=== PATIENT | male | born 1980 | race Hispanic/Latino ===

== ENCOUNTER 2016-11-23 15:06 | Emergency (ER) | payer OTHER ==
[~2016-11-23] VITALS: Ht 170.2 cm; Wt 152.0 kg
[2016-11-23 15:08] VITALS: BP 159/78
[2016-11-23] MEDS ORDERED: TEST200I15 (15:14)
[2016-11-23] MEDS ORDERED: LISI10TA4 (15:14)
--- NOTE | 2016-11-23 16:52 | REP ---
RENAL ULTRASOUND: Real-time sonographic evaluation of the kidneys is performed. The kidneys are normal in size and echotexture, right kidney measuring 12.3 x 6.4 x 6.5 cm and the left kidney 11.8 x 6.1 x 5.4 cm. There is no hydronephrosis, renal mass or nephrolithiasis. Urinary bladder is not well distended and not well evaluated. IMPRESSION: Negative renal ultrasound. Signed by Keo Khan MD 11/23/2016 04:54 P
--- NOTE | 2016-11-23 16:54 | REP ---
KUB ABDOMEN AND PELVIS: KUB film of abdomen and pelvis performed. Bowel gas pattern is normal. There is no evidence of bowel obstruction. Metallic clips are seen in the right upper quadrant. No definite abnormal calcifications are seen in the abdomen or pelvis. IMPRESSION: Unremarkable KUB exam. Signed by Keo Khan MD 11/23/2016 04:59 P
[2016-11-23 17:00] LABS: BASO % 0.5 % (0.0-1.0); EOS # 0.2 K/mm3 (0.0-0.50); EOS % 2.5 % (0.0-3.0); LARGE UNSTAINED CELL # 0.2 K/mm3 (0.0-0.4); LARGE UNSTAINED CELL % 1.9 % (0.0-4.0); LYMPH # 2.4 K/mm3 (1.5-4.5); LYMPH % 23.8 % (24.0-44.0); MEAN CORPUSCULAR HEMOGLOBIN 28.5 pg (27.0-33.0); MEAN CORPUSCULAR HGB CONC 34.2 g/dl (32.0-36.5); MEAN CORPUSCULAR VOLUME 83.3 fl (80.0-96.0); MONO # 0.5 K/mm3 (0.0-0.8); MONO % 4.8 % (0.0-5.0); NEUTROPHILS # 6.6 K/mm3 (1.8-7.7); NEUTROPHILS % 66.5 % (36.0-66.0); PLATELET COUNT, AUTOMATED 236 k/mm3 (150-450); RED CELL DISTRIBUTION WIDTH 13.9 % (11.5-14.5); WHITE BLOOD COUNT 9.9 K/mm3 (4.0-10.0)
[2016-11-23 17:26] LABS: ANION GAP 7 MEQ/L (8-16); BLOOD UREA NITROGEN 16 MG/DL (7-18); CALCIUM LEVEL 8.4 MG/DL (8.5-10.1); CARBON DIOXIDE LEVEL 28 MEQ/L (21-32); CHLORIDE LEVEL 103 MEQ/L (98-107); CREATININE FOR GFR 0.97 MG/DL (0.70-1.30); GLOMERULAR FILTRATION RATE > 60.0 (>60); GLUCOSE, FASTING 85 MG/DL (70-105); POTASSIUM SERUM 3.8 MEQ/L (3.5-5.1); SODIUM LEVEL 138 MEQ/L (136-145)
== END 2016-11-23 18:11 | disposition home or self-care (01) ==
LOC: M ED 15:36
DX: R30.0 Dysuria (principal); R31.0 Gross hematuria; Z79.899 Other long term (current) drug therapy; Z87.891 Personal history of nicotine dependence

== ENCOUNTER → 2016-11-23 | Outpatient (CLI) | payer OTHER ==
[~2016-11-23] MED LIST: LISI10TA4; TEST200I15
[2016-11-23 13:45] LABS: MEAN CORPUSCULAR HEMOGLOBIN 28.6 pg (27.0-33.0); MEAN CORPUSCULAR HGB CONC 33.5 g/dl (32.0-36.5); MEAN CORPUSCULAR VOLUME 85.2 fl (80.0-96.0); PLATELET COUNT, AUTOMATED 236 k/mm3 (150-450); WHITE BLOOD COUNT 8.4 K/mm3 (4.0-10.0)
[2016-11-23 13:58] LABS: ALBUMIN 3.5 GM/DL (3.2-5.2); ALKALINE PHOSPHATASE 80 U/L (45-117); ALT/SGPT 29 U/L (12-78); ANION GAP 6 MEQ/L (8-16); AST/SGOT 10 U/L (15-37); BILIRUBIN,TOTAL 0.7 MG/DL (0.2-1.0); BLOOD UREA NITROGEN 14 MG/DL (7-18); CALCIUM LEVEL 8.6 MG/DL (8.5-10.1); CARBON DIOXIDE LEVEL 31 MEQ/L (21-32); CHLORIDE LEVEL 103 MEQ/L (98-107); CHOLESTEROL LEVEL 217 MG/DL (<200); CREATININE FOR GFR 0.92 MG/DL (0.70-1.30); GLOMERULAR FILTRATION RATE > 60.0 (>60); GLUCOSE, FASTING 97 MG/DL (70-105); POTASSIUM SERUM 4.4 MEQ/L (3.5-5.1); SODIUM LEVEL 140 MEQ/L (136-145); TRIGLYCERIDES LEVEL 160 MG/DL (<150)
== END ==
LOC: M WUC 08:58
PROVIDERS: ATTEND Nurse Practitioner Family
DX: E29.1 Testicular hypofunction (principal)

== ENCOUNTER → 2017-11-14 | Outpatient (CLI) | payer OTHER ==
[2017-11-14 16:42] LABS: HEMOGLOBIN 15.3 g/dl (14.0-18.0); MEAN CORPUSCULAR VOLUME 85.2 fl (80.0-96.0); PLATELET COUNT, AUTOMATED 241 10^3/uL (150-450); RED BLOOD COUNT 5.28 10^6/uL (4.30-6.10); RED CELL DISTRIBUTION WIDTH 13.2 % (11.5-14.5); WHITE BLOOD COUNT 7.8 10^3/uL (4.0-10.0)
[2017-11-14 17:07] LABS: ERYTHROCYTE SEDIMENTATION RATE 8 mm/hr (0-15)
[2017-11-14 17:13] LABS: ALBUMIN 3.6 GM/DL (3.2-5.2); ALBUMIN/GLOBULIN RATIO 1.06 (1.00-1.93); ALKALINE PHOSPHATASE 87 U/L (45-117); ALT/SGPT 30 U/L (12-78); ANION GAP 7 MEQ/L (8-16); AST/SGOT 19 U/L (7-37); BILIRUBIN,TOTAL 0.6 MG/DL (0.2-1.0); BLOOD UREA NITROGEN 14 MG/DL (7-18); C REACTIVE PROTEIN QUANTITATIV 0.63 MG/DL (0.00-0.30); CALCIUM LEVEL 8.5 MG/DL (8.5-10.1); CARBON DIOXIDE LEVEL 28 MEQ/L (21-32); CHLORIDE LEVEL 101 MEQ/L (98-107); CHOLESTEROL LEVEL 232 MG/DL (<200); CREATININE FOR GFR 0.77 MG/DL (0.70-1.30); GLOMERULAR FILTRATION RATE > 60.0 (>60); GLUCOSE, FASTING 83 MG/DL (70-100); HDL CHOLESTEROL 58 MG/DL (>40); LDL CHOLESTEROL 149.2 MG/DL (<100); NON-HDL-C 174 MG/DL; POTASSIUM SERUM 4.6 MEQ/L (3.5-5.1); RHEUMATOID FACTOR QUANT < 10.0 IU/ML (0-15.0); SODIUM LEVEL 136 MEQ/L (136-145); TRIGLYCERIDES LEVEL 124 MG/DL (<150); URIC ACID 5.9 MG/DL (3.5-7.2)
[2017-11-19 10:19] LABS: ANA (HEP2) Negative (.); TESTOSTERONE %FREE+WEAKLY BOUN 23.1 % (9.0-46.0); TESTOSTERONE FREE+WEAKLY BOUND 50.6 ng/dL (40.0-250.0); TESTOSTERONE TOTAL 219 ng/dL (264-916)
[2017-11-19 14:16] LABS: Lyme Disease IgG Ab 18 kDa Ban Absent (.); Lyme Disease IgG Ab 23 kDa Ban Absent (.); Lyme Disease IgG Ab 28 kDa Ban Absent (.); Lyme Disease IgG Ab 30 kDa Ban Absent (.); Lyme Disease IgG Ab 39 kDa Ban Absent (.); Lyme Disease IgG Ab 41 kDa Ban Present (.); Lyme Disease IgG Ab 45 kDa Ban Absent (.); Lyme Disease IgG Ab 58 kDa Ban Absent (.); Lyme Disease IgG Ab 66 kDa Ban Absent (.); Lyme Disease IgG Ab 93 kDa Ban Absent (.); Lyme Disease IgG West Blot Int Negative (.); Lyme Disease IgG/IgM Antibodie <0.91 ISR (0.00-0.90); Lyme Disease IgM Ab 23 kDa Ban Absent (.); Lyme Disease IgM Ab 39 kDa Ban Absent (.); Lyme Disease IgM Ab 41 kDa Ban Absent (.); Lyme Disease IgM Ab Quantitati 0.82 index (0.00-0.79); Lyme Disease IgM West Blot Int Negative (.)
== END ==
LOC: M WUC 09:48
DX: E29.1 Testicular hypofunction (principal); M79.1 Myalgia
CPT/HCPCS: 84550

== ENCOUNTER 2017-11-30 09:01 | Emergency (ER) | payer MEDICAID, OTHER ==
[2017-11-30 10:48] LABS: INFLUENZA A AMPLIFICATION NEGATIVE (NEGATIVE); INFLUENZA B AMPLIFICATION NEGATIVE (NEGATIVE)
== END 2017-11-30 11:06 | disposition home or self-care (01) ==
LOC: M ED 09:01
DX: H66.91 Otitis media, unspecified, right ear (principal); R05 Cough; I10 Essential (primary) hypertension; Z87.891 Personal history of nicotine dependence; Z79.899 Other long term (current) drug therapy
CPT/HCPCS: 87502

== ENCOUNTER 2018-01-21 23:16 | Emergency (ER) | payer OTHER, MEDICAID ==
[2018-01-22] MEDS: GI COCKTAIL 50ML BTL(HYOSCYAMINE/MAALOX/LIDOCAINE VISCOUS)(1:3:1) PO (00:20)
[2018-01-22] MEDS: ONDANSETRON 4MG/2ML VIAL (J2405) IV (00:21)
[2018-01-22] MEDS: MORPHINE 4 MG/ML 1ML VIAL/SYRINGE (J2270) IV ×2 (00:21→01:04)
[2018-01-22] MEDS: NS 1,000 ML IV (00:22)
[2018-01-22] MEDS ORDERED: ISOVUE-370 76% 100ML VIAL (Q9967) As Ordered (00:33)
[2018-01-22 00:45] LABS: ALBUMIN 3.4 GM/DL (3.2-5.2); ALBUMIN/GLOBULIN RATIO 0.87 (1.00-1.93); ALKALINE PHOSPHATASE 80 U/L (45-117); ALT/SGPT 33 U/L (12-78); AMYLASE 66 U/L (25-115); ANION GAP 5 MEQ/L (8-16); AST/SGOT 15 U/L (7-37); BASO # 0.1 10^3/uL (0.0-0.2); BASO % 0.6 % (0.0-1.0); BILIRUBIN,DIRECT 0.1 MG/DL (0.0-0.2); BILIRUBIN,TOTAL 0.4 MG/DL (0.2-1.0); BLOOD UREA NITROGEN 18 MG/DL (7-18); CALCIUM LEVEL 8.3 MG/DL (8.5-10.1); CARBON DIOXIDE LEVEL 29 MEQ/L (21-32); CHLORIDE LEVEL 106 MEQ/L (98-107); CK-MB VALUE MASS 1.4 NG/ML (<3.6); CPK CREATINE PHOSPHOKINASE 70 U/L (39-308); CREATININE FOR GFR 0.97 MG/DL (0.70-1.30); EOS # 0.1 10^3/uL (0.0-0.50); EOS % 1.2 % (0.0-3.0); GLOMERULAR FILTRATION RATE > 60.0 (>60); GLUCOSE, FASTING 114 MG/DL (70-100); HEMATOCRIT 42.1 % (42.0-52.0); HEMOGLOBIN 14.7 g/dl (13.5-17.5); IMMATURE GRANULOCYTE % 0.4 % (0-3.0); LIPASE 156 U/L (73-393); LYMPH # 2.5 10^3/uL (1.5-4.5); LYMPH % 23.9 % (24.0-44.0); MEAN CORPUSCULAR HEMOGLOBIN 29.2 pg (27.0-33.0); MEAN CORPUSCULAR HGB CONC 34.9 g/dl (32.0-36.5); MEAN CORPUSCULAR VOLUME 83.5 fl (80.0-96.0); MONO # 0.8 10^3/uL (0.0-0.8); MONO % 7.3 % (0.0-5.0); NEUTROPHILS % 66.6 % (36.0-66.0); PLATELET COUNT, AUTOMATED 220 10^3/uL (150-450); POTASSIUM SERUM 3.7 MEQ/L (3.5-5.1); RED BLOOD COUNT 5.04 10^6/uL (4.30-6.10); RED CELL DISTRIBUTION WIDTH 12.9 % (11.5-14.5); SODIUM LEVEL 140 MEQ/L (136-145); TOTAL PROTEIN 7.3 GM/DL (6.4-8.2); TROPONIN I < 0.02 NG/ML (< 0.10); WHITE BLOOD COUNT 10.6 10^3/uL (4.0-10.0)
[2018-01-22 00:45] LABS: LACTIC ACID SEPSIS PROTOCOL 0.8 MMOL/L (0.4-2.0)
[2018-01-22] MEDS: OXYCODONE/APAP 5MG/325MG(BULK FOR ED) 1 TABLET PO (02:00)
== END 2018-01-22 02:24 | disposition home or self-care (01) ==
LOC: M ED 23:16
DX: R10.10 Upper abdominal pain, unspecified (principal); K42.9 Umbilical hernia without obstruction or gangrene; I10 Essential (primary) hypertension; Z79.899 Other long term (current) drug therapy
CPT/HCPCS: J2270

== ENCOUNTER 2018-01-22 09:17 | Day surgery (SDC) | payer OTHER ==
[2018-01-22 10:46] LABS: BASO # 0.1 10^3/uL (0.0-0.2); BASO % 0.4 % (0.0-1.0); EOS % 0.1 % (0.0-3.0); HEMATOCRIT 44.6 % (42.0-52.0); HEMOGLOBIN 15.3 g/dl (13.5-17.5); IMMATURE GRANULOCYTE % 0.4 % (0-3.0); LYMPH # 1.1 10^3/uL (1.5-4.5); LYMPH % 6.5 % (24.0-44.0); MEAN CORPUSCULAR HEMOGLOBIN 28.9 pg (27.0-33.0); MEAN CORPUSCULAR HGB CONC 34.3 g/dl (32.0-36.5); MEAN CORPUSCULAR VOLUME 84.2 fl (80.0-96.0); MONO # 0.9 10^3/uL (0.0-0.8); MONO % 5.8 % (0.0-5.0); NEUTROPHILS # 14.1 10^3/uL (1.8-7.7); NEUTROPHILS % 86.8 % (36.0-66.0); PLATELET COUNT, AUTOMATED 221 10^3/uL (150-450); RED CELL DISTRIBUTION WIDTH 12.9 % (11.5-14.5); WHITE BLOOD COUNT 16.2 10^3/uL (4.0-10.0)
[2018-01-22 11:08] LABS: ANION GAP 4 MEQ/L (8-16); BLOOD UREA NITROGEN 12 MG/DL (7-18); CALCIUM LEVEL 8.6 MG/DL (8.5-10.1); CARBON DIOXIDE LEVEL 30 MEQ/L (21-32); CHLORIDE LEVEL 102 MEQ/L (98-107); GLOMERULAR FILTRATION RATE > 60.0 (>60); GLUCOSE, FASTING 113 MG/DL (70-100); POTASSIUM SERUM 4.2 MEQ/L (3.5-5.1); SODIUM LEVEL 136 MEQ/L (136-145)
[2018-01-22] MEDS: ONDANSETRON 4 MG ORAL DISINTEGRATING TAB (Q0162 PER 1MG) PO (11:40)
[2018-01-22] MEDS: MORPHINE 10 MG/ML 1ML VIAL (J2270) IM (11:40)
[2018-01-22 11:51] LABS: KETONE, URINE AUTO RFX TRACE mg/dL (NEGATIVE); LEUKOCYTE ESTERASE UR AUTO RFX NEGATIVE (NEGATIVE); MUCUS, URINE RFX SMALL (NEGATIVE); NITRITE, URINE AUTO RFX NEGATIVE (NEGATIVE); RBC, URINE AUTO RFX 12 /HPF (0-3); SPECIFIC GRAVITY UR AUTO RFX 1.032 (1.002-1.035); SQUAM EPITHELIAL CELL UR AURFX 0 /HPF (0-6); WBC, URINE AUTO RFX 1 /HPF (0-3)
[2018-01-22] MEDS ORDERED: ISOVUE-370 76% 100ML VIAL (Q9967) As Ordered (12:55)
[2018-01-22] MEDS: NS 1,000 ML IV (13:30)
[2018-01-22] MEDS: MORPHINE 4 MG/ML 1ML VIAL/SYRINGE (J2270) IV ×2 (15:00→22:54)
[2018-01-22] MEDS: AMPICILLIN SOD/SULBACTAM SOD 1.5 GM in D5W MINI-BAG PLUS 50 ML IV (15:40)
[2018-01-22] MEDS ORDERED: MIDAZOLAM INJ 2 MG/2 ML VIAL (J2250) As Ordered (16:31)
[2018-01-22] MEDS ORDERED: LIDOCAINE 2% INJ 100 MG/5 ML SDV (FOR ANES.) As Ordered (16:32)
[2018-01-22] MEDS ORDERED: PROPOFOL 200 MG/20 ML VIAL As Ordered ×2 (16:32→16:33)
[2018-01-22] MEDS ORDERED: fentaNYL 100 MCG/2 ML INJECTION (J3010) As Ordered (16:32)
[2018-01-22] MEDS ORDERED: SUCCINYLCHOLINE 100 MG/5 ML SYRINGE (J0330) As Ordered (16:32)
[2018-01-22] MEDS ORDERED: ROCURONIUM BROMIDE 50 MG/5 ML VIAL As Ordered (16:33)
[2018-01-22] MEDS: metroNIDAZOLE 500 MG in APPROPRIATE DILUENT 1 EA IV (17:07)
[2018-01-22] MEDS ORDERED: ePHEDrine SULFATE 25 MG/5 ML(5MG/ML) SYRINGE As Ordered (17:25)
[2018-01-22] MEDS: BUPIVACAINE HCL 0.25% 30 ML VIAL As Ordered (17:30)
[2018-01-22] MEDS: LIDOCAINE 1% SDV INJ 30 ML VIAL As Ordered (17:30)
[2018-01-22] MEDS ORDERED: METOCLOPRAMIDE INJ 10MG/2ML VIAL (J2765) As Ordered (18:07)
[2018-01-22] MEDS ORDERED: ONDANSETRON 4MG/2ML VIAL (J2405) As Ordered (18:08)
[2018-01-22] MEDS ORDERED: KETOROLAC 60 MG/2 ML VIAL (J1885) As Ordered (18:10)
[2018-01-22] MEDS ORDERED: SUGAMMADEX SODIUM 500 MG/5 ML VIAL (BRIDION) As Ordered (18:20)
[2018-01-22] MEDS: LR 1,000 ML IV ×2 (18:40→19:00)
[2018-01-22] MEDS ORDERED: KETOROLAC 30 MG/ML VIAL (J1885) IV (18:45)
[2018-01-22] MEDS ORDERED: ACETAMINOPHEN TAB 650MG DOSE (2X325MG) PO (18:45)
[2018-01-22] MEDS ORDERED: METOCLOPRAMIDE INJ 10MG/2ML VIAL (J2765) IV (19:00)
[2018-01-22] MEDS ORDERED: PERCOCET 5MG/325MG TAB PO (19:00)
[2018-01-22] MEDS ORDERED: ONDANSETRON 4MG/2ML VIAL (J2405) IV (19:00)
[2018-01-22] MEDS ORDERED: MORPHINE 10 MG/ML 1ML VIAL (J2270) IV (19:00)
[2018-01-22] MEDS: fentaNYL 100 MCG/2 ML INJECTION (J3010) IV ×4 (19:15→19:35)
[2018-01-22] MEDS: SENOKOT S TAB PO (21:00)
[2018-01-22] MEDS: AMPICILLIN SOD/SULBACTAM SOD 3 GM in D5W MINI-BAG PLUS 100 ML IV (22:54)
[2018-01-22] MEDS: NORCO, ANEXSIA 5/325MG TABLET (HYDROcodone/ACETAMINOPHEN) PO (22:54)
[2018-01-23] MEDS: metroNIDAZOLE 500 MG in APPROPRIATE DILUENT 1 EA IV ×2 (01:00→09:06)
[2018-01-23] MEDS: AMPICILLIN SOD/SULBACTAM SOD 3 GM in D5W MINI-BAG PLUS 100 ML IV ×2 (04:23→10:47)
[2018-01-23 06:22] LABS: BASO # 0.1 10^3/uL (0.0-0.2); BASO % 0.7 % (0.0-1.0); EOS # 0.1 10^3/uL (0.0-0.50); EOS % 1.1 % (0.0-3.0); HEMATOCRIT 37.4 % (42.0-52.0); IMMATURE GRANULOCYTE % 0.3 % (0-3.0); LYMPH # 1.8 10^3/uL (1.5-4.5); LYMPH % 24.6 % (24.0-44.0); MEAN CORPUSCULAR HGB CONC 33.7 g/dl (32.0-36.5); MONO # 0.7 10^3/uL (0.0-0.8); MONO % 9.3 % (0.0-5.0); NEUTROPHILS # 4.6 10^3/uL (1.8-7.7); PLATELET COUNT, AUTOMATED 170 10^3/uL (150-450); RED BLOOD COUNT 4.35 10^6/uL (4.30-6.10); RED CELL DISTRIBUTION WIDTH 13.1 % (11.5-14.5); WHITE BLOOD COUNT 7.2 10^3/uL (4.0-10.0)
[2018-01-23 06:33] LABS: HEMOGLOBIN 12.6 g/dl (13.5-17.5)
[2018-01-23 06:53] LABS: ANION GAP 5 MEQ/L (8-16); BLOOD UREA NITROGEN 10 MG/DL (7-18); CARBON DIOXIDE LEVEL 31 MEQ/L (21-32); CHLORIDE LEVEL 103 MEQ/L (98-107); CREATININE FOR GFR 0.85 MG/DL (0.70-1.30); GLOMERULAR FILTRATION RATE > 60.0 (>60); GLUCOSE, FASTING 97 MG/DL (70-100); POTASSIUM SERUM 3.6 MEQ/L (3.5-5.1); SODIUM LEVEL 139 MEQ/L (136-145)
[2018-01-23] MEDS: SENOKOT S TAB PO (09:06)
[2018-01-23] MEDS: ENOXAPARIN 40 MG/0.4 ML SYRINGE (J1650) SC (09:06)
[2018-01-23] MEDS: NORCO, ANEXSIA 5/325MG TABLET (HYDROcodone/ACETAMINOPHEN) PO (09:08)
== END 2018-01-23 13:29 | disposition home or self-care (01) ==
LOC: M SDC 01-23 13:29 → M ED 09:17 → M SDC 15:40 → M MSPAV 19:48
DX: K35.80 Unspecified acute appendicitis (principal); I10 Essential (primary) hypertension; E66.01 Morbid (severe) obesity due to excess calories; K43.2 Incisional hernia without obstruction or gangrene; Z68.44 Body mass index [BMI] 60.0-69.9, adult; G47.9 Sleep disorder, unspecified
CPT/HCPCS: 44970

== ENCOUNTER 2018-02-12 08:03 | Emergency (ER) | payer OTHER | END 2018-02-12 10:55 | disposition home or self-care (01) | LOC: M ED 08:03 | DX: T81.4XXA Infection following a procedure, initial encounter (principal); Y92.9 Unspecified place or not applicable; Y93.9 Activity, unspecified; I10 Essential (primary) hypertension; K46.9 Unspecified abdominal hernia without obstruction or gangrene | CPT/HCPCS: 76705 ==

== ENCOUNTER → 2018-12-05 | Outpatient (REF) | payer OTHER ==
[~2018-12-05] MED LIST changes: +AUGM875T28 PO; +BACT800T5 PO; +FLAG500T PO; +LEVA750T7 PO; +NAPR-885 PO; +PERC5TAB12 PO; +VITA-121 PO
[2018-12-05 12:46] LABS: APPEARANCE, URINE CLEAR (CLEAR); BACTERIA, URINE AUTO NEGATIVE (NEGATIVE); BILIRUBIN, URINE AUTO NEGATIVE (NEGATIVE); BLOOD, URINE BLOOD NEGATIVE (NEGATIVE); COLOR, URINE YELLOW (YELLOW); GLUCOSE, URINE (UA) AUTO NEGATIVE (NEGATIVE); KETONE, URINE AUTO NEGATIVE (NEGATIVE); LEUKOCYTE ESTERASE, URINE AUTO NEGATIVE (NEGATIVE); MUCUS, URINE SMALL (NEGATIVE); NITRITE, URINE AUTO NEGATIVE (NEGATIVE); PROTEIN, URINE AUTO NEGATIVE (NEGATIVE); RBC, URINE AUTO 0 /HPF (0-3); SPECIFIC GRAVITY URINE AUTO 1.018 (1.002-1.035); SQUAMOUS EPITHELIAL CELL UR AU 0 /HPF (0-6); UROBILINOGEN, URINE AUTO 0.2 mg/dL (0.0-2.0); WBC, URINE AUTO 1 /HPF (0-3)
[2018-12-05 12:48] LABS: BASO # 0.1 10^3/uL (0.0-0.2); BASO % 0.9 % (0.0-1.0); EOS # 0.2 10^3/uL (0.0-0.50); EOS % 2.2 % (0.0-3.0); HEMATOCRIT 44.6 % (42.0-52.0); HEMOGLOBIN 14.9 g/dl (13.5-17.5); LYMPH # 2.7 10^3/uL (1.5-4.5); LYMPH % 25.4 % (24.0-44.0); MEAN CORPUSCULAR HEMOGLOBIN 27.6 pg (27.0-33.0); MEAN CORPUSCULAR HGB CONC 33.4 g/dl (32.0-36.5); MEAN CORPUSCULAR VOLUME 82.7 fl (80.0-96.0); MONO # 0.7 10^3/uL (0.0-0.8); MONO % 6.7 % (0.0-5.0); NEUTROPHILS # 6.7 10^3/uL (1.8-7.7); NEUTROPHILS % 64.2 % (36.0-66.0); PLATELET COUNT, AUTOMATED 295 10^3/uL (150-450); RED BLOOD COUNT 5.39 10^6/uL (4.30-6.10); WHITE BLOOD COUNT 10.5 10^3/uL (4.0-10.0)
[2018-12-05 13:15] LABS: HEMOGLOBIN A1c 6.1 %
[2018-12-05 13:32] LABS: ALBUMIN 3.6 GM/DL (3.2-5.2); ALT/SGPT 32 U/L (12-78); BILIRUBIN,TOTAL 0.5 MG/DL (0.2-1.0); BLOOD UREA NITROGEN 14 MG/DL (7-18); CALCIUM LEVEL 9.1 MG/DL (8.5-10.1); CARBON DIOXIDE LEVEL 28 MEQ/L (21-32); CHLORIDE LEVEL 101 MEQ/L (98-107); CHOLESTEROL LEVEL 252 MG/DL (<200); CHOLESTEROL RISK RATIO 4.581 (<5); FREE T4 1.18 NG/DL (0.76-1.46); GLOMERULAR FILTRATION RATE > 60.0 (>60); GLUCOSE, FASTING 85 MG/DL (70-100); HDL CHOLESTEROL 55 MG/DL (>40); LDL CHOLESTEROL 148 MG/DL (<100); NON-HDL-C 197 MG/DL; POTASSIUM SERUM 4.4 MEQ/L (3.5-5.1); SODIUM LEVEL 137 MEQ/L (136-145); TOTAL 25(OH) VITAMIN D 15.5 NG/ML (30.0-100.0); TOTAL PROTEIN 7.2 GM/DL (6.4-8.2); TRIGLYCERIDES LEVEL 243 MG/DL (<150)
== END ==
LOC: M LAB 11:50
PROVIDERS: ATTEND Family Medicine
DX: Z13.228 Encounter for screening for other metabolic disorders (principal)

== ENCOUNTER 2019-02-17 14:13 | Emergency (ER) | payer OTHER ==
[~2019-02-17] VITALS: Ht 170.2 cm; Wt 172.7 kg
[2019-02-17 14:54] LABS: BASO # 0.1 10^3/uL (0.0-0.2); BASO % 0.8 % (0.0-1.0); EOS # 0.2 10^3/uL (0.0-0.50); EOS % 2.5 % (0.0-3.0); HEMATOCRIT 40.5 % (42.0-52.0); HEMOGLOBIN 13.4 g/dl (13.5-17.5); LYMPH % 24.9 % (24.0-44.0); MEAN CORPUSCULAR HEMOGLOBIN 27.9 pg (27.0-33.0); MEAN CORPUSCULAR HGB CONC 33.1 g/dl (32.0-36.5); MEAN CORPUSCULAR VOLUME 84.4 fl (80.0-96.0); MONO # 0.6 10^3/uL (0.0-0.8); MONO % 7.8 % (0.0-5.0); NEUTROPHILS % 63.2 % (36.0-66.0); PLATELET COUNT, AUTOMATED 249 10^3/uL (150-450); WHITE BLOOD COUNT 7.9 10^3/uL (4.0-10.0)
[2019-02-17 15:13] LABS: ERYTHROCYTE SEDIMENTATION RATE 29 mm/hr (0-15)
[2019-02-17 15:18] LABS: BLOOD UREA NITROGEN 12 MG/DL (7-18); C REACTIVE PROTEIN QUANTITATIV 1.15 MG/DL (0.00-0.30); CALCIUM LEVEL 8.4 MG/DL (8.5-10.1); CARBON DIOXIDE LEVEL 30 MEQ/L (21-32); CHLORIDE LEVEL 108 MEQ/L (98-107); CREATININE FOR GFR 0.87 MG/DL (0.70-1.30); GLOMERULAR FILTRATION RATE > 60.0 (>60); GLUCOSE, FASTING 109 MG/DL (70-100); POTASSIUM SERUM 3.9 MEQ/L (3.5-5.1); SODIUM LEVEL 141 MEQ/L (136-145)
[2019-02-17 16:16] LABS: NT-PRO BNP 54 PG/ML (<125)
--- NOTE | 2019-02-17 16:39 | REP ---
Duplex extremity venous ultrasound: Bilateral lower extremity. History: Redness and swelling bilateral lower legs. Evaluate for DVT. Findings: Exam quality is somewhat inhibited due to patient body habitus. The deep veins are anechoic and fully compressible from the groin to the popliteal fossa in the left and right lower extremity. Color flow imaging is homogeneous. Spectral Doppler interrogation demonstrates intact respiratory variation in flow and normal manual augmentation of flow. There is no evidence of deep vein thrombosis. Impression: Negative bilateral lower extremity duplex venous ultrasound. No evidence of deep vein thrombosis. Electronically Signed by Yinka Lerma MD 02/17/2019 04:31 P
[2019-02-17] MEDS ORDERED: DOXY100C37 PO (16:56)
[2019-02-17] MEDS ORDERED: JOBSMIS MC (16:58)
[2019-02-17 17:13] VITALS: BP 148/77
== END 2019-02-17 17:23 | disposition home or self-care (01) ==
LOC: M ED 14:13
DX: L03.115 Cellulitis of right lower limb (principal); L03.116 Cellulitis of left lower limb; E66.9 Obesity, unspecified; I87.2 Venous insufficiency (chronic) (peripheral); I10 Essential (primary) hypertension; E78.5 Hyperlipidemia, unspecified; Z72.0 Tobacco use

== ENCOUNTER → 2019-03-16 | Outpatient (CLI) | payer OTHER ==
[~2019-03-16] MED LIST changes: +DOXY100C37 PO; +JOBSMIS MC
[2019-03-16 15:32] LABS: HEMATOCRIT 46.7 % (42.0-52.0); HEMOGLOBIN 14.9 g/dl (13.5-17.5); MEAN CORPUSCULAR HEMOGLOBIN 27.3 pg (27.0-33.0); MEAN CORPUSCULAR HGB CONC 31.9 g/dl (32.0-36.5); MEAN CORPUSCULAR VOLUME 85.5 fl (80.0-96.0); PLATELET COUNT, AUTOMATED 289 10^3/uL (150-450); RED BLOOD COUNT 5.46 10^6/uL (4.30-6.10); WHITE BLOOD COUNT 8.7 10^3/uL (4.0-10.0)
[2019-03-16 15:43] LABS: ALBUMIN 3.6 GM/DL (3.2-5.2); ALT/SGPT 41 U/L (12-78); BILIRUBIN,TOTAL 0.4 MG/DL (0.2-1.0); BLOOD UREA NITROGEN 21 MG/DL (7-18); CALCIUM LEVEL 9.2 MG/DL (8.5-10.1); CARBON DIOXIDE LEVEL 33 MEQ/L (21-32); CHLORIDE LEVEL 98 MEQ/L (98-107); CREATININE FOR GFR 1.05 MG/DL (0.70-1.30); GLOMERULAR FILTRATION RATE > 60.0 (>60); GLUCOSE, FASTING 96 MG/DL (70-100); POTASSIUM SERUM 3.9 MEQ/L (3.5-5.1); SODIUM LEVEL 138 MEQ/L (136-145); TOTAL PROTEIN 7.8 GM/DL (6.4-8.2)
== END ==
LOC: M WUC 11:23
PROVIDERS: ATTEND Nurse Practitioner Family
DX: I89.0 Lymphedema, not elsewhere classified (principal)

== ENCOUNTER → 2019-04-01 | Outpatient (RCR) | payer OTHER | LOC: M PT 03-17 08:30 | PROVIDERS: ATTEND Nurse Practitioner Family | DX: I89.0 Lymphedema, not elsewhere classified (principal) ==

== ENCOUNTER → 2019-04-01 | Outpatient (CLI) | payer OTHER ==
[2019-04-01 13:29] LABS: BLOOD UREA NITROGEN 12 MG/DL (7-18); CALCIUM LEVEL 9.3 MG/DL (8.5-10.1); CARBON DIOXIDE LEVEL 34 MEQ/L (21-32); CHLORIDE LEVEL 102 MEQ/L (98-107); CREATININE FOR GFR 0.92 MG/DL (0.70-1.30); GLOMERULAR FILTRATION RATE > 60.0 (>60); GLUCOSE, FASTING 110 MG/DL (70-100); POTASSIUM SERUM 3.7 MEQ/L (3.5-5.1); SODIUM LEVEL 142 MEQ/L (136-145)
== END ==
LOC: M LAB 11:40
PROVIDERS: ATTEND Nurse Practitioner Family
DX: E87.6 Hypokalemia (principal)

== ENCOUNTER 2019-04-15 08:30 | Outpatient (RCR) | payer OTHER | END 2019-05-02 | LOC: M PT 08:30 | PROVIDERS: ATTEND Nurse Practitioner Family | DX: I89.0 Lymphedema, not elsewhere classified (principal) ==

== ENCOUNTER → 2019-05-25 | Outpatient (CLI) | payer OTHER ==
[2019-05-25 16:34] LABS: BASO # 0.1 10^3/uL (0.0-0.2); BASO % 0.6 % (0.0-1.0); EOS # 0.1 10^3/uL (0.0-0.5); EOS % 1.4 % (0.0-3.0); HEMATOCRIT 45.9 % (42.0-52.0); HEMOGLOBIN 15.1 g/dl (13.5-17.5); LYMPH # 2.2 10^3/uL (1.5-5.0); LYMPH % 22.9 % (24.0-44.0); MEAN CORPUSCULAR HEMOGLOBIN 27.2 pg (27.0-33.0); MEAN CORPUSCULAR HGB CONC 32.9 g/dl (32.0-36.5); MEAN CORPUSCULAR VOLUME 82.6 fl (80.0-96.0); MONO # 0.8 10^3/uL (0.0-0.8); MONO % 8.4 % (0.0-5.0); NEUTROPHILS # 6.3 10^3/uL (1.5-8.5); NEUTROPHILS % 66.3 % (36.0-66.0); PLATELET COUNT, AUTOMATED 268 10^3/uL (150-450); RED BLOOD COUNT 5.56 10^6/uL (4.30-6.10); WHITE BLOOD COUNT 9.4 10^3/uL (4.0-10.0)
[2019-05-25 16:39] LABS: ALBUMIN 3.6 GM/DL (3.2-5.2); ALT/SGPT 32 U/L (12-78); BILIRUBIN,TOTAL 0.5 MG/DL (0.2-1.0); BLOOD UREA NITROGEN 12 MG/DL (7-18); CALCIUM LEVEL 9.2 MG/DL (8.5-10.1); CARBON DIOXIDE LEVEL 27 MEQ/L (21-32); CHLORIDE LEVEL 103 MEQ/L (98-107); CREATININE FOR GFR 0.94 MG/DL (0.70-1.30); GLOMERULAR FILTRATION RATE > 60.0 (>60); GLUCOSE, FASTING 81 MG/DL (70-100); SODIUM LEVEL 139 MEQ/L (136-145); TOTAL PROTEIN 7.1 GM/DL (6.4-8.2); TROPONIN I < 0.02 NG/ML (< 0.10)
[2019-05-25 17:03] LABS: H PYLORI QUALITATIVE IgG NEGATIVE (NEGATIVE)
== END ==
LOC: M WUC 14:05
PROVIDERS: ATTEND Nurse Practitioner Family
DX: R10.13 Epigastric pain (principal)

== ENCOUNTER 2019-11-17 12:20 | Inpatient (IN) | payer OTHER ==
[2019-11-17] VITALS (7 sets, daily range): BP systolic 135; BP diastolic 62–89; O2SAT 83–91
[~2019-11-17] VITALS: Ht 170.2 cm; Wt 170.3 kg
[~2019-11-17 12:20] MED LIST changes: +DULO30CA9 PO; +IPRA0.00 NEB; +LISI10TA4 PO; +MELO15TA28 PO; +MONT10TA4 PO; +OMEP-218 PO; +PRED10PA2 PO; +SYMB80INH INH
[2019-11-17] MEDS ORDERED: COMBIVENT RESPIMAT 100-20MCG INHALER 4GM INH ONE (13:30)
[2019-11-17 13:32] LABS: ABG BASE EXCESS -2.7 (-2.0-2.0); ABG HCO3 20.2 MEQ/L (22.0-26.0); ABG O2 SATURATION 92.1 % (95.0-99.0); ABG PARTIAL PRESSURE CO2 30.4 mmHg (35.0-45.0); ABG PARTIAL PRESSURE O2 65.9 mmHg (75.0-100.0); ABG STANDARD HCO3 22.1 MEQ/L (22.0-26.0); ABG TOTAL CO2 21.2 MEQ/L (22.0-29.0); ABG pH (ARTERIAL) 7.441 UNITS (7.350-7.450); BASO # 0.1 10^3/uL (0.0-0.2); EOS # 0.8 10^3/uL (0.0-0.5); EOS % 6.3 % (0.0-3.0); HEMATOCRIT 46.7 % (42.0-52.0); HEMOGLOBIN 14.9 g/dl (13.5-17.5); LYMPH # 1.3 10^3/uL (1.5-5.0); LYMPH % 10.2 % (24.0-44.0); MEAN CORPUSCULAR HEMOGLOBIN 25.8 pg (27.0-33.0); MEAN CORPUSCULAR HGB CONC 31.9 g/dl (32.0-36.5); MEAN CORPUSCULAR VOLUME 80.9 fl (80.0-96.0); MONO % 7.4 % (0.0-5.0); NEUTROPHILS # 9.3 10^3/uL (1.5-8.5); NEUTROPHILS % 71.1 % (36.0-66.0); RED BLOOD COUNT 5.77 10^6/uL (4.30-6.10); WHITE BLOOD COUNT 13.1 10^3/uL (4.0-10.0)
[2019-11-17 13:41] LABS: INR 1.3; PARTIAL THROMBOPLASTIN TIME 26.7 SECONDS (25.0-38.4); PROTHROMBIN TIME 15.9 SECONDS (11.8-14.0)
--- NOTE | 2019-11-17 13:49 | REP ---
CHEST, SINGLE VIEW: Single view of the chest is performed and compared to prior studies most recent of which is 10/15/2019. There are diffuse bilateral infiltrates present which appear to have increased since prior study. The heart is upper limits of normal in size. Mediastinal silhouette appears somewhat magnified. Electronically Signed by Keo Khan MD 11/18/2019 09:10 A
[2019-11-17 14:00] LABS: ALBUMIN 2.7 GM/DL (3.2-5.2); ALT/SGPT 49 U/L (12-78); BILIRUBIN,DIRECT 0.1 MG/DL (0.0-0.2); BILIRUBIN,TOTAL 0.5 MG/DL (0.2-1.0); BLOOD UREA NITROGEN 14 MG/DL (7-18); CALCIUM LEVEL 8.9 MG/DL (8.5-10.1); CARBON DIOXIDE LEVEL 24 MEQ/L (21-32); CHLORIDE LEVEL 106 MEQ/L (98-107); CK-MB VALUE MASS 1.1 NG/ML (<3.6); CPK CREATINE PHOSPHOKINASE 342 U/L (39-308); CREATININE FOR GFR 1.15 MG/DL (0.70-1.30); FREE T4 1.43 NG/DL (0.76-1.46); GLOMERULAR FILTRATION RATE > 60.0 (>60); GLUCOSE, FASTING 133 MG/DL (70-100); MB/CK RELATIVE INDEX 0.32 (< OR =4); NT-PRO BNP 478 PG/ML (<125); POTASSIUM SERUM 4.2 MEQ/L (3.5-5.1); SODIUM LEVEL 138 MEQ/L (136-145); TOTAL PROTEIN 6.2 GM/DL (6.4-8.2); TROPONIN I < 0.02 NG/ML (< 0.10)
[2019-11-17] MEDS ORDERED: ISOVUE-370 76% 100ML VIAL (Q9967) As Ordered ONE (14:24)
[2019-11-17] MEDS ORDERED: SIME1CAP3 PO (14:50)
[2019-11-17] MEDS ORDERED: FUROSEMIDE 40 MG/4 ML VIAL (J1940) IV ONE (15:00)
[2019-11-17] MEDS ORDERED: ACETAMINOPHEN TAB 650MG DOSE (2X325MG) PO PRN (15:00)
[2019-11-17] MEDS: methylPREDNISolone INJ 125 MG/2 ML VIAL (J2930) IV SCH ×2 (15:44→20:57)
[2019-11-17] MEDS ORDERED: FUROSEMIDE 20 MG/2 ML VIAL (J1940) IV ONE (16:00)
[2019-11-17] MEDS ORDERED: LEVALBUTEROL 1.25 MG/0.5 ML CONCENTRATE NEB INH PRN (17:00)
--- NOTE | 2019-11-17 17:18 | HPEPDOC ---
[facility] Medical History & Physical Date of Admission Nov 17, 2019 Date of Service: Nov 17, 2019 Attending Physician: SHAY BALL DO History and Physical CHIEF COMPLAINT: Shortness of Breath HISTORY OF PRESENT ILLNESS: Patient is a 39 year old male who presented to the [facility] ER with complaint of worsening shortness of breath. The patient states that he has been seen at [facility] in [place] in October for shortness of breath. He is unsure of his diagnosis at the time but states that he was given antibiotics and steroids. Additionally per the medical record the patient was found to have retroperitoneal and mesenteric lymphadenopathy as well as mediastinal and bilateral hilar lymphadenopathy. The patient was referred to Hematology/Oncology for suspicion of lymphoma. On evaluation at [facility] on 11/05/2019 he was felt less likely to have lymphoma and more likely to have Sarcoidosis. The patient had been referred for CT-guided core biopsy of the retroperitoneal lymph nodes. Sine 11/05/2019 the patient has had progressively worsening shortness of breath. He states that he has difficulty breathing. He denies any chest pain associated with his shortness of breath. He denies any current leg swelling but states that he has a history of leg edema and cellulitis. He denies any rashes. In the ER the patient was found to be hypoxic with pulse oximetry of 80%. He was placed on Nasal cannula with 91% on 5L. Imaging demonstrated bilateral opacities. He was tachycardic and afebrile. Respiratory panel was negative. CTA of the chest was ordered and pending. Hospitalist service was consulted for further evaluation and management PAST MEDICAL HISTORY: 1. Obstructive Sleep Apnea/Pickwickian Syndrome Noncompliant on CPAP 2. Leg Edema 3. Hypertension 4. Morbid Obesity PAST SURGICAL HISTORY: NONE SOCIAL HISTORY: Patient is an on/off smoker. He states that he quit in . He previously smoked 1 pack per day. He admits to alcohol use socially. He denies any illicit or IV drug use. He denies any inhalational drug abuse FAMILY HISTORY: Patients mother is alive and well. She has a history of hyperlipidemia. His father is alive and living in [place]. He has a history of hypertension and COPD. ALLERGIES: Please see below. REVIEW OF SYSTEMS: CONSTITUTIONAL: Denies fevers, chills. Admits to fatigue. Admits to weight-loss over the past month. HEENT: Admits to a dry cough. Denies sore throat or difficulty swallowing CARDIOVASCULAR: Denies chest pain. Denies palpitations or feelings of the heart racing RESPIRATORY: Admits to shortness of breath with pain on deep inspiration. Admits to cough. Denies sputum production GASTROINTESTINAL: Denies abdominal pain. Denies nausea, vomiting, or diarrhea. GENITOURINARY: Denies dysuria. Denies increased frequency. Denies urgency SKIN: Denies any rashes or lesions. Denies any facial rashes. MUSCULOSKELETAL: Admits to chronic musculoskeletal pain and fatigue NEUROLOGICAL: Denies changes in gait or speech. Denies muscle weakness PSYCHIATRIC: Denies depression or anxiety ENDOCRINE: Denies heat intolerance or cold intolerance. HEMATOLOGIC/LYMPHATIC: Denies easy bruising or bleeding. HOME MEDICATIONS: Please see below. PHYSICAL EXAMINATION: VITAL SIGNS: Temperature 98.9, pulse 102, respiratory rate 20, blood pressure 107/79, pulse oximetry 93% 5L NC GENERAL APPEARANCE: Patient is awake, alert, and oriented. He is morbidly obese. He does not appear to be in any acute distress. He is sitting on the side of the bed. HEENT: Atraumatic, normocephalic. Eyes are nonicteric. Trachea is midline. CARDIOVASCULAR: Normal S1, S2. Distant heart sounds. Tachycardic. regular rhythm. No clicks, rubs, or murmurs LUNGS: Fine crackles in the bases otherwise clear vesicular breath sounds bilaterally. No wheezes or rhonchi. No accessory muscle use ABDOMEN: Morbidly obese. Soft, nondistended. Nontender. No rebound tenderness or guarding. Normoactive bowel sounds throughout EXTREMITIES: No edema. No nodules. Full and equal pulses in bilateral upper and lower extremities NEUROLOGICAL: No focal neurological deficits PSYCHIATRIC: Mood and affect appear appropriate LABORATORY DATA: See below. IMAGING: CHEST, SINGLE VIEW: Single view of the chest is performed and compared to prior studies most recent of which is 10/15/2019. There are diffuse bilateral infiltrates present which appear to have mildly increased since prior study. The heart is upper limits of normal in size. Mediastinal silhouette appears somewhat magnified. MICROBIOLOGY: Please see below. ASSESSMENT: Patient is a 39 year old male who presented to the [facility] ER with complaint of shortness of breath. He has been evaluated in October at [facility] and found to have retroperitoneal, mediastinal, and hilar lymphadenopath y. He had initially improved however since discharge he has progressively gotten more short of breath. In the ER the patient was found to be hypoxic . PLAN: 1. Acute Hypoxemic Respiratory Failure secondary to diffuse Interstitial Lung Disease vs virus pneumonia Our differential diagnosis includes: Sarcoidosis, acute interstitial pneumonia, eosinophilic pneumonia, nonspecific interstitial pneumonia, cryptogenic pneumonia -Patient presented with progressively worsening shortness of breath. He has been evaluated previously at [facility] and noted to have hilar and mediastinal lymphadenopathy. Since discharge patients shortness of breath has progressively worsening -Will obtain records from [facility] and [facility] -Chest X-ray was ordered and demonstrated diffuse bilateral infiltrates -CTA ordered. Official read is pending. Appears to demonstrate continued mediastinal lymphadenopathy as well as bilateral opacifications -Pulmonary Medicine has been consulted and case was discussed with Dr. Tam with recommendations for Methylprednisolone 80mg q8H IV. Recommendations appreciated -Respiratory orders for O2 Sats 88-92% -Does not appear to be infectious in etiology. Given patients previous episode at [facility] that appeared to respond to steroids he may possibly have an Interstitial lung disease such as Sarcoidosis or a cryptogenic organizing pneumonia. Will hold antibiotics for now. Patient looks nontoxic, he is afebrile, does not have increased cough. He has minimal whitish sputum production. Also patient does not have any generalized weakness, muscle ache. -ABG demonstrating hypoxemia. Normal pH and compensated CO2 2. Allergic Asthma -Will continue patients Symbicort and Montelukast -Xopenex Nebulizer Q4h as needed for shortness of breath - We'll check patient for aspergillosis 3. Obstructive Sleep Apnea/Pickwickian Syndrome -Patient is morbidly obese. He has been told he has ANCA but is noncompliant with sleep apnea. Likely has component of obesity hypoventilation syndrome given his weight. -ABG obtained demonstrated a pH of 7.4, pCO2 of 30.4, HCO3 20.2. -Will attempt to obtain records from patients prior sleep study where he was diagnosed with sleep apnea - Echo ordered to rule out pulmonary hypertension 4. Hypertension -Will continue Lisinopril 5. Chronic Pain -Continue patients Cymbalta 6. GERD -Will continue Omeprazole 7. DVT prophylaxis -Will continue Heparin SQ I, Shay Ball, have independently examined this patient and performed my own physical exam, as well as reviewed the documentation. I have discussed in detail with the resident / student the findings and plan of treatment as documented by the resident / student. I agree with their findings and treatment plan. I will continue to follow the patient during this hospital stay. Vital Signs Vital Signs Date Time Temp Pulse Resp B/P (MAP) Pulse Ox O2 Delivery O2 Flow Rate FiO2 11/17/19 13:35 116 22 91 Nasal Cannula 4.0 11/17/19 13:32 118/65 (82) 11/17/19 12:20 98.0 Laboratory Data Labs 24H Laboratory Tests 2 11/17/19 13:11: Immature Granulocyte % (Auto) 4.0H, Neutrophils (%) (Auto) 71.1H, Lymphocytes (%) (Auto) 10.2L, Monocytes (%) (Auto) 7.4H, Eosinophils (%) (Auto) 6.3H, Basophils (%) (Auto) 1.0, Neutrophils # (Auto) 9.3H, Lymphocytes # (Auto) 1.3L, Monocytes # (Auto) 1.0H, Eosinophils # (Auto) 0.8H, Basophils # (Auto) 0.1, Nucleated Red Blood Cells % (auto) 0.2H, Prothrombin Time 15.9H, Prothromb Time International Ratio 1.30, Activated Partial Thromboplast Time 26.7, Blood Gas Bicarbonate Standard 22.1, Arterial Blood pH 7.441, Arterial Blood Partial Pressure CO2 30.4L, Arterial Blood Partial Pressure O2 65.9L, Arterial Blood Total CO2 21.2L, Arterial Blood HCO3 20.2L, Arterial Blood Base Excess -2.7L, Arterial Blood Oxygen Saturation 92.1L, Anion Gap 8, Glomerular Filtration Rate > 60.0, Calcium Level 8.9, Total Bilirubin 0.5, Direct Bilirubin 0.1, Aspartate Amino Transf (AST/SGOT) 44H, Alanine Aminotransferase (ALT/SGPT) 49, Alkaline Ph osphatase 152H, Total Creatine Kinase 342H, Creatine Kinase MB 1.1, Creatine Kinase MB Relative Index 0.32, Troponin I < 0.02, SC-Gxq-A-Type Natriuretic Peptide 478H, Total Protein 6.2L, Albumin 2.7L, Albumin/Globulin Ratio 0.77L, Thyroid Stimulating Hormone (TSH) 2.540, Free Thyroxine 1.43 11/17/19 13:16: Lactic Acid Level 3.5*H CBC/BMP Laboratory Tests 11/17/19 13:11 Microbiology Microbiology 11/17/19 Blood Culture, Received Pending 11/17/19 Blood Culture, Received Pending 11/17/19 Respiratory Virus Panel (PCR) ([facility]) - Final, Complete Home Medications Scheduled Budesonide/Formoterol (Symbicort 80-4.5 Mcg Inhaler) 6.9 Gm Hfa.aer.ad, 2 PUFF INH BID Duloxetine Hcl (Duloxetine HCl) 30 Mg Capsule.dr, 30 MG PO DAILY Lisinopril (Lisinopril) 10 Mg Tablet, 10 MG PO DAILY Meloxicam (Meloxicam) 15 Mg Tablet, 15 MG PO DAILY Montelukast Sodium (Montelukast Sodium) 10 Mg Tablet, 10 MG PO DAILY Omeprazole (Omeprazole) 20 Mg Capsule.dr, 20 MG PO DAILY Scheduled PRN Ipratropium/Albuterol Sulfate (Iprat-Albut 0.5-3(2.5) mg/3 ml) 3 Ml Ampul.neb, 1 VIAL NEB Q6H PRN for SHORTNESS OF BREATH Simethicone (Simethicone) 180 Mg Capsule, 180 MG PO TID PRN for GAS PAIN Allergies Coded Allergies: dulaglutide (Verified Adverse Reaction, Unknown, 11/17/19) GI upset A-FIB/CHADSVASC A-FIB History Current/History of A-Fib/PAF?: No KYM BHATIA DO Nov 17, 2019 17:18 SHAY BALL DO Nov 18, 2019 07:37
[2019-11-17] MEDS ORDERED: SLF 3 ML SYR IV PRN (18:15)
[2019-11-17 18:27] LABS: ABG BASE EXCESS -0.4 (-2.0-2.0); ABG HCO3 22.3 MEQ/L (22.0-26.0); ABG O2 SATURATION 90.3 % (95.0-99.0); ABG PARTIAL PRESSURE CO2 31.5 mmHg (35.0-45.0); ABG PARTIAL PRESSURE O2 57.4 mmHg (75.0-100.0); ABG TOTAL CO2 23.2 MEQ/L (22.0-29.0); ABG pH (ARTERIAL) 7.467 UNITS (7.350-7.450)
[2019-11-17] MEDS: COMBIVENT RESPIMAT 100-20MCG INHALER 4GM INH SCH (19:54)
[2019-11-17] MEDS: SYMBICORT 80/4.5MCG INHALER 6GM INH SCH (19:54)
--- NOTE | 2019-11-17 20:15 | ECGEPIP ---
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
[2019-11-17] MEDS: HEPARIN SOD (PORCINE) 5000 UNITS/ML VIAL (J1644 PER 1000UNITS) SC SCH (20:57)
[2019-11-17] MEDS: SLF 3 ML SYR IV SCH (20:58)
[2019-11-18] VITALS (14 sets, daily range): BP systolic 119–137; BP diastolic 64–89; O2SAT 89–94
[2019-11-18] MEDS: COMBIVENT RESPIMAT 100-20MCG INHALER 4GM INH SCH ×4 (01:45→20:00)
[2019-11-18] MEDS: methylPREDNISolone INJ 125 MG/2 ML VIAL (J2930) IV SCH ×3 (05:10→21:14)
[2019-11-18] MEDS: SLF 3 ML SYR IV SCH ×3 (05:10→21:14)
[2019-11-18 05:32] LABS: HEMATOCRIT 45.7 % (42.0-52.0); HEMOGLOBIN 14.9 g/dl (13.5-17.5); MEAN CORPUSCULAR HEMOGLOBIN 26.5 pg (27.0-33.0); MEAN CORPUSCULAR HGB CONC 32.6 g/dl (32.0-36.5); MEAN CORPUSCULAR VOLUME 81.3 fl (80.0-96.0); PLATELET COUNT, AUTOMATED 145 10^3/uL (150-450); RED BLOOD COUNT 5.62 10^6/uL (4.30-6.10); WHITE BLOOD COUNT 13.5 10^3/uL (4.0-10.0)
[2019-11-18 05:39] LABS: BLOOD UREA NITROGEN 17 MG/DL (7-18); CALCIUM LEVEL 8.8 MG/DL (8.5-10.1); CARBON DIOXIDE LEVEL 23 MEQ/L (21-32); CHLORIDE LEVEL 105 MEQ/L (98-107); CREATININE FOR GFR 1.12 MG/DL (0.70-1.30); GLOMERULAR FILTRATION RATE > 60.0 (>60); GLUCOSE, FASTING 182 MG/DL (70-100); MAGNESIUM LEVEL 2.1 MG/DL (1.8-2.4); POTASSIUM SERUM 4.6 MEQ/L (3.5-5.1); SODIUM LEVEL 139 MEQ/L (136-145)
--- NOTE | 2019-11-18 07:11 | REP ---
CT ANGIOGRAM CHEST: TECHNIQUE: Axial contrast enhanced images from the thoracic inlet to the upper abdomen using 100 mL Isovue 370 intravenous contrast material with multiplanar reformations. There is no CT evidence of pulmonary embolism. There is no thoracic aortic aneurysm or dissection. Heart is not enlarged. There is extensive mediastinal and hilar adenopathy. Largest lymph node is in the right anterior pericarinal region and measures approximately 2.1 x 3.4 cm. No axillary adenopathy is seen. There is no pleural or pericardial effusion. There are diffuse bilateral infiltrates present. There is upper abdominal adenopathy in the gastrohepatic ligament, joe hepatis, and along the celiac axis. There is mild retrocrural adenopathy. There appear to be multiple small liver nodules. IMPRESSION: No CT evidence of pulmonary embolism. Diffuse bilateral infiltrates in the lungs. Extensive mediastinal and hilar adenopathy. Adenopathy is also seen in the upper abdomen. There appear to be multiple small liver nodules present. Electronically Signed by Keo Khan MD 11/18/2019 09:42 A
[2019-11-18] MEDS: SYMBICORT 80/4.5MCG INHALER 6GM INH SCH ×2 (07:23→20:11)
[2019-11-18] MEDS: MONTELUKAST 10 MG TAB PO SCH (08:39)
[2019-11-18] MEDS: HEPARIN SOD (PORCINE) 5000 UNITS/ML VIAL (J1644 PER 1000UNITS) SC SCH ×2 (08:39→21:14)
[2019-11-18] MEDS: lisinopriL 10 MG TAB PO SCH (08:40)
[2019-11-18] MEDS: OMEPRAZOLE 20 MG CAP PO SCH (08:40)
[2019-11-18] MEDS: MELOXICAM (MOBIC) 7.5 MG TAB PO SCH (08:40)
[2019-11-18] MEDS: DULoxetine 30 MG CAP (CYMBALTA) PO SCH (08:40)
[2019-11-18] MEDS: DOXYCYCLINE HYCLATE 100 MG TAB PO SCH ×2 (11:10→21:14)
[2019-11-18] MEDS: cefTRIAXone SOD 2 GM in D5W MINI-BAG PLUS 50 ML IV SCH (11:10)
--- NOTE | 2019-11-18 11:33 | CR ---
DATE OF CONSULTATION: 11/18/2019 ATTENDING PHYSICIAN: Eduardo Ball MD REASON FOR CONSULTATION: Abnormal x-ray and hypoxemia. HISTORY OF PRESENT ILLNESS: Mr. Mireles is a very pleasant 39-year-old gentleman who has smoked off and on much of his adult life. He said he started feeling somewhat poorly several months ago. He was seen by his attending in [place] for shortness of breath (SOB) complaints, admitted to [facility]. We only have some of those records available. He said he had an extensive cardiac workup, was told his heart was fine, told he may have had either pneumonia or sarcoid and was discharged. He said he really did not feel any better. He then went to [facility] and was sent to [facility]. From there, he was told he probably had lymphoma and was sent to see oncology. There he was told it was unlikely had lymphoma and was arranged for a biopsy of a retroperitoneal lymph, but due to increasing shortness of breath (SOB) was admitted here in the interim. His history is significant in that he said he had a positive home sleep test about 3 years ago for significant ANCA, but never followed up to get pressure therapy. He said he does have some sweats at night, but no fevers. He wonders if this is related to his sleep apnea, and it is quite likely. His appetite has been good. His weight has been stable. In fact, he said on purpose he has lost about 20 pounds over the last several months. No other systemic complaints. In the ER, CT scan shows significant (would like second listener for this highlighted section hilar mediastinal adenopathy with retroperitoneal adenopathy. There may be one hypodense lesion in the liver. He has diffuse both interstitial alveolar infiltrates without absolute convincing air bronchograms. Currently he has some occasional discomfort, only with deep inspiration. He says his cough is productive occasionally of some yellowish greenish sputum. Maybe some mild blood tinged material with a cough paroxysm. He denies any previous known pulmonary history other than his smoking. ALLERGIES: Listed as: 1. DULAGLUTIDE. CURRENT MEDICATIONS IN HOSPITAL: - Tylenol - subcu heparin - Combivent - Symbicort - Prinivil - Mobic - Singulair - Prilosec - Cymbalta - IV Solu-Medrol - Xopenex PAST MEDICAL HISTORY: Significant for: ANCA, currently not on pressure therapy. Chronic lower extremity edema. Hypertension. Morbid obesity. Some mention of question whether or not he had underlying asthma at some point. SURGICAL HISTORY: None. SOCIAL HISTORY: On and off smoker. Social alcohol. No drug use. FAMILY HISTORY: Significant for father with hypertension and obstructive lung disease. REVIEW OF SYSTEMS: As per the HPI. No fevers or chills. HEENT: Unremarkable for double or blurred vision. PULMONARY: Is as per the HPI. CARDIAC: Unremarkable for any angina. GASTROINTESTINAL (GI): Unremarkable for nausea or vomiting. GENITOURINARY (): Unremarkable for frequency or urgency. NEUROLOGIC: No seizures or strokes. ENDOCRINE: Unremarkable for diabetes or thyroid disease. HEMATOLOGIC: Unremarkable for bruising or bleeding. MUSCULOSKELETAL: Unremarkable for any new arthralgias or myalgias, PSYCHIATRIC: Unremarkable. PHYSICAL EXAMINATION: He is a pleasant gentleman in no distress. Weight 171.2 kilos. T-max 97. Blood pressure 120-130 systolic, heart rate in the low 100s with a sinus mechanism. Respiratory rate 22-24. HEENT: Is otherwise normocephalic, atraumatic. Pupils react. Neck is supple. Trachea is midline. Mucous membranes, nose and mouth are moist. Airway class III. Nasal cannula oxygen in place. CHEST: Shows diminished but symmetric expansion. There is some early inspiratory crackles at the bases that do improve somewhat with deep inspiration. No egophony or wheeze. No rubs. CARDIAC EXAM: Distant but regular. No gallop or rub. Peripheral pulses diminished, but palpable. There is at least 1+ edema. ABDOMEN: Morbidly obese, soft with active bowel sounds. Organomegaly or masses difficult in view of his body habitus. EXTREMITIES: Without cyanosis or clubbing. There are some chronic venous stasis changes. NEUROLOGIC: He is awake, alert and appropriate. PSYCHIATRIC: Normal mood and affect. Most recent laboratories show a white blood cell count of 13.5, hemoglobin 14.9, platelet count 145,000. Differential done yesterday shows no immature forms. Sodium 139, potassium 3.6, chloride 105, CO2 23, BUN 17, creatinine 1.12, glucose 182. Lactic acid initially 3.5, down to 2.7. Most recent blood gas done on nasal cannula oxygen shows a pH of 7.467, pCO2 of 31.5, and a pO2 of 57 with a 90% saturation. Chest x-rays and CT scans are reviewed. They are as outlined above. IMPRESSION: 1. Hypoxemic respiratory failure, likely acute on chronic. 2. ANCA currently not on pressure therapy. 3. Diffuse adenopathy with interstitial infiltrates, suspect sarcoid. 4. Suspect acute infectious process. 5. Chronic venous stasis changes. 6. Previous tobacco history. RECOMMENDATIONS: At this point, I am in full agreement with IV steroids. I would add empiric antimicrobials given his sputum production and we will culture his sputum. Certainly I would favor sarcoid over lymphoma given the appearance of his CT scan, but at some point we will need to obtain tissue. I would optimize as best we could before he undergoes any invasive procedure as currently he is to high risk for precipitating respiratory failure. At some point, he will also need a formal sleep study repeated as his initial diagnostic study is more than a year old and cannot be used for pressure therapy institution. This will all need to be done as an outpatient. He was applauded for his successful smoking cessation. Ulcer and deep vein thrombosis (DVT) prophylaxis are in place. I have spoken at length with the primary care service in that regard. He will be followed while he is here in the hospital. Further recommendations will be made in the progress record as new information becomes available. LIZZY
--- NOTE | 2019-11-18 12:47 | IPNPDOC ---
Date Seen The patient was seen on 11/18/19. Progress Note SUBJECTIVE: Patient was seen and examined this morning. He has remained fairly hypoxic overnight and has required 10L of supplemental oxygen. He states that he feels his shortness of breath has not worsened much since yesterday and has stayed about the same. There have been no adverse events reported overnight. He has worked with physical therapy and was noted to have continued desaturations. OBJECTIVE PHYSICAL EXAMINATION: VITAL SIGNS: Please see below. GENERAL: Patient is awake, alert, and oriented. He is morbidly obese. He does not appear to be in acute distress. He is sitting in chair in room HEENT: Atraumatic, normocephalic. Eyes are nonicteric. Trachea is midline CARDIOVASCULAR: Normal S1, S2. Regular rate and rhythm. No clicks, rubs, or murmurs RESPIRATORY: Continued fine crackles in the bases otherwise clear vesicular breath sounds bilaterally. No wheezes or rhonchi. No accessory muscle use ABDOMINAL: Morbidly obese. Soft, nondistended. Nontender. No rebound tenderness or guarding. Normoactive bowel sounds throughout EXTREMITIES: No edema. No rashes or lesions. Full and equal pulses in bilateral upper and lower extremities NEUROLOGICAL: No focal neurological deficits PSYCHOLOGICAL: Mood and affect appear appropriate LABORATORY DATA, IMAGING STUDIES, MICROBIOLOGY: Please see below. Echocardiogram: Pending DVT prophylaxis ordered?: Heparin SQ ASSESSMENT AND PLAN: Patient is a 39 year old male who presented to the [facility] ER with complaint of shortness of breath. He has been evaluated in October at [facility] and found to have retroperitoneal, mediastinal, and hilar lymphadenopathy. He had initially improved however since discharge he has progressively gotten more short of breath. In the ER the patient was found to be hypoxic. The patient has been started on IV methylprednisone. He has had continued hypoxia overnight . PROBLEMS: 1. Acute Hypoxemic Respiratory Failure secondary to diffuse Interstitial Lung Disease vs virus pneumonia Our differential diagnosis includes: Sarcoidosis, acute interstitial pneumonia, eosinophilic pneumonia, nonspecific interstitial pneumonia, cryptogenic pneumonia -Patient has had CTA completed which demonstrated diffuse bilateral infiltrates and extensive mediastinal and hilar adenopathy. There is additional adenopathy seen in the upper abdomen. Additionally the patient has multiple liver nodules -Records obtained from [facility] hospitalization. Patient had abdominal CT for abdominal pain which demonstrated adenopathy. Additionally, the patient had hypodense liver nodule. -Pulmonary Medicine has been consulted. Patient has been seen and examined by Pulmonary medicine with recommendations for Methylprednisolone 80mg q8H IV and empiric antibiotics. Recommendations appreciated -Continue IV Rocephin and PO Doxycycline -Respiratory orders for O2 Sats 88-92% -ABG demonstrating hypoxemia. Normal pH and compensated CO2 -Will continue patient on IV steroids and empiric antibiotics. Patient will need biopsy of lymph node to discern definitive diagnosis of Sarcoid vs lymphoma. Patient may achieve higher diagnostic yield from mediastinoscopy with biopsy over bronchoscopy with EBUS. Patient is currently requiring high levels of supplemental oxygen. Pending clinical improvement may consider consulting Thoracic surgery for mediastinoscopy and biopsy 2. Transaminitis and Liver Nodules on CTA -Patient has mildly elevated AST and elevated Alk Phos on presentation. This may be consistent with Fatty liver disease. -CTA demonstrated liver nodules. This was also mentioned on patients CT of the abdomen from [facility]. This is of unknown etiology. Could consider a CT of the abdomen with contrast although this was recently completed. -Will obtain AFP. Patient may warrant biopsy of his liver nodule in the future 3. Allergic Asthma -Will continue patients Symbicort and Montelukast -Xopenex Nebulizer Q4h as needed for shortness of breath - We'll check patient for aspergillosis 4. Obstructive Sleep Apnea/Pickwickian Syndrome -Patient is morbidly obese. He has been told he has ANCA. Likely has component of obesity hypoventilation syndrome given his weight. -Patient will need formal sleep study at discharge - Echo ordered to rule out pulmonary hypertension 5. Hypertension -Will continue Lisinopril 6. Chronic Pain -Continue patients Cymbalta 7. GERD -Will continue Omeprazole 8. DVT prophylaxis -Will continue Heparin SQ VS, I&O, 24H, Fishbone Vital Signs/I&O Vital Signs Date Time Temp Pulse Resp B/P (MAP) Pulse Ox O2 Delivery O2 Flow Rate FiO2 11/18/19 08:40 126/64 11/18/19 08:00 97.7 107 22 90 Nasal Cannula 6.0 I&O- Last 24 Hours up to 6 AM 11/18/19 06:00 Intake Total 950 ml Output Total 1178 ml Balance -228 ml Laboratory Data 24H LABS Laboratory Tests 2 11/17/19 13:11: Immature Granulocyte % (Auto) 4.0H, Neutrophils (%) (Auto) 71.1H, Lymphocytes (%) (Auto) 10.2L, Monocytes (%) (Auto) 7.4H, Eosinophils (%) (Auto) 6.3H, Basophils (%) (Auto) 1.0, Neutrophils # (Auto) 9.3H, Lymphocytes # (Auto) 1.3L, Monocytes # (Auto) 1.0H, Eosinophils # (Auto) 0.8H, Basophils # (Auto) 0.1, Nucleated Red Blood Cells % (auto) 0.2H, Prothrombin Time 15.9H, Prothromb Time International Ratio 1.30, Activated Partial Thromboplast Time 26.7, Blood Gas Bicarbonate Standard 22.1, Arterial Blood pH 7.441, Arterial Blood Partial Pressure CO2 30.4L, Arterial Blood Partial Pressure O2 65.9L, Arterial Blood Total CO2 21.2L, Arterial Blood HCO3 20.2L, Arterial Blood Base Excess -2.7L, Arterial Blood Oxygen Saturation 92.1L, Anion Gap 8, Glomerular Filtration Rate > 60.0, Calcium Level 8.9, Total Bilirubin 0.5, Direct Bilirubin 0.1, Aspartate Amino Transf (AST/SGOT) 44H, Alanine Aminotransferase (ALT/SGPT) 49, Alkaline Phosphatase 152H, Total Creatine Kinase 342H, Creatine Kinase MB 1.1, Creatine Kinase MB Relative Index 0.32, Troponin I < 0.02, VV-Ehp-I-Type Natriuretic Peptide 478H, Total Protein 6.2L, Albumin 2.7L, Albumin/Globulin Ratio 0.77L, Thyroid Stimulating Hormone (TSH) 2.540, Free Thyroxine 1.43 11/17/19 13:16: Lactic Acid Level 3.5*H 11/17/19 18:20: Blood Gas Bicarbonate Standard 24.0, Arterial Blood pH 7.467H, Arterial Blood Partial Pressure CO2 31.5L, Arterial Blood Partial Pressure O2 57.4L, Arterial Blood Total CO2 23.2, Arterial Blood HCO3 22.3, Arterial Blood Base Excess -0.4, Arterial Blood Oxygen Saturation 90.3L 11/17/19 18:51: Lactic Acid Followup at 4 Hours 2.7*H, Rheumatoid Factor < 10.0 11/18/19 04:41: Nucleated Red Blood Cells % (auto) 0.1H, Anion Gap 11, Glomerular Filtration Rate > 60.0, Calcium Level 8.8, Magnesium Level 2.1 11/18/19 11:44: CBC/BMP Laboratory Tests 11/17/19 13:11 11/18/19 04:41 Microbiology Microbiology 11/17/19 Blood Culture, Received Pending 11/17/19 Blood Culture, Received Pending 11/17/19 Respiratory Virus Panel (PCR) ([facility]) - Final, Complete KYM BHATIA DO Nov 18, 2019 12:47
[2019-11-19] VITALS (23 sets, daily range): BP systolic 132–165; BP diastolic 71–88; O2SAT 84–94
[2019-11-19] MEDS: COMBIVENT RESPIMAT 100-20MCG INHALER 4GM INH SCH ×4 (01:47→19:41)
[2019-11-19] MEDS: methylPREDNISolone INJ 125 MG/2 ML VIAL (J2930) IV SCH ×3 (04:36→21:35)
[2019-11-19] MEDS: SLF 3 ML SYR IV SCH ×3 (04:36→21:36)
[2019-11-19 06:13] LABS: HEMATOCRIT 44.2 % (42.0-52.0); HEMOGLOBIN 13.9 g/dl (13.5-17.5); MEAN CORPUSCULAR HEMOGLOBIN 25.7 pg (27.0-33.0); MEAN CORPUSCULAR HGB CONC 31.4 g/dl (32.0-36.5); MEAN CORPUSCULAR VOLUME 81.9 fl (80.0-96.0); PLATELET COUNT, AUTOMATED 134 10^3/uL (150-450); WHITE BLOOD COUNT 19.5 10^3/uL (4.0-10.0)
[2019-11-19 06:34] LABS: BLOOD UREA NITROGEN 22 MG/DL (7-18); CARBON DIOXIDE LEVEL 23 MEQ/L (21-32); CHLORIDE LEVEL 103 MEQ/L (98-107); CREATININE FOR GFR 1.16 MG/DL (0.70-1.30); GLOMERULAR FILTRATION RATE > 60.0 (>60); GLUCOSE, FASTING 251 MG/DL (70-100); POTASSIUM SERUM 4.4 MEQ/L (3.5-5.1); SODIUM LEVEL 134 MEQ/L (136-145)
[2019-11-19] MEDS ORDERED: GLUCAGON FOR INJ 1 MG VIAL (J1610) SC PRN (07:00)
[2019-11-19] MEDS ORDERED: GLUCOSE 4 GM CHEW TABLET PO PRN (07:00)
[2019-11-19] MEDS ORDERED: DEXTROSE 50% 50 ML SYRINGE IV PRN (07:00)
[2019-11-19] MEDS: HumaLOG INSULIN (NovoLOG) PER UNIT SC SCH ×4 (07:30→21:35)
[2019-11-19] MEDS: lisinopriL 10 MG TAB PO SCH (08:18)
[2019-11-19] MEDS: OMEPRAZOLE 20 MG CAP PO SCH (08:18)
[2019-11-19] MEDS: MELOXICAM (MOBIC) 7.5 MG TAB PO SCH (08:18)
[2019-11-19] MEDS: DOXYCYCLINE HYCLATE 100 MG TAB PO SCH ×2 (08:18→21:35)
[2019-11-19] MEDS: MONTELUKAST 10 MG TAB PO SCH (08:19)
[2019-11-19] MEDS: HEPARIN SOD (PORCINE) 5000 UNITS/ML VIAL (J1644 PER 1000UNITS) SC SCH ×2 (08:19→21:35)
[2019-11-19] MEDS: DULoxetine 30 MG CAP (CYMBALTA) PO SCH (08:19)
--- NOTE | 2019-11-19 09:44 | IPN ---
DATE: 11/19/2019 I again attended Noah Mireles here in the progressive care unit. The patient has been examined and his chart is reviewed. I spoke with Dr. Ball regarding him this morning. He is less tachypneic today. He was able to ambulate. He still requires 6 liters at times. T-max overnight 96.8, blood pressure 130s to 160s, heart rate generally 80s to 90s with a sinus mechanism, respiratory rate 18 to 22 without accessory muscle use. Intake and output from midnight to midnight 2150 mL in with 920 mL out. White blood cell count 19.5, hemoglobin 13.9, platelet count 134,000, sodium 134, potassium 4.4, chloride 103, CO2 23, BUN 22, creatinine 1.16, glucose 251, rheumatoid factor less than 10. Serology is still pending. On exam, he is awake, alert and appropriate. He is comfortable lying in bed. Pupils reactive. Sclera clear. Trachea is in the midline. CHEST: Shows diminished but symmetric expansion. There are persistent basilar crackles. No rhonchi, wheezes or rubs. CARDIAC EXAM: Distant but generally regular. Peripheral pulses palpable. Edema is unchanged. ABDOMEN: Morbidly obese, soft with active bowel sounds. No convincing organomegaly or masses, although body habitus makes exam difficult. EXTREMITIES: Show his chronic venous stasis changes. NEUROLOGIC: He is awake, alert and appropriate. PSYCH: Normal mood and affect. IMPRESSION: 1. Hypoxemic respiratory failure, multifactorial. 2. Obstructive sleep apnea syndrome currently not on pressure therapy. 3. Abnormal CT scan with hilar, mediastinal and retroperitoneal adenopathy. 4. Interstitial findings. At this point, I still believe this most likely represents underlying sarcoid. Certainly cytologic diagnosis would be preferable, but currently he is in no shape to undergo general anesthesia. Certainly, if we are able to get a CT guided needle biopsy to obtain adequate tissue from some his retroperitoneal nodes, he certainly can tolerate that, in my opinion. I discussed with him the need to get him CPAP for home, but we will need to start over as his home sleep test was at least 3 years and we are unable to obtain that information. He conveys complete understanding. I would empirically try to gently diurese him. I defer that to the primary service. At this point, we will proceed as outlined above. Further recommendations will be made in the progress records as new information becomes available.
[2019-11-19] MEDS: SYMBICORT 80/4.5MCG INHALER 6GM INH SCH ×2 (09:45→19:41)
[2019-11-19 09:55] LABS: HEMOGLOBIN A1c 8.8 %
[2019-11-19] MEDS: cefTRIAXone SOD 2 GM in D5W MINI-BAG PLUS 50 ML IV SCH (10:13)
--- NOTE | 2019-11-19 11:26 | IPNPDOC ---
Date Seen The patient was seen on 11/19/19. Progress Note SUBJECTIVE: Patient was seen and examined this morning. There have been no adverse events reported overnight. He has continued to require 6L of supplemental oxygen. The patient does report that he feels like his breathing has improved. OBJECTIVE PHYSICAL EXAMINATION: VITAL SIGNS: Please see below. GENERAL: Awake, alert, and oriented. Appears in no acute distress. Lying comfortably in bed HEENT: Atraumtic, normocephalic. Eyes are nonicteric. Trachea is midline. Neck is asencio CARDIOVASCULAR: Normal S1, S2. Regular rate and rhythm. No clicks, rubs, or murmurs RESPIRATORY: Bilateral fine crackles in the bases. No wheezes or rhonchi. Symmetric chest expansion. No accessory muscle use ABDOMINAL: Morbidly obese. Nondistended. Nontender. No rebound tenderness or guarding. Normoactive bowel sounds throughout EXTREMITIES: No edema. Full and equal pulses in bilateral upper and lower extrem ities NEUROLOGICAL: No focal neurological deficits PSYCHOLOGICAL: Mood and affect appear appropriate LABORATORY DATA, IMAGING STUDIES, MICROBIOLOGY: Please see below. Echocardiogram: Pending DVT prophylaxis ordered?: Heparin SQ ASSESSMENT AND PLAN: Patient is a 39 year old male who presented to the [facility] ER with complaint of shortness of breath. He has been evaluated in October at [facility] and found to have retroperitoneal, mediastinal, and hilar lymphadenopathy. He had initially improved however since discharge he has progressively gotten more short of breath. In the ER the patient was found to be hypoxic. The patient has been started on IV methylprednisone. He has had continued hypoxia overnight PROBLEMS: 1. Acute Hypoxemic Respiratory Failure secondary to diffuse Interstitial Lung Disease vs virus pneumonia Our differential diagnosis includes: Sarcoidosis, acute interstitial pneumonia, eosinophilic pneumonia, nonspecific interstitial pneumonia, cryptogenic pneumonia -Patient has had CTA completed which demonstrated diffuse bilateral infiltrates and extensive mediastinal and hilar adenopathy. There is additional adenopathy seen in the upper abdomen. Additionally the patient has multiple liver nodules -Records obtained from [facility] hospitalization. Patient had abdominal CT for abdominal pain which demonstrated adenopathy. Additionally, the patient had hypodense liver nodule. -Pulmonary Medicine has been consulted. Patient has been seen and examined by Pulmonary medicine with recommendations for Methylprednisolone 80mg q8H IV and empiric antibiotics. Recommendations appreciated -Will continue empiric antibiotics and steroids. Patient reports subjective improvement. He will need biopsy of his lymph nodes for a definitive diagnosis. Patient was noted to have retroperitoneal adenopathy in [facility]. Given patients current respiratory status and morbid obesity he may benefit from biopsy of his retroperitoneal lymph node via CT guided biopsy. 2. Transaminitis and Liver Nodules on CTA -AFP pending. Patient will need to follow-up outpatient for further evaluation of his liver nodule 3. Diabetes Mellitus Type 2 -Patient states that he is not a diabetic. Hemoglobin A1C obtained with value of 8.8 -Patient is on high dose steroids currently. Patient will be on sliding scale insulin. -Will likely need to be started on a diabetic medications outpatient 4. Allergic Asthma -Will continue Symbicort and montelukast -Xopenex Nebulizer Q4h as needed for shortness of breath -Aspergillus antigen pending 5. Obstructive Sleep Apnea/Pickwickian Syndrome -Patient is morbidly obese. Will need formal sleep study at discharge -Echo pending for Pulmonary artery pressure 6. Hypertension -Will continue Lisinopril 7. Chronic Pain -Patient is continued on Cymbalta IEduardo, have independently examined this patient and performed my own physical exam, as well as reviewed the documentation. I have discussed in detail with the resident / student the findings and plan of treatment as docum ented by the resident / student. I agree with their findings and treatment plan. I will continue to follow the patient during this hospital stay. VS, I&O, 24H, Fishbone Vital Signs/I&O Vital Signs Date Time Temp Pulse Resp B/P (MAP) Pulse Ox O2 Delivery O2 Flow Rate FiO2 11/19/19 08:18 135/82 11/19/19 08:00 6.0 11/19/19 08:00 96.8 98 20 93 Nasal Cannula I&O- Last 24 Hours up to 6 AM 11/19/19 06:00 Intake Total 1440 ml Output Total 950 ml Balance 490 ml Laboratory Data 24H LABS Laboratory Tests 2 11/18/19 11:44: 11/19/19 05:40: Estimated Mean Plasma Glucose 206H, Hemoglobin A1c 8.8 11/19/19 05:43: Nucleated Red Blood Cells % (auto) 0.0, Anion Gap 8, Glomerular Filtration Rate > 60.0, Calcium Level 9.0 CBC/BMP Laboratory Tests 11/19/19 05:43 Microbiology Microbiology 11/17/19 Blood Culture - Preliminary, Resulted No growth after 24 hours . All specim... 11/17/19 Blood Culture - Preliminary, Resulted No growth after 24 hours . All specim... 11/17/19 Respiratory Virus Panel (PCR) ([facility]) - Final, Complete KYM BHATIA DO Nov 19, 2019 11:26 EDUARDO EDUARDO Nov 20, 2019 07:41
[2019-11-19] MEDS: FUROSEMIDE 20 MG/2 ML VIAL (J1940) IV SCH ×2 (11:57→17:48)
[2019-11-19] MEDS ORDERED: LIDOCAINE 1% MDV 20ML VIAL As Ordered ONE (14:10)
--- NOTE | 2019-11-19 17:45 | REP ---
CT-GUIDED LEFT RETROPERITONEAL LYMPH NODE BIOPSY The procedure was performed under the direct supervision of Dr. Khan. Patient has a history of retroperitoneal lymphadenopathy seen on a previous CT scan from [facility] performed on the 10/21/2019. The risks and benefits of the procedure were explained to the patient and informed consent was obtained. The left retroperitoneal lymph node was localized using CT guidance. The skin was prepped and draped in a sterile fashion. 1% lidocaine was used as a local anesthetic. Using CT guidance a 19/20 gauge coaxial needle biopsy system was inserted and advanced into the lymph node. Eight core biopsy samples were obtained and sent to lab. The patient tolerated the procedure well and there were no immediate complications. After the appropriate amount of monitored convalescence the patient was discharged from the department. Electronically Signed by DUTCH Goodman 11/19/2019 04:05 P Electronically Signed by Keo Khan MD 11/19/2019 05:36 P
[2019-11-20] VITALS (19 sets, daily range): BP systolic 144–168; BP diastolic 80–94; O2SAT 89–97
[2019-11-20] MEDS: COMBIVENT RESPIMAT 100-20MCG INHALER 4GM INH SCH ×4 (01:57→20:00)
[2019-11-20] MEDS: SLF 3 ML SYR IV SCH ×3 (04:58→21:20)
[2019-11-20] MEDS: methylPREDNISolone INJ 125 MG/2 ML VIAL (J2930) IV SCH ×3 (04:58→21:19)
[2019-11-20 08:13] LABS: HEMOGLOBIN 14.7 g/dl (13.5-17.5); MEAN CORPUSCULAR HEMOGLOBIN 25.9 pg (27.0-33.0); PLATELET COUNT, AUTOMATED 116 10^3/uL (150-450); RED BLOOD COUNT 5.68 10^6/uL (4.30-6.10)
[2019-11-20 08:44] LABS: BLOOD UREA NITROGEN 30 MG/DL (7-18); CARBON DIOXIDE LEVEL 26 MEQ/L (21-32); CHLORIDE LEVEL 101 MEQ/L (98-107); CREATININE FOR GFR 1.33 MG/DL (0.70-1.30); GLOMERULAR FILTRATION RATE > 60.0 (>60); GLUCOSE, FASTING 218 MG/DL (70-100); POTASSIUM SERUM 4.6 MEQ/L (3.5-5.1); SODIUM LEVEL 137 MEQ/L (136-145)
[2019-11-20] MEDS: FUROSEMIDE 20 MG/2 ML VIAL (J1940) IV SCH (09:00)
[2019-11-20] MEDS: HEPARIN SOD (PORCINE) 5000 UNITS/ML VIAL (J1644 PER 1000UNITS) SC SCH ×2 (09:06→21:19)
[2019-11-20] MEDS: DULoxetine 30 MG CAP (CYMBALTA) PO SCH (09:06)
[2019-11-20] MEDS: HumaLOG INSULIN (NovoLOG) PER UNIT SC SCH ×4 (09:06→21:19)
[2019-11-20] MEDS: MONTELUKAST 10 MG TAB PO SCH (09:06)
[2019-11-20] MEDS: MELOXICAM (MOBIC) 7.5 MG TAB PO SCH (09:07)
[2019-11-20] MEDS: lisinopriL 10 MG TAB PO SCH (09:07)
[2019-11-20] MEDS: OMEPRAZOLE 20 MG CAP PO SCH (09:08)
[2019-11-20] MEDS: DOXYCYCLINE HYCLATE 100 MG TAB PO SCH ×2 (09:08→21:20)
[2019-11-20] MEDS: traMADol 50 MG TAB PO PRN ×2 (09:16→21:20)
[2019-11-20] MEDS: SYMBICORT 80/4.5MCG INHALER 6GM INH SCH ×2 (09:30→20:06)
[2019-11-20] MEDS: cefTRIAXone SOD 2 GM in D5W MINI-BAG PLUS 50 ML IV SCH (10:47)
--- NOTE | 2019-11-20 11:21 | IPNPDOC ---
Date Seen The patient was seen on 11/20/19. Progress Note SUBJECTIVE: Patient was seen and examined this morning. He had a CT guided biopsy of his retroperitoneal lymph node yesterday. He had tolerated the procedure well but has noted some pain around the biopsy site. He currently denies any worsening shortness of breath. He states that he feels like he is improving overall OBJECTIVE PHYSICAL EXAMINATION: VITAL SIGNS: Please see below. GENERAL: Awake, alert, and oriented. Appears in no acute distress. Lying comfortably in bed HEENT: Atraumtic, normocephalic. Eyes are nonicteric. Trachea is midline. Neck is asencio CARDIOVASCULAR: Normal S1, S2. Regular rate and rhythm. No clicks, rubs, or murmurs RESPIRATORY: Bilateral fine crackles in the bases. No wheezes or rhonchi. Symmetric chest expansion. No accessory muscle use ABDOMINAL: Morbidly obese. Nondistended. Nontender. No rebound tenderness or guarding. Normoactive bowel sounds throughout MUSCULOSKELETAL: Tenderness of patients left back. No erythema or swelling EXTREMITIES: No edema. Full and equal pulses in bilateral upper and lower extremities NEUROLOGICAL: No focal neurological deficits PSYCHOLOGICAL: Mood and affect appear appropriate LABORATORY DATA, IMAGING STUDIES, MICROBIOLOGY: Please see below. DVT prophylaxis ordered?: Heparin SQ ASSESSMENT AND PLAN: Patient is a 39 year old male who presented to the [facility] ER with complaint of shortness of breath. He has been evaluated in October at [facility] and found to have retroperitoneal, mediastinal, and hilar lymphadeno gilbert. He had initially improved however since discharge he has progressively gotten more short of breath. In the ER the patient was found to be hypoxic. The patient has been started on IV methylprednisone. He has had continued hypoxia overnight. He had a left retroperitoneal lymph node biopsy yesterday without complication PROBLEMS: 1. Acute Hypoxemic Respiratory Failure secondary to diffuse Interstitial Lung Disease vs virus pneumonia -Patient has continued hypoxia although he is now requiring 5L rather than 6L. He subjectively denies worsening shortness of breath. Patient is followed by Pulmonary Medicine with presumed diagnosis of Sarcoidosis. CT guided biopsy of the retroperitoneal lymph node was completed yesterday. Pathology is currently pending -Will continue on IV steroids. Will continue empiric antibiotics for possible coinciding community acquired pneumonia 2. Transaminitis and Liver Nodules on CTA -AFP pending. Patient will need to follow-up outpatient for further evaluation of his liver nodule 3. Diabetes Mellitus Type 2 -Patient states that he is not a diabetic. Hemoglobin A1C obtained with value of 8.8 -Patient is on high dose steroids currently. Patient will be on sliding scale insulin. -Will likely need to be started on a diabetic medications outpatient 4. Allergic Asthma -Will continue Symbicort and montelukast -Xopenex Nebulizer Q4h as needed for shortness of breath -Aspergillus antigen pending 5. Obstructive Sleep Apnea/Pickwickian Syndrome -Patient is morbidly obese. Will need formal sleep study at discharge -Echo pending for Pulmonary artery pressure 6. Hypertension -Will continue Lisinopril 7. Chronic Pain -Patient is continued on Cymbalta DISPOSITION: Patient is currently requiring high level of supplemental oxygen. Currently pending biopsy results. Patients disposition is pending clinical improvement on oxygen requirements VS, I&O, 24H, Fishbone Vital Signs/I&O Vital Signs Date Time Temp Pulse Resp B/P (MAP) Pulse Ox O2 Delivery O2 Flow Rate FiO2 11/20/19 09:46 20 92 High Flow Cannula 5.0 11/20/19 09:07 160/90 11/20/19 08:00 98.0 100 I&O- Last 24 Hours up to 6 AM 11/20/19 06:00 Intake Total 1900 ml Output Total 1450 ml Balance 450 ml Laboratory Data 24H LABS Laboratory Tests 2 11/19/19 11:34: Bedside Glucose (Misc Panel) 282H 11/19/19 17:13: Bedside Glucose (Misc Panel) 218H 11/19/19 21:26: Bedside Glucose (Misc Panel) 262H 11/20/19 07:27: Bedside Glucose (Misc Panel) 220H 11/20/19 07:57: Nucleated Red Blood Cells % (auto) 0.1H, Anion Gap 10, Glomerular Filtration Rate > 60.0, Calcium Level 9.0 CBC/BMP Laboratory Tests 11/20/19 07:57 Microbiology Microbiology 11/17/19 Blood Culture - Preliminary, Resulted No Growth after 48 hours. All Specime... 11/17/19 Blood Culture - Preliminary, Resulted No Growth after 48 hours. All Specime... 11/17/19 Respiratory Virus Panel (PCR) ([facility]) - Final, Complete KYM BHATIA DO Nov 20, 2019 11:21
--- NOTE | 2019-11-20 11:22 | IPN ---
DATE: 11/20/2019 The patient is seen in his hospital room, this is hospital day #3. He underwent needle biopsy through his left flank yesterday afternoon, tolerated the procedure well. His oxygen requirement is now down to 5 liters. Vital signs are temperature 98, pulse rate 100, respirations 16, blood pressure 100/90. Oxygen saturation 92% on 5 liters nasal cannula. Input and output for the past 24 hours 2140 and 1050 out. At bedside he is in no acute distress. He is able to be up and out of bed without discomfort. His oral and nasal mucosa are pink. Neck is supple. Heart sounds are regular. Breath sounds are diminished but clear and coarse. Abdomen is soft and obese. Extremities show no significant edema. DIAGNOSTIC STUDIES Sodium is 134, potassium 4.4, chloride 103, CO2 29, BUN 22, creatinine 1.1, glucose is 251, white cell count is down to 17, hemoglobin 14.7, hematocrit 46, platelet count 116. He had some eosinophils on admission. On review of his previous lab studies and RON level 11/04/2019 was less than 5. Arterial blood gas on the showed pH 7.46, pCO2 31, pO2 57. CT scan shows bilateral infiltrates, multiple nodes. The pathology report from yesterday is pending. Blood cultures are negative times two, and viral studies were negative. On review of his medications, this is day 3 of ceftriaxone, doxycycline. He is receiving Solu-Medrol 80 mg q.8 hours as presumptive therapy for sarcoidosis. He is receiving Symbicort and Combivent and Xopenex nebulized therapy. IMPRESSION: 1. Diffuse adenopathy with patchy infiltrates, suspect sarcoidosis versus lymphoma with a possible superimposed infection and secondary hypoxemia. He is responding to steroids and antibiotics. His oxygen requirement is down. A nocturnal oximetry last night showed some variability late in the study but saturations were acceptable. He will need an outpatient sleep study. Further workup and treatment will be pending the results of the pathology.
[2019-11-20] MEDS ORDERED: IBUPROFEN 400 MG TAB PO ONE (23:00)
[2019-11-21] VITALS (9 sets, daily range): BP systolic 142–164; BP diastolic 62–92; O2SAT 90–95
[2019-11-21 01:10] LABS: CK-MB VALUE MASS 1.3 NG/ML (<3.6); MB/CK RELATIVE INDEX 0.53 (< OR =4)
[2019-11-21] MEDS: COMBIVENT RESPIMAT 100-20MCG INHALER 4GM INH SCH ×4 (01:50→20:00)
[2019-11-21] MEDS ORDERED: traMADol 50 MG TAB PO ONE (03:30)
[2019-11-21] MEDS: SLF 3 ML SYR IV SCH ×3 (05:28→21:03)
[2019-11-21] MEDS: methylPREDNISolone INJ 125 MG/2 ML VIAL (J2930) IV SCH ×3 (05:28→21:03)
[2019-11-21 05:37] LABS: HEMATOCRIT 45.8 % (42.0-52.0); MEAN CORPUSCULAR HEMOGLOBIN 26.2 pg (27.0-33.0); MEAN CORPUSCULAR HGB CONC 32.8 g/dl (32.0-36.5); MEAN CORPUSCULAR VOLUME 80.1 fl (80.0-96.0); RED BLOOD COUNT 5.72 10^6/uL (4.30-6.10); WHITE BLOOD COUNT 14.5 10^3/uL (4.0-10.0)
[2019-11-21 05:40] LABS: PLATELET COUNT, AUTOMATED 93 10^3/uL (150-450)
[2019-11-21 06:05] LABS: BLOOD UREA NITROGEN 33 MG/DL (7-18); CALCIUM LEVEL 8.3 MG/DL (8.5-10.1); CARBON DIOXIDE LEVEL 22 MEQ/L (21-32); CHLORIDE LEVEL 102 MEQ/L (98-107); CREATININE FOR GFR 1.13 MG/DL (0.70-1.30); GLOMERULAR FILTRATION RATE > 60.0 (>60); GLUCOSE, FASTING 238 MG/DL (70-100); POTASSIUM SERUM 4.4 MEQ/L (3.5-5.1); SODIUM LEVEL 134 MEQ/L (136-145)
[2019-11-21] MEDS: HumaLOG INSULIN (NovoLOG) PER UNIT SC SCH ×4 (07:30→21:00)
[2019-11-21] MEDS: SYMBICORT 80/4.5MCG INHALER 6GM INH SCH ×2 (08:00→20:42)
[2019-11-21] MEDS: DULoxetine 30 MG CAP (CYMBALTA) PO SCH (08:50)
[2019-11-21] MEDS: MELOXICAM (MOBIC) 7.5 MG TAB PO SCH (08:50)
[2019-11-21] MEDS: lisinopriL 10 MG TAB PO SCH (08:50)
[2019-11-21] MEDS: DOXYCYCLINE HYCLATE 100 MG TAB PO SCH ×2 (08:51→21:02)
[2019-11-21] MEDS: HEPARIN SOD (PORCINE) 5000 UNITS/ML VIAL (J1644 PER 1000UNITS) SC SCH (08:51)
[2019-11-21] MEDS: OMEPRAZOLE 20 MG CAP PO SCH (08:51)
[2019-11-21] MEDS: MONTELUKAST 10 MG TAB PO SCH (08:51)
--- NOTE | 2019-11-21 08:56 | ECHO ---
DATE OF PROCEDURE: 11/18/2019 REFERRING PROVIDER: Dr. Eduardo Ball PATIENT LOCATION: Room 3219 REASON FOR STUDY: Shortness of breath. 2D MEASUREMENTS: IVS: 1.0 cm LV: 2.6 cm LVPW: 1.0 cm LA: 3.7 cm Aorta: 2.8 cm DOPPLER MEASUREMENTS: Peak velocity across the aortic valve: 1.5 meters per second Peak velocity across the LVOT: 1.2 meters per second Peak gradient across the aortic valve: 9.0 mmHg Mean gradient across the aortic valve: 6.0 mmHg Mitral E: 0.78, Mitral A: 0.94 with a ratio of 0.8 2D COMMENTS: 1. Technically limited study due to poor acoustic window secondary to body habitus. 2. The left ventricular size is normal as well as left ventricular wall thickness. The estimated global left ventricular systolic ejection fraction is 60-65%. 3. Normal left atrium. Normal right atrium and right ventricle noted in limited views, they were not well visualized. 4. The atrial septum was not well visualized but appeared to be normal. 5. Normal aortic root. 6. A small pericardial effusion was noted, no evidence of cardiac tamponade. 7. Mildly calcified aortic valve with normal leaflet excursion. Normal mitral valve and tricuspid valve. The pulmonic valve appeared to be normal. The proximal pulmonary artery branches were not well visualized. 8. The inferior vena cava was not visualized. DOPPLER: It detects mild aortic regurgitation. Abnormal relaxation pattern was noted across the mitral valve leaflets as well as the mitral valve annulus consistent with features of grade 1 left ventricular diastolic dysfunction. IMPRESSION: 1. Normal global left ventricular systolic function. There are some features of left ventricular diastolic dysfunction manifested by abnormal relaxation. 2. Aortic valve sclerosis with mild aortic regurgitation and trivial aortic stenosis. 3. A small pericardial effusion was noted, no evidence of cardiac tamponade. 4. The right heart chambers were not well visualized. 5. The inferior vena cava was not visualized. [facility]
[2019-11-21] MEDS: GASTROGRAFIN SOLUTION 30ML PO SCH ×2 (10:09→10:41)
--- NOTE | 2019-11-21 10:09 | NOCOX ---
DATE OF STUDY: Nocturnal recording oximetry was performed on 6 liters of oxygen via nasal cannula. Baseline saturation was 92%. Lowest oxygen saturation 82%. There was minimal patterning late in the study. IMPRESSION: Borderline nocturnal recording oximetry with one minimal episode of variable desaturation to 82% late in the test.
[2019-11-21] MEDS: cefTRIAXone SOD 2 GM in D5W MINI-BAG PLUS 50 ML IV SCH (10:10)
--- NOTE | 2019-11-21 11:01 | IPNPDOC ---
Date Seen The patient was seen on 11/21/19. Progress Note SUBJECTIVE: Patient was seen and examined this morning. He denies any increased shortness of breath. There have been no adverse events reported overnight. He is currently on 3L of supplemental oxygen. Pathology from retroperitoneal lymph node biopsy demonstrated malignancy OBJECTIVE PHYSICAL EXAMINATION: VITAL SIGNS: Please see below. GENERAL: Awake, alert,and oriented. Appears in no acute distress. Sitting up comfortably in bed HEENT: Atraumatic, normocephalic. Trachea is midline. CARDIOVASCULAR: Normal S1, S2. Regular rate and rhythm. No clicks rubs or murmurs RESPIRATORY: Clear vesicular breath sounds bilaterally with mild bibasilar crackles. No wheezes, rhonchi, or rales. Good respiratory effort. Symmetric chest expansion ABDOMINAL: Morbidly obese. Soft, nondistended. Nontender. Normoactive Bowel sounds GENITOURINARY EXAM: Both testicles are without masses. No tenderness. No swelling. No varicocele EXTREMITIES: No edema. Full and equal pulses in bilateral upper and lower extremities NEUROLOGICAL: No focal neurological deficits PSYCHOLOGICAL: Mood and affect appears appropriate LABORATORY DATA, IMAGING STUDIES, MICROBIOLOGY: Please see below. DVT prophylaxis ordered?: Lovenox ASSESSMENT AND PLAN: Patient is a 39 year old male who presented to the [facility] ER with complaint of shortness of breath. He has been evaluated in October at [facility] and found to have retroperitoneal, mediastinal, and hilar lymphadenopathy. He had initially improved however since discharge he has progressively gotten more short of breath. In the ER the patient was found to be hypoxic. The patient has been started on IV methylprednisone. He has had continued hypoxia overnight. He had a left retroperitoneal lymph node biopsy yesterday without complication. Pathology report today demonstrating positive for Malignancy PROBLEMS: 1. Acute Hypoxemic Respiratory Failure secondary to diffuse Interstitial Lung Disease vs virus pneumonia -Patients hypoxia is improving. He is currently only requiring 3L supplemental oxygen. He subjectively denies worsening shortness of breath. -Patient is continued on IV steroids and antibiotics with clinical improvement -Biopsy of retroperitoneal lymph node yesterday demonstrating Positive for Malignancy but negative for Lymphoma or Melanoma -Will get a repeat CT scan of the chest. Possible patient has a lung malignancy that was obscured by a pneumonia. -Pulmonary medicine is consulted. Consultation is appreciated 2. Malignancy of unknown primary site -Patient had a lymph node biopsy which was positive for malignancy. He was previously evaluated for lymphoma which was negative. Pathology was sent to [facility] for further immunohistochemical staining. -The primary site of malignancy is unknown at this point. He does have a hypodense liver nodule on CT which could be a liver metastasis or primary. Will obtain a CT of the abdomen and Pelvis and Chest with contrast -AFP tumor marker was not elevated -Will obtain additional tumor markers including CEA, CA-19-9, HCG, LDH -Will consult Hematology/Oncology when initial work-up is completed -Patient is s/p lymph node biopsy and has pain in biopsy site. He has been pl aced on Ultram 50 q8h 3. Diabetes Mellitus Type 2 -Patient states that he is not a diabetic. Hemoglobin A1C obtained with value of 8.8 -Patient is on high dose steroids currently. Patient will be on sliding scale insulin. -Will likely need to be started on a diabetic medications outpatient 4. Allergic Asthma -Will continue Symbicort and montelukast -Xopenex Nebulizer Q4h as needed for shortness of breath -Aspergillus antigen pending 5. Obstructive Sleep Apnea/Pickwickian Syndrome -Patient is morbidly obese. Will need formal sleep study at discharge -Echo pending for Pulmonary artery pressure 6. Hypertension -Will continue Lisinopril 7. Chronic Pain -Patient is continued on Cymbalta DISPOSITION: Will downgrade to med/surg status today. Patient is requiring less supplemental oxygen IShay, have independently examined this patient and performed my own physical exam, as well as reviewed the documentation. I have discussed in detail with the resident / student the findings and plan of treatment as documented by the resident / student. I agree with their findings and treatment plan. I will continue to follow the patient during this hospital stay. VS, I&O, 24H, Fishbone Vital Signs/I&O Vital Signs Date Time Temp Pulse Resp B/P (MAP) Pulse Ox O2 Delivery O2 Flow Rate FiO2 11/21/19 10:00 95 Nasal Cannula 3.0 11/21/19 08:50 164/82 11/21/19 08:00 97.0 101 20 I&O- Last 24 Hours up to 6 AM 11/21/19 05:59 Intake Total 1840 ml Output Total 775 ml Balance 1065 ml Laboratory Data 24H LABS Laboratory Tests 2 11/20/19 11:31: Bedside Glucose (Misc Panel) 253H 3/20/20 16:56: Bedside Glucose (Misc Panel) 215H 11/20/19 21:06: Bedside Glucose (Misc Panel) 306H 11/21/19 00:34: Total Creatine Kinase 245, Creatine Kinase MB 1.3, Creatine Kinase MB Relative Index 0.53 11/21/19 05:27: Nucleated Red Blood Cells % (auto) 0.0, Immature Platelet Fraction 7.2, Anion Gap 10, Glomerular Filtration Rate > 60.0, Calcium Level 8.3L CBC/BMP Laboratory Tests 11/21/19 05:27 Microbiology Microbiology 11/17/19 Blood Culture - Preliminary, Resulted No Growth after 72 hours. All specime... 11/17/19 Blood Culture - Preliminary, Resulted No Growth after 72 hours. All specime... 11/17/19 Respiratory Virus Panel (PCR) ([facility]) - Final, Complete KYM BHATIA DO Nov 21, 2019 11:01 SHAY EDUARDO DO Nov 22, 2019 12:36
[2019-11-21] MEDS: traMADol 50 MG TAB PO PRN ×2 (11:44→21:05)
[2019-11-21] MEDS ORDERED: ISOVUE-370 76% 100ML VIAL (Q9967) As Ordered ONE (11:53)
--- NOTE | 2019-11-21 11:54 | ECGEPIP ---
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 Decreased heart rate compared with 11/17/2019 at 1316 hrs. Electronically Signed on 11-21-2019 11:54:16 EDT by Cameron Youngblood
--- NOTE | 2019-11-21 12:26 | REP ---
Clinical: Malignancy. Technique: Axial contrast enhanced images from the thoracic inlet to the upper abdomen with coronal and sagittal re-formations using 100 ml Isovue 370 intravenous contrast material. Comparison: 11/17/2019. Findings: Lung alejo demonstrate diffuse bilateral reticulonodular interstitial disease along with scattered pulmonary nodules and ground-glass opacities most compatible with diffuse metastatic disease including lymphangitic carcinomatosis. No effusion. No pneumothorax. Tracheobronchial tree is patent. Extensive mediastinal and hilar adenopathy again noted including pretracheal lymph nodes up to 3.6 cm and large subcarinal lymph node measuring up to 6.0 cm maximal diameter. No cardiomegaly or pericardial effusion. Thoracic aorta and pulmonary vasculature appear grossly normal. Surrounding musculoskeletal structures are intact. Limited upper abdomen demonstrates diffuse hepatic metastases, and upper abdominal/retroperitoneal adenopathy. Impression: Findings consistent with malignancy/metastatic disease unchanged from prior examination. Electronically Signed by Kostas Orozco MD 11/21/2019 12:18 P
--- NOTE | 2019-11-21 12:38 | REP ---
Clinical: Malignancy. Technique: Axial contrast enhanced images from the lung bases to the pubic symphysis with coronal and sagittal re-formations using oral (per protocol) and 100 ml Isovue 370 intravenous contrast material. Comparison: Outside CT examination dated 10/21/2019. Findings: The liver demonstrates innumerable hypodense metastatic appearing lesions. Marked primarily upper abdominal and retroperitoneal adenopathy is appreciated with lymph nodes measuring up to approximately 3.5 cm diameter. Spleen, pancreas, right adrenal gland and bilateral kidneys appear relatively normal. 1.5 cm left adrenal nodule is nonspecific in appearance. No evidence for bowel obstruction or acute inflammatory process noted. Small fat containing umbilical hernia identified. Pelvis demonstrates collapsed normal bladder and age appropriate prostate/seminal vesicles. No ascites. No free air. Abdominal aorta and vasculature without aneurysm or dissection. Musculoskeletal structures without focal abnormality. Impression: 1. Diffuse hepatic metastatic lesions along with primarily upper abdominal and retroperitoneal adenopathy. Left para-aortic lymph nodes measuring up to 3.5 cm. Small nonspecific 1.5 cm left adrenal lesion. Electronically Signed by Kostas Orozco MD 11/21/2019 12:30 P
[2019-11-22] MEDS: COMBIVENT RESPIMAT 100-20MCG INHALER 4GM INH SCH ×4 (01:47→20:00)
[2019-11-22] MEDS ORDERED: PANTOPRAZOLE 40MG TAB (PROTONIX) PO ONE (05:45)
[2019-11-22 06:00] VITALS: BP 160/81
[2019-11-22] MEDS: methylPREDNISolone INJ 125 MG/2 ML VIAL (J2930) IV SCH ×3 (06:30→21:27)
[2019-11-22] MEDS: SLF 3 ML SYR IV SCH ×3 (06:35→21:28)
[2019-11-22 06:46] LABS: HEMATOCRIT 47.3 % (42.0-52.0); HEMOGLOBIN 15.3 g/dl (13.5-17.5); MEAN CORPUSCULAR HEMOGLOBIN 25.8 pg (27.0-33.0); MEAN CORPUSCULAR HGB CONC 32.3 g/dl (32.0-36.5); MEAN CORPUSCULAR VOLUME 79.9 fl (80.0-96.0); RED BLOOD COUNT 5.92 10^6/uL (4.30-6.10); WHITE BLOOD COUNT 15.2 10^3/uL (4.0-10.0)
[2019-11-22 06:49] LABS: PLATELET COUNT, AUTOMATED 72 10^3/uL (150-450)
[2019-11-22 06:54] LABS: BLOOD UREA NITROGEN 28 MG/DL (7-18); CALCIUM LEVEL 8.6 MG/DL (8.5-10.1); CARBON DIOXIDE LEVEL 24 MEQ/L (21-32); CHLORIDE LEVEL 100 MEQ/L (98-107); CREATININE FOR GFR 1.17 MG/DL (0.70-1.30); GLOMERULAR FILTRATION RATE > 60.0 (>60); GLUCOSE, FASTING 219 MG/DL (70-100); POTASSIUM SERUM 4.5 MEQ/L (3.5-5.1); SODIUM LEVEL 134 MEQ/L (136-145)
[2019-11-22] MEDS: SYMBICORT 80/4.5MCG INHALER 6GM INH SCH ×2 (07:41→21:41)
[2019-11-22 09:00] VITALS: O2SAT 92
[2019-11-22] MEDS ORDERED: PANTOPRAZOLE 40MG TAB (PROTONIX) PO SCH (09:00)
[2019-11-22] MEDS: HumaLOG INSULIN (NovoLOG) PER UNIT SC SCH ×4 (09:10→21:28)
[2019-11-22] MEDS: MONTELUKAST 10 MG TAB PO SCH (09:10)
[2019-11-22] MEDS: DULoxetine 30 MG CAP (CYMBALTA) PO SCH (09:11)
[2019-11-22] MEDS: lisinopriL 10 MG TAB PO SCH (09:13)
[2019-11-22] MEDS: DOXYCYCLINE HYCLATE 100 MG TAB PO SCH (09:13)
[2019-11-22] MEDS: HEPARIN SOD (PORCINE) 5000 UNITS/ML VIAL (J1644 PER 1000UNITS) SC SCH ×2 (09:14→21:27)
[2019-11-22] MEDS: MELOXICAM (MOBIC) 7.5 MG TAB PO SCH (10:14)
[2019-11-22] MEDS: traMADol 50 MG TAB PO PRN (10:46)
--- NOTE | 2019-11-22 12:35 | IPNPDOC ---
Text Note Date of Service The patient was seen on 11/22/19. NOTE Subjective: Patient continues to have shortness of breath. No any acute events overnight. Patient is afebrile Objective: VITAL SIGNS: Please see below. GENERAL APPEARANCE: Morbidly obese HEENT: Normocephalic, atraumatic. Mucous members moist and pink CARDIOVASCULAR: Regular rate and rhythm. No murmurs, rubs or gallops. Radial pulses are intact. There is no lower extremity edema LUNGS: Diminished lung sounds ABDOMEN: Abdomen is soft and nontender, obese MUSCULOSKELETAL: Range of motion is intact in all 4 extremities NEUROLOGICAL: Cranial nerves II-12 are grossly intact. Speech is not dysarthric Assessment and plan: Patient's 49 years old male with past history of morbid obesity, obstructive sleep apnea presented to the hospital with increased shortness of breath. Patient was found to have acute hypoxemic respiratory failure. Also patient was found to have lymphadenopathy. Pathology report from retroperitoneal lymph node was positive for malignancy. Await final report from pathology. Acute hypoxemic respiratory failure Differential diagnosis includes diffuse interstitial pulmonary diseases: Eosinophilic pneumonia, interstitial pneumonia, sarcoidosis Continue IV steroids After discussion with Dr. Light I stopped antibiotics. Patient afebrile, leukocytosis improved. Most likely leukocytosis was associated with IV steroids Malignancy of unknown source CT chest , abdomen, pelvis showed mediastinal, retroperitoneal lymphadenopathy and multiple liver lymph hypodense lesions Await pathology report LDH elevated, PSA within normal limit, alpha-fetoprotein normal limit, CEA, CA-19-9, HCG pending Diabetes type 2/hyperglycemia Hemoglobin A1c 8.8 Patient has never been diagnosed with diabetes before However patient was on course of steroids for past 1 month insulin sliding scale Allergic asthma Continue inhalers and home meds Hypertension Blood pressures under control, continue lisinopril Obstructive sleep apnea/obesity hypoventilation syndrome Patient will benefit with bariatric surgery Sleep study in the outpatient settings VS,Fishbone, I+O VS, Fishbone, I+O Laboratory Tests 11/22/19 06:16 Vital Signs Date Time Temp Pulse Resp B/P (MAP) Pulse Ox O2 Delivery O2 Flow Rate FiO2 11/22/19 10:46 17 Nasal Cannula 4.0 11/22/19 09:13 161/90 11/22/19 06:00 98.1 101 96 I&O- Last 24 Hours up to 6 AM 11/22/19 06:00 Intake Total 1620 ml Balance 1620 ml DROZHZHIN,SHAY DO Nov 22, 2019 12:35
[2019-11-22] MEDS: PERCOCET 5MG/325MG TAB PO PRN ×2 (15:12→21:30)
[2019-11-22 22:00] VITALS: BP 154/82
[2019-11-23] MEDS: COMBIVENT RESPIMAT 100-20MCG INHALER 4GM INH SCH ×2 (01:17→08:07)
[2019-11-23] MEDS: traMADol 50 MG TAB PO PRN ×3 (03:30→21:20)
[2019-11-23 06:00] VITALS: BP 168/82
[2019-11-23 06:26] LABS: HEMATOCRIT 47.8 % (42.0-52.0); HEMOGLOBIN 15.7 g/dl (13.5-17.5); MEAN CORPUSCULAR HEMOGLOBIN 26.1 pg (27.0-33.0); MEAN CORPUSCULAR HGB CONC 32.8 g/dl (32.0-36.5); MEAN CORPUSCULAR VOLUME 79.4 fl (80.0-96.0); RED BLOOD COUNT 6.02 10^6/uL (4.30-6.10)
[2019-11-23 06:27] LABS: PLATELET COUNT, AUTOMATED 75 10^3/uL (150-450)
[2019-11-23] MEDS: SLF 3 ML SYR IV SCH ×3 (06:39→22:26)
[2019-11-23] MEDS: methylPREDNISolone INJ 125 MG/2 ML VIAL (J2930) IV SCH ×3 (06:39→21:20)
[2019-11-23 06:46] LABS: CALCIUM LEVEL 8.5 MG/DL (8.5-10.1); CREATININE FOR GFR 1.39 MG/DL (0.70-1.30); GLOMERULAR FILTRATION RATE 59.9 (>60); POTASSIUM SERUM 4.5 MEQ/L (3.5-5.1)
[2019-11-23 06:51] LABS: LYMPHOCYTES 9 % (16-44); NEUTROPHILS 91 % (28-66); PLATELET ESTIMATE DECREASED (NORMAL)
--- NOTE | 2019-11-23 07:12 | IPNPDOC ---
Text Note Date of Service The patient was seen on 11/23/19. NOTE SUBJECTIVE: Patient was interviewed and examined on the med/surg floor this am. He reports increased increased lethargy and fatigue over the last 24 hours. He has also required an increase from 2L via NC to 4 L corresponding to increasing SOB. Ambulated yesterday 50 ft with PT. He also continues to report b/l lower back pain/discomfort. Denies chest pain/pressure. He has been eating and drinking without difficulty. Normal BMs. OBJECTIVE: VITAL SIGNS: Temperature: 98, pulse: 102, respiratory rate: 20, blood pressure: 168/82 (110), SpO2: 90 on 4L NC. GENERAL APPEARANCE: Interviewed and examined in his hospital room. Patient was found to be seated in his bedside chair eating breakfast. He did not appear in any acute distress. He was alert and oriented. HEENT: Normocephalic, atraumatic. Mucous members moist and pink, no obvious JVD. CARDIOVASCULAR: Regular rate and rhythm. No murmurs, rubs or gallops. Radial pulses are intact. There is no lower extremity edema LUNGS: Diminished lung sounds in the bases bilaterally, able to speak in full sentences, no wheezes rales or rhonchi appreciated. ABDOMEN: Obese, soft, nontender, nondistended without signs of guarding or obvious organomegaly. MUSCULOSKELETAL: Range of motion is intact in all 4 extremities. EXTREMITIES: No lower extremities bilaterally, no calf tenderness. Pulses 2+ in both upper and lower extremities bilaterally. NEUROLOGICAL: No dysarthria, aphasia. No focal neurologic deficits. PSYCHOLOGICAL: Mood and affect appears appropriate . ASSESSMENT/PLAN: Patient's 49 years old male with past history of morbid obesity, obstructive sleep apnea presented to the hospital with increased shortness of breath. Patient was found to have acute hypoxemic respiratory failure. Also patient was found to have lymphadenopathy. Pathology report from retroperitoneal lymph node was positive for malignancy. Currently waiting for final pathology report. Patient's IV abx were discontinued on 11/21 given that he had remained afebrile with resolving leukocytosis. However, overnight, he required an additional 2 L via NC to maintain saturation. WBC increased from 15.2 to 19.0. Will be restarted on PO abx. Discussed case with Pathology, who suspect germ-line origin. Will order testicular U/S while awaiting pathology. #Acute hypoxemic respiratory failure Differential diagnosis includes diffuse interstitial pulmonary diseases: Eosinophilic pneumonia, interstitial pneumonia, sarcoidosis Continue IV steroids, GI prophylaxis with Protonix 40 mg BID. Antibiotics stopped yesterday as infectious causes were thought to be less likely. Overnight, patient has required increased supplemental O2 to maintain saturations >90%. Exertional dyspnea with PT. Pt has remained afebrile, though WBC has increased from 15.2 to 19.0. Pt is on high-dose steroids, but elevated neutrophils speaks against demargination. Plan to start PO Levaquin 750mg daily. #Malignancy of unknown source CT chest ,abdomen, pelvis showed mediastinal, retroperitoneal lymphadenopathy and multiple liver lymph hypodense lesions Currently waiting for pathology report Discussed case with pathology, suspects germ-cell tumor, recommend testicular US for further evaluation. LDH elevated, PSA within normal limit, alpha-fetoprotein normal limit CEA, CA-19-9, HCG pending #ALANNAH BUN/Cr increased from 28/1.17-32/1.39 overnight Patient appears euvolemic Discontinue meloxicam, Percocet and Ultram for pain control #Thrombocytopenia Platelets of 145 on admission, 75 today Heparin for anticoagulation 4Ts for HIT calculated, score of 3% indicating low probability of HIT (<5%). Despite this, we will switch to Lovenox. Continue to monitor daily. #Diabetes type 2/hyperglycemia Hemoglobin A1c 8.8 Patient has never been diagnosed with diabetes before However patient was on course of steroids for past 1 month insulin sliding scale #Allergic asthma Continue inhalers and home meds #Hypertension Blood pressures under control, continue lisinopril #Obstructive sleep apnea/obesity hypoventilation syndrome Patient will benefit with bariatric surgery Sleep study in the outpatient settings DISPOSITION: Pending reduction of O2 requirement. IShay, have independently examined this patient and performed my own physical exam, as well as reviewed the documentation. I have discussed in detail with the resident / student the findings and plan of treatment as documented by the resident / student Jeferson FREY, I+Jeferson CARREON I+Rafael Laboratory Tests 11/23/19 05:42 Vital Signs Date Time Temp Pulse Resp B/P (MAP) Pulse Ox O2 Delivery O2 Flow Rate FiO2 11/23/19 06:00 98.0 102 20 168/82 (110) 92 Nasal Cannula 3.0 I&O- Last 24 Hours up to 6 AM 11/23/19 06:00 Intake Total 1650 ml Output Total 0 ml Balance 1650 ml JULY HAMMOND DO Nov 23, 2019 07:12 SHAY EDUARDO DO Nov 29, 2019 11:28
[2019-11-23] MEDS ORDERED: NS 1,000 ML IV SCH (07:30)
[2019-11-23 08:00] VITALS: O2SAT 89
[2019-11-23] MEDS: SYMBICORT 80/4.5MCG INHALER 6GM INH SCH ×2 (08:07→20:21)
[2019-11-23] MEDS: HumaLOG INSULIN (NovoLOG) PER UNIT SC SCH ×4 (08:09→21:21)
[2019-11-23] MEDS: PANTOPRAZOLE 40MG TAB (PROTONIX) PO SCH ×2 (08:12→21:20)
[2019-11-23] MEDS: HEPARIN SOD (PORCINE) 5000 UNITS/ML VIAL (J1644 PER 1000UNITS) SC SCH (08:12)
[2019-11-23] MEDS: MONTELUKAST 10 MG TAB PO SCH (08:13)
[2019-11-23] MEDS: DULoxetine 30 MG CAP (CYMBALTA) PO SCH (08:13)
[2019-11-23] MEDS: PERCOCET 5MG/325MG TAB PO PRN ×2 (08:14→15:57)
[2019-11-23] MEDS: lisinopriL 10 MG TAB PO SCH (08:20)
[2019-11-23] MEDS ORDERED: PANTOPRAZOLE 40MG TAB (PROTONIX) PO SCH (09:00)
[2019-11-23] MEDS: LevoFLOXacin 750 MG TABLET PO SCH (10:01)
[2019-11-23 10:06] LABS: ANA (HEP2) Negative (.); ASPERGILLUS FLAVUS ABY Negative (Neg:<1:1); ASPERGILLUS FUMIGATUS ABY Negative (Neg:<1:1); ASPERGILLUS GALACTOMANNAN AG 0.04 Index (0.00-0.49); ASPERGILLUS NIGER ABY Negative (Neg:<1:1)
--- NOTE | 2019-11-23 10:59 | REP ---
SCROTAL ULTRASOUND: Real-time sonographic evaluation of the scrotum and contents performed. Testicles are normal in size and echotexture, right testicle measuring 3.6 x 1.3 x 2.2 cm and left testicle 3.1 x 1.7 x 2.6 cm. There is no testicular mass or torsion. Blood flow is seen in each testicle with duplex Doppler evaluation. Epididymis appears unremarkable bilaterally. IMPRESSION: Negative scrotal ultrasound with no evidence of testicular mass. Electronically Signed by Keo Khan MD 11/23/2019 02:45 P
[2019-11-23 11:57] LABS: HIV 1&2 SCREEN CENTAUR NEGATIVE (NEGATIVE)
[2019-11-23] MEDS: IPRATROPIUM 0.5MG/ALBUTEROL 2.5MG INH SOL UD 3ML (DUONEB)(J7620) INH SCH ×3 (14:00→20:00)
[2019-11-23 14:30] VITALS: BP 133/75
[2019-11-23] MEDS: ENOXAPARIN 40 MG/0.4 ML SYRINGE (J1650) SC SCH (15:56)
[2019-11-23 22:00] VITALS: BP 136/75
[2019-11-24] MEDS: IPRATROPIUM 0.5MG/ALBUTEROL 2.5MG INH SOL UD 3ML (DUONEB)(J7620) INH SCH ×5 (01:58→20:13)
[2019-11-24] MEDS: LevoFLOXacin 750 MG TABLET PO SCH (05:50)
[2019-11-24] MEDS: PERCOCET 5MG/325MG TAB PO PRN ×3 (05:51→21:47)
[2019-11-24] MEDS: methylPREDNISolone INJ 125 MG/2 ML VIAL (J2930) IV SCH ×3 (05:51→21:47)
[2019-11-24] MEDS: SLF 3 ML SYR IV SCH ×3 (05:52→21:48)
[2019-11-24 06:00] VITALS: BP 137/76
[2019-11-24] MEDS: SYMBICORT 80/4.5MCG INHALER 6GM INH SCH (07:49)
[2019-11-24] MEDS: DULoxetine 30 MG CAP (CYMBALTA) PO SCH (08:24)
[2019-11-24] MEDS: ENOXAPARIN 40 MG/0.4 ML SYRINGE (J1650) SC SCH (08:24)
[2019-11-24] MEDS: MONTELUKAST 10 MG TAB PO SCH (08:24)
[2019-11-24] MEDS: PANTOPRAZOLE 40MG TAB (PROTONIX) PO SCH ×2 (08:24→21:46)
[2019-11-24] MEDS: HumaLOG INSULIN (NovoLOG) PER UNIT SC SCH ×4 (08:25→21:49)
[2019-11-24 08:48] LABS: HEMATOCRIT 47.3 % (42.0-52.0); HEMOGLOBIN 15.6 g/dl (13.5-17.5); MEAN CORPUSCULAR HEMOGLOBIN 26.7 pg (27.0-33.0); MEAN CORPUSCULAR VOLUME 80.9 fl (80.0-96.0); RED BLOOD COUNT 5.85 10^6/uL (4.30-6.10); WHITE BLOOD COUNT 22.3 10^3/uL (4.0-10.0)
[2019-11-24 08:50] LABS: PLATELET COUNT, AUTOMATED 59 10^3/uL (150-450)
[2019-11-24 09:17] LABS: BLOOD UREA NITROGEN 34 MG/DL (7-18); CALCIUM LEVEL 8.5 MG/DL (8.5-10.1); CARBON DIOXIDE LEVEL 17 MEQ/L (21-32); CHLORIDE LEVEL 102 MEQ/L (98-107); GLOMERULAR FILTRATION RATE > 60.0 (>60); GLUCOSE, FASTING 213 MG/DL (70-100); POTASSIUM SERUM 5.1 MEQ/L (3.5-5.1); SODIUM LEVEL 134 MEQ/L (136-145)
[2019-11-24] MEDS: traMADol 50 MG TAB PO PRN ×2 (10:21→19:47)
[2019-11-24 10:48] LABS: CA19-9 TUMOR MARKER,CARBOHYDRA 30409.7 U/ML (<35.0)
--- NOTE | 2019-11-24 11:17 | REP ---
Clinical: Hypoxia. Comparison: 11/17/2019. Findings: Mediastinum and cardiac silhouette are within normal limits and stable. The lung alejo demonstrate diffuse interstitial and alveolar infiltrates relatively unchanged from prior examination. No definite effusion. No pneumothorax. Skeletal structures appear intact. Impression: Diffuse bilateral alveolar and interstitial infiltrates without change from prior examination. Electronically Signed by Kostas Orozco MD 11/24/2019 11:09 A
--- NOTE | 2019-11-24 11:20 | IPNPDOC ---
Text Note Date of Service The patient was seen on 11/24/19. NOTE SUBJECTIVE: Patient is a gentleman examined on the med/surg floor. He continues to report increased lethargy and fatigue since 11/22/2019. He states that his bilateral lower back pain is adequately controlled with his current pain regimen. Denies any chest pain/pressure. He has continued to work with physical therapy. He is eating and drinking without difficulty with good urine output and normal bowel movements. OBJECTIVE: VITAL SIGNS: See below GENERAL APPEARANCE: Interviewed and examined in his hospital room. Patient was found to be seated in his bedside chair eating breakfast. He did not appear in any acute distress. He was alert and oriented. HEENT: Normocephalic, atraumatic. Mucous members moist and pink, no obvious JVD. CARDIOVASCULAR: Regular rate and rhythm. No murmurs, rubs or gallops. Radial pulses are intact. There is no lower extremity edema LUNGS: Diminished lung sounds in the bases bilaterally, faint wheezes. Pt able to speak in full sentences, no rales or rhonchi appreciated. ABDOMEN: Obese, soft, nontender, nondistended without signs of guarding or obvious organomegaly. MUSCULOSKELETAL: Range of motion is intact in all 4 extremities. EXTREMITIES: No lower extremities bilaterally, no calf tenderness. Pulses 2+ in both upper and lower extremities bilaterally. NEUROLOGICAL: No dysarthria, aphasia. No focal neurologic deficits. PSYCHOLOGICAL: Mood and affect appears appropriate . ASSESSMENT/PLAN: Patient's 49 years old male with past history of morbid obesity, obstructive sleep apnea presented to the hospital with increased shortness of breath. Patient was found to have acute hypoxemic respiratory failure. Also patient was found to have lymphadenopathy. Pathology report from retroperitoneal lymph node was positive for malignancy. Currently waiting for final pathology report. Patient's IV abx were discontinued on 11/21 given that he had remained afebrile with resolving leukocytosis. WBC increased from 15.2 to 19.0. Pt was started on Levoquin PO. This morning, his WBC continued to increase to 22.3. Procalcitonin will be ordered to confirm suspicion of bacterial cause. Discussed case with Pathology, who suspected germ-line origin, supported by elevated LDH and HCG. Testicular U/S negative. Pt continued to have an increased oxygen requirement of 4.5L. Currently awaiting pathology results and remaining tumor markers. #Acute hypoxemic respiratory failure * Differential diagnosis includes diffuse interstitial pulmonary diseases: Eosinophilic pneumonia, interstitial pneumonia, sarcoidosis * Continue IV steroids, GI prophylaxis with Protonix 40 mg BID. * Antibiotics stopped on 11/21 as infectious causes were thought to be less likely. * Thereafter, patient has required 4.5 L to maintain saturations >90%. Exertional dyspnea with PT. * Pt has remained afebrile, though WBC has increased from 19 to 22.3 overnight. Pt is on high-dose steroids, but elevated neutrophils speaks against demargination. * PO Levaquin 750mg daily. * Will order Pro-calcitonin to help determine likelihood of bacterial infection. #Malignancy of unknown source * CT chest ,abdomen, pelvis showed mediastinal, retroperitoneal lymphadenopathy and multiple liver lymph hypodense lesions * Currently waiting for pathology report. * Discussed case with pathology, suspects germ-cell tumor, recommend testicular US for further evaluation. * Case was also discussed with oncology, who suspects that, if non-testicular germ-cell tumor is confirmed, pt would most benefit from chemotherapy and further treatment in [place], [place]. * Testicular U/S negative. * LDH elevated, HCG elevated. PSA within normal limit, alpha-fetoprotein within normal limits. HIV negative. * CEA, CA-19-9 pending. #ALANNAH, resolved * BUN/Cr increased from 28/1.17-32/1.39 on 11/22. * BUN/Cr normalized to 34/1.20 on 11/23. * Suspect to be 2/2 to IV contrast-induced nephropathy. Meloxicam was also discontinued yesterday which may have been a contributing factor. #Thrombocytopenia * Platelets of 145 on admission, 59 today * Heparin switched to Lovenox on 11/22. * 4Ts for HIT calculated, score of 3% indicating low probability of HIT (<5%). * Despite this, HIP Ab and Serotonin Assay pending * Continue to monitor daily. #Diabetes type 2/hyperglycemia * Hemoglobin A1c 8.8 * Patient has never been diagnosed with diabetes prior to admission. * However patient was on course of steroids for past 1 month. * Currently on high-dose steriods which will increase BSL. * Insulin sliding scale * Will start 5 units of #Allergic asthma * Continue inhalers and home meds #Hypertension * Blood pressures under control, continue lisinopril #Obstructive sleep apnea/obesity hypoventilation syndrome * Patient will benefit with bariatric surgery * Sleep study as an outpatient #Bilateral low back pain * Percocet and Ultram for pain control DISPOSITION: Pending reduction of O2 requirement. I, Shay Ball, have independently examined this patient and performed my own physical exam, as well as reviewed the documentation. I have discussed in detail with the resident / student the findings and plan of treatment as documented by the resident / student Jeferson FREY, I+O VSJeferson, I+O Laboratory Tests 11/24/19 08:29 Vital Signs Date Time Temp Pulse Resp B/P (MAP) Pulse Ox O2 Delivery O2 Flow Rate FiO2 11/24/19 10:21 18 11/24/19 08:00 4.0 11/24/19 06:21 High Flow Cannula 11/24/19 06:00 96.6 98 137/76 (96) 91 I&O- Last 24 Hours up to 6 AM 11/24/19 06:00 Intake Total 1677 ml Output Total 1320 ml Balance 357 ml JULY HAMMOND DO Nov 24, 2019 11:20 SHAY BALL DO Nov 29, 2019 11:29
[2019-11-24 14:00] VITALS: BP 142/80
[2019-11-24] MEDS: LEVEMIR (INSULIN DETEMIR) 1 UNITS/0.01ML SC SCH (21:48)
[2019-11-24 22:00] VITALS: BP 160/81; O2SAT 89
[2019-11-25] VITALS (10 sets, daily range): BP systolic 106–165; BP diastolic 59–97; O2SAT 88–89
[2019-11-25] MEDS: IPRATROPIUM 0.5MG/ALBUTEROL 2.5MG INH SOL UD 3ML (DUONEB)(J7620) INH SCH ×4 (01:38→20:23)
[2019-11-25] MEDS: PERCOCET 5MG/325MG TAB PO PRN ×2 (03:54→19:45)
[2019-11-25] MEDS: methylPREDNISolone INJ 125 MG/2 ML VIAL (J2930) IV SCH ×2 (05:54→17:50)
[2019-11-25] MEDS: LevoFLOXacin 750 MG TABLET PO SCH (05:54)
[2019-11-25] MEDS: SLF 3 ML SYR IV SCH ×3 (05:55→21:40)
[2019-11-25 06:12] LABS: HEMATOCRIT 46.3 % (42.0-52.0); HEMOGLOBIN 14.8 g/dl (13.5-17.5); MEAN CORPUSCULAR HEMOGLOBIN 25.5 pg (27.0-33.0); MEAN CORPUSCULAR VOLUME 79.8 fl (80.0-96.0); WHITE BLOOD COUNT 21.3 10^3/uL (4.0-10.0)
[2019-11-25 06:13] LABS: PLATELET COUNT, AUTOMATED 51 10^3/uL (150-450)
[2019-11-25 06:37] LABS: ALBUMIN 2.6 GM/DL (3.2-5.2); ALT/SGPT 147 U/L (12-78); BILIRUBIN,DIRECT 0.4 MG/DL (0.0-0.2); BILIRUBIN,TOTAL 1.2 MG/DL (0.2-1.0); BLOOD UREA NITROGEN 31 MG/DL (7-18); CALCIUM LEVEL 8.5 MG/DL (8.5-10.1); CARBON DIOXIDE LEVEL 19 MEQ/L (21-32); CHLORIDE LEVEL 99 MEQ/L (98-107); CREATININE FOR GFR 1.22 MG/DL (0.70-1.30); GLOMERULAR FILTRATION RATE > 60.0 (>60); GLUCOSE, FASTING 258 MG/DL (70-100); POTASSIUM SERUM 5.1 MEQ/L (3.5-5.1); SODIUM LEVEL 132 MEQ/L (136-145); TOTAL PROTEIN 5.6 GM/DL (6.4-8.2)
[2019-11-25 06:44] LABS: LYMPHOCYTES 3 % (16-44); METAMYELOCYTES 1 % (0-0); MONOCYTES 3 % (0-5); NEUTROPHILS 92 % (28-66)
[2019-11-25 06:46] LABS: PLATELET ESTIMATE DECREASED (NORMAL)
[2019-11-25 06:47] LABS: ANISOCYTOSIS 1+; MICROCYTOSIS 1+
[2019-11-25] MEDS: ENOXAPARIN 40 MG/0.4 ML SYRINGE (J1650) SC SCH (08:30)
[2019-11-25] MEDS: HumaLOG INSULIN (NovoLOG) PER UNIT SC SCH ×4 (08:30→21:40)
[2019-11-25] MEDS: DULoxetine 30 MG CAP (CYMBALTA) PO SCH (08:30)
[2019-11-25] MEDS: PANTOPRAZOLE 40MG TAB (PROTONIX) PO SCH ×2 (08:30→20:46)
[2019-11-25 09:10] LABS: INR 1.95; PARTIAL THROMBOPLASTIN TIME 27.5 SECONDS (25.0-38.4)
[2019-11-25] MEDS: lisinopriL 10 MG TAB PO SCH (09:47)
[2019-11-25 09:48] LABS: NT-PRO BNP 71 PG/ML (<125)
[2019-11-25] MEDS: traMADol 50 MG TAB PO PRN ×2 (12:23→20:46)
--- NOTE | 2019-11-25 16:30 | IPNPDOC ---
Date Seen The patient was seen on 11/25/19. Progress Note SUBJECTIVE: Noah was seen and examined at the bedside this morning. He states he is feeling worse today and having more and more trouble breathing. He is having difficulty showering and has no energy. He states he had some improvement using CPAP overnight, but he felt somewhat claustrophobic. His pain is well-managed. He is still unable to eat due to decreased appetite and inability to taste food. He states he is eating the minimum, but has no desire to eat anymore. Pathology results from [facility] demonstrate more likely GI origin. Due to the patient's declining functional status and concern for DIC, an attempt was made to transfer the patient to [facility]. I spoke to Dr. Joshua Ayala, who states that due to the patient's poor functional status he would not be eligible for inpatient chemotherapy. [facility] Oncology (Ryan) to see and evaluate patient this evening. OBJECTIVE: VITAL SIGNS: See below GENERAL APPEARANCE: Interviewed and examined in his hospital room. Patient was found to be seated in his bedside chair eating breakfast. He did not appear in any acute distress. He was alert and oriented. HEENT: Normocephalic, atraumatic. Mucous members moist and pink, no obvious JVD. CARDIOVASCULAR: Regular rate and rhythm. No murmurs, rubs or gallops. Radial pulses are intact. There is no lower extremity edema LUNGS: Diminished lung sounds in the bases bilaterally, faint wheezes. Pt able to speak in full sentences, no rales or rhonchi appreciated. ABDOMEN: Obese, soft, nontender, nondistended without signs of guarding or obvious organomegaly. MUSCULOSKELETAL: Range of motion is intact in all 4 extremities. EXTREMITIES: No lower extremities bilaterally, no calf tenderness. Pulses 2+ in both upper and lower extremities bilaterally. NEUROLOGICAL: No dysarthria, aphasia. No focal neurologic deficits. PSYCHOLOGICAL: Mood and affect appears appropriate . ASSESSMENT/PLAN: Patient's 49 years old male with past history of morbid obesity, obstructive sleep apnea presented to the hospital with shortness of breath. Patient has been on high dose steroids and antibiotics with only minimal improvement in respiratory status. 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 Answer tumor markers including CA 199 and CEA are elevated. The patient's platelets have continued to drop, concerning for DIC. All potentially offending medications have been stopped. D-dimer found to be elevated, fibrinogen is low. #Acute hypoxemic respiratory failure Differential diagnosis includes diffuse interstitial pulmonary diseases: Lymphangitic carcinomatosis, interstitial pneumonia Continue IV steroids, GI prophylaxis with Protonix 40 mg BID. Antibiotics stopped on 11/21 as infectious causes were thought to be less likely and concern for thrombus cytopenia secondary to Levaquin. Patient is to use CPAP at night from now forward. Thereafter, patient has required 4.5 L to maintain saturations >90%. Exertional dyspnea with PT. Pt has remained afebrile, though WBC has increased from 19 to 22.3 overnight. Pt is on high-dose steroids, but elevated neutrophils speaks against demargination. Pro-calcitonin found to be 0.18. #Malignancy of unknown source CT chest ,abdomen, pelvis showed mediastinal, retroperitoneal lymphadenopathy and multiple liver lymph hypodense lesions Pathology report from [facility] demonstrates really differentiated adenocarcinoma with patchy comedo-type necrosis. Nonspecific for primary site, possible primary is GI tract and less likely pancreatobiliary tract. Discussed case with pathology, suspects germ-cell tumor, recommend testicular US for further evaluation. Case was also discussed with oncology, Dr. Davis, who will see the patient this evening. Testicular U/S negative. LDH elevated, HCG elevated. PSA within normal limit, alpha-fetoprotein within normal limits. HIV negative. CEA elevated at 302.1, CA-19-9 elevated at 30,409.7 #ALANNAH, resolved BUN/Cr increased from 28/1.17-32/1.39 on 11/22. BUN/Cr normalized to 34/1.20 on 11/23. Suspect to be 2/2 to IV contrast-induced nephropathy. Meloxicam was also discontinued yesterday which may have been a contributing factor. #Thrombocytopenia Platelets of 145 on admission, down to 51 today Heparin switched to Lovenox on 11/22. Lovenox held due to thrombocytopenia 4Ts for HIT calculated, score of 3% indicating low probability of HIT (<5%). Despite this, HIP Ab and Serotonin Assay pending Continue to monitor daily. #Diabetes type 2/hyperglycemia Hemoglobin A1c 8.8 Patient has never been diagnosed with diabetes prior to admission. However patient was on course of steroids for past 1 month. Currently on high-dose steriods which will increase BSL. Insulin sliding scale, Levemir 5 units daily at bedtime #Allergic asthma Continue inhalers and home meds #Hypertension Blood pressures under control, continue lisinopril #Obstructive sleep apnea/obesity hypoventilation syndrome Patient will benefit with bariatric surgery Sleep study as an outpatient #Bilateral low back pain Percocet and Ultram for pain control DISPOSITION: Pending reduction of O2 requirement. VS, I&O, 24H, Fishbone Vital Signs/I&O Vital Signs Date Time Temp Pulse Resp B/P (MAP) Pulse Ox O2 Delivery O2 Flow Rate FiO2 11/25/19 14:00 97.6 126 19 107/59 (75) 88 High Flow Cannula 5.0 I&O- Last 24 Hours up to 6 AM 11/25/19 06:00 Intake Total 1600 ml Output Total 220 ml Balance 1380 ml Laboratory Data 24H LABS Laboratory Tests 2 11/24/19 16:18: Bedside Glucose (Misc Panel) 242H 11/24/19 20:38: Bedside Glucose (Misc Panel) 290H 11/25/19 05:43: Immature Granulocyte % (Auto) , Neutrophils (%) (Auto) , Nucleated Red Blood Cells % (auto) 0.0, Neutrophils 92H, Band Neutrophils 1, Lymphocytes (Manual) 3L, Monocytes (Manual) 3, Metamyelocytes 1H, Anisocytosis 1+, Microcytosis 1+, Platelet Estimate DECREASED, Differential Slide Review Report, Peripheral Blood Smear Path Consult PERIPHERAL SMEAR, Anion Gap 14, Glomerular Filtration Rate > 60.0, Calcium Level 8.5, Total Bilirubin 1.2H, Direct Bilirubin 0.4H, Aspartate Amino Transf (AST/SGOT) 81H, Alanine Aminotransferase (ALT/SGPT) 147H, Alkaline Phosphatase 221H, YF-Cip-X-Type Natriuretic Peptide 71, Total Protein 5.6L, Albumin 2.6L, Albumin/Globulin Ratio 0.87L 11/25/19 08:47: Prothrombin Time 22.0H, Prothromb Time International Ratio 1.95, Activated Partial Thromboplast Time 27.5, Fibrinogen 60L 11/25/19 11:01: D-Dimer, Quantitative > 4000H, Gamma Glutamyl Transferase 768H 11/25/19 11:15: Bedside Glucose (Misc Panel) 302H CBC/BMP Laboratory Tests 11/25/19 05:43 Microbiology Microbiology 11/24/19 Blood Culture - Preliminary, Resulted No growth after 24 hours . All specim... 11/22/19 Stool Occult Blood ([facility]) - Final, Complete 11/17/19 Blood Culture - Final, Complete NO GROWTH AFTER 5 DAYS 11/17/19 Blood Culture - Final, Complete NO GROWTH AFTER 5 DAYS 11/17/19 Respiratory Virus Panel (PCR) ([facility]) - Final, Complete GME ATTESTATION GME ATTESTATION My faculty preceptor for this patient encounter was physically present during the encounter and was fully available. All aspects of the patient interview, examination, medical decision making process, and medical care plan development were reviewed and approved by the faculty preceptor. The faculty preceptor is aware and concurs with the plan as stated in the body of this note and will attest to such by his/her cosignature. ATTENDING NOTE I, Shay Eduardo, have independently examined this patient and performed my own physical exam, as well as reviewed the documentation. I have discussed in detail with the resident / student the findings and plan of treatment as documented by the resident / student LETTY TREVINO MD Nov 25, 2019 15:51 SHAY EDUARDO DO Nov 29, 2019 11:27
[2019-11-25] MEDS: LEVEMIR (INSULIN DETEMIR) 1 UNITS/0.01ML SC SCH (21:39)
[2019-11-26] VITALS (10 sets, daily range): BP systolic 110–121; BP diastolic 59–72; O2SAT 88–92
[2019-11-26] MEDS: SIMETHICONE 40MG/0.6ML DROPS 30ML PO PRN ×3 (00:13→17:27)
[2019-11-26] MEDS: IPRATROPIUM 0.5MG/ALBUTEROL 2.5MG INH SOL UD 3ML (DUONEB)(J7620) INH SCH ×4 (01:09→20:07)
[2019-11-26] MEDS: PERCOCET 5MG/325MG TAB PO PRN ×2 (01:50→13:01)
[2019-11-26] MEDS: methylPREDNISolone INJ 125 MG/2 ML VIAL (J2930) IV SCH ×2 (06:03→17:27)
[2019-11-26] MEDS: SLF 3 ML SYR IV SCH ×3 (06:03→20:54)
[2019-11-26] MEDS: traMADol 50 MG TAB PO PRN ×2 (06:04→20:58)
[2019-11-26 06:17] LABS: HEMATOCRIT 46.3 % (42.0-52.0); HEMOGLOBIN 15.2 g/dl (13.5-17.5); MEAN CORPUSCULAR HEMOGLOBIN 26.2 pg (27.0-33.0); MEAN CORPUSCULAR HGB CONC 32.8 g/dl (32.0-36.5); MEAN CORPUSCULAR VOLUME 79.7 fl (80.0-96.0); RED BLOOD COUNT 5.81 10^6/uL (4.30-6.10); WHITE BLOOD COUNT 25.7 10^3/uL (4.0-10.0)
[2019-11-26 06:18] LABS: PLATELET COUNT, AUTOMATED 58 10^3/uL (150-450)
[2019-11-26 06:41] LABS: CALCIUM LEVEL 8.9 MG/DL (8.5-10.1); CREATININE FOR GFR 1.39 MG/DL (0.70-1.30); GLOMERULAR FILTRATION RATE 59.9 (>60); POTASSIUM SERUM 5.1 MEQ/L (3.5-5.1)
[2019-11-26] MEDS: HumaLOG INSULIN (NovoLOG) PER UNIT SC SCH ×4 (07:30→20:54)
[2019-11-26] MEDS: PANTOPRAZOLE 40MG TAB (PROTONIX) PO SCH ×2 (08:40→20:53)
[2019-11-26] MEDS: DULoxetine 30 MG CAP (CYMBALTA) PO SCH (08:40)
[2019-11-26] MEDS: lisinopriL 10 MG TAB PO SCH (08:41)
[2019-11-26] MEDS ORDERED: LORazepam 2 MG/ML VIAL (J2060) As Ordered ONE (10:23)
[2019-11-26] MEDS: LORazepam 2 MG/ML VIAL (J2060) IV PRN (10:27)
[2019-11-26] MEDS ORDERED: LIDOCAINE 1% MDV 20ML VIAL As Ordered ONE (11:05)
[2019-11-26] MEDS ORDERED: ONDANSETRON 4MG/2ML VIAL (J2405) IV PRN ×3 (12:00→15:19)
[2019-11-26] MEDS ORDERED: ONDANSETRON 4MG/2ML VIAL (J2405) IV SCH (12:00)
--- NOTE | 2019-11-26 12:48 | REP ---
Procedure: PICC line insertion with Carson The procedure was performed under the direct supervision of Dr. Lerma. The risks and benefits of the procedure were explained to the patient and informed consent was obtained. The patient was unable to lay flat therefore the procedure was performed while the patient was still in the stretcher The . Right basilic vein was localized using ultrasound guidance. The skin was prepped and draped in a sterile fashion. 1% lidocaine was used as a local anesthetic. Using ultrasound guidance the basilic vein was cannulated and a 0.018 guidewire was inserted. The needle was removed and a 5.5 Korean dilator and peel-away sheath was inserted over the guide wire. A 5.5 Korean dual lumen catheter was cut to length of 41 cm. The dilator was removed and the catheter was inserted over the guide wire. A chest x-ray was performed and the image demonstrates the catheter to be short as the tip of the catheter is in the proximal right subclavian vein. The catheter was removed and a new catheter was cut to length of 50 cm. The catheter was inserted over the guide wire. Another chest x-ray was performed and the image demonstrates the tip of the catheter to be in the SVC. The peel-away sheath was removed and the catheter was flushed with heparinized saline as per Hospital protocol. The catheter was affixed to the skin and a sterile dressing was applied. The patient tolerated the procedure well and there were no immediate complications. Electronically Signed by DUTCH Goodman 11/26/2019 12:02 P Electronically Signed by Yinka Lerma MD 11/26/2019 12:38 P
[2019-11-26] MEDS ORDERED: SODIUM CHLORIDE 0.9% INJ 10 ML SYR IV PRN (13:15)
[2019-11-26] MEDS: FONDAPARINUX SODIUM 2.5 MG/0.5 ML SYR (J1652 PER 0.5MG) SC SCH (14:20)
--- NOTE | 2019-11-26 15:17 | IPNPDOC ---
Text Note Date of Service The patient was seen on 11/26/19. NOTE SUBJECTIVE: Patient was interviewed and examined in his hospital room this morning. He was found to be seated on the side of his bed using his cell phone and no acute distress. Overnight, patient's oxygen demand continued to climb he is now utilizing 4.5 L via nasal cannula in order to maintain saturations about 90%. Additionally, patient also was given for units of cryoprecipitate without any reaction or complication. He is to have a PICC line placed this morning. He remains desponded in regards to his diagnosis and prognosis. OBJECTIVE: VITAL SIGNS: See below GENERAL APPEARANCE: Interviewed and examined in his hospital room. Patient was found to be seated in his bedside chair eating breakfast. He did not appear in any acute distress. He was alert and oriented. HEENT: Normocephalic, atraumatic. Mucous members moist and pink, no obvious JVD. CARDIOVASCULAR: Regular rate and rhythm. No murmurs, rubs or gallops. Radial pu lses are intact. There is no lower extremity edema LUNGS: Diminished lung sounds in the bases bilaterally, faint wheezes. Pt able to speak in full sentences, no rales or rhonchi appreciated. ABDOMEN: Obese, soft, nontender, nondistended without signs of guarding or obvious organomegaly. MUSCULOSKELETAL: Range of motion is intact in all 4 extremities. EXTREMITIES: No lower extremities bilaterally, no calf tenderness. Pulses 2+ in both upper and lower extremities bilaterally. NEUROLOGICAL: No dysarthria, aphasia. No focal neurologic deficits. PSYCHOLOGICAL: Mood and affect is depressed, appropriate given current clinical condition and prognosis ASSESSMENT: Patient's 49 years old male with past history of morbid obesity, obstructive sleep apnea presented to the hospital with shortness of breath. Patient has been on high dose steroids and antibiotics with only minimal improvement in respiratory status. 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 Answer tumor markers including CA 199 and CEA are elevated. The patient's platelets have continued to drop, concerning for DIC. All potentially offending medications have been stopped. D-dimer found to be elevated, fibrinogen is low. Both oncology and respiratory remain on board. Through their efforts, patient will begin chemotherapy treatment at the [facility] tomorrow, 11/27/2019. A PICC line was placed earlier today in preparation. PLAN: #Acute hypoxemic respiratory failure * Differential diagnosis includes diffuse interstitial pulmonary diseases: Lymphangitic carcinomatosis, interstitial pneumonia * Continue IV steroids, GI prophylaxis with Protonix 40 mg BID. * Antibiotics stopped on 11/21 as infectious causes were thought to be less likely and concern for thrombocytopenia secondary to Levaquin. * Patient is to use CPAP at night from now forward. * Thereafter, patient has required 4.5 L to maintain saturations >90%. Exertional dyspnea with PT. * Pt has remained afebrile, though WBC has increased from 19 to 22.3 overnight. Pt is on high-dose steroids, but elevated neutrophils speak against demargination. * Pro-calcitonin of 0.18. #Malignancy of unknown source * CT chest ,abdomen, pelvis showed mediastinal, retroperitoneal lymphadenopathy and multiple liver lymph hypodense lesions * Pathology report from [facility] demonstrates really differentiated adenocarcinoma with patchy comedo-type necrosis. Nonspecific for primary site, possible primary is GI tract and less likely pancreatobiliary tract. * Dr. Davis is following pt. will be receiving chemotherapy at the [facility] starting tomorrow, 11/27/19. PICC placed today by IR. * LDH elevated, HCG elevated. PSA within normal limit, alpha-fetoprotein within normal limits. HIV negative. * CEA elevated at 302.1, CA-19-9 elevated at 30,409.7 #ALANNAH, recurrent * BUN/Cr increased from 28/1.17-32/1.39 on 11/22. * BUN/Cr today of 37/1.39. * Suspect to be 2/2 to IV contrast-induced nephropathy. Meloxicam was also discontinued yesterday which may have been a contributing factor. #Thrombocytopenia * Suspecting DIC, given patient's widespread malignancy, increased d-dimer and decreased fibrinogen. * Platelets of 145 on admission. 58 today, increased from 51 on 11/26/19. Immature Plt fraction of 16. * No signs of bleeding or petechia * Heparin switched to Lovenox on 11/22. Lovenox held due to thrombocytopenia. 4Ts for HIT calculated, score of 3% indicating low probability of HIT (<5%). * Despite this, HIP Ab and Serotonin Assay pending * Continue to monitor daily. #Diabetes type 2/hyperglycemia * Hemoglobin A1c 8.8. * Patient has never been diagnosed with diabetes prior to admission. * However patient was on course of steroids for past 1 month. * Currently on high-dose steroids which will increase BSL. * Insulin sliding scale, Levemir 5 units daily at bedtime. #Allergic asthma * Continue inhalers and home meds #Hypertension * Blood pressures under control, continue lisinopril #Obstructive sleep apnea/obesity hypoventilation syndrome * Patient will benefit with bariatric surgery * Sleep study as an outpatient #Bilateral low back pain * Percocet and Ultram for pain control #Transaminitis * Unclear etiology at this time * AST/ALT of 81/147 * Total and Direct Bili, 1.2 and 0.4 respectively. * GGT of 768, Alk Phos of 221 CODE STATUS: FULL CODE IShay, have independently examined this patient and performed my own physical exam, as well as reviewed the documentation. I have discussed in detail with the resident / student the findings and plan of treatment as documented by the resident / student Jeferson FREY, I+O VSJeferson I+O Laboratory Tests 11/26/19 05:44 Vital Signs Date Time Temp Pulse Resp B/P (MAP) Pulse Ox O2 Delivery O2 Flow Rate FiO2 11/26/19 13:31 18 11/26/19 09:00 5.0 11/26/19 08:41 119/75 11/26/19 06:44 High Flow Cannula 11/26/19 06:00 96.4 115 88 I&O- Last 24 Hours up to 6 AM 11/26/19 06:00 Intake Total 1160 ml Output Total 600 ml Balance 560 ml JULY HAMMOND DO Nov 26, 2019 15:17 SHAY EDUARDO DO Nov 29, 2019 11:28
[2019-11-26] MEDS: SODIUM CHLORIDE 0.9% INJ 10 ML SYR IV SCH (17:27)
[2019-11-26] MEDS: LEVEMIR (INSULIN DETEMIR) 1 UNITS/0.01ML SC SCH (20:54)
[2019-11-27] VITALS (40 sets, daily range): BP systolic 97–168; BP diastolic 54–99; O2SAT 86–98
[2019-11-27] MEDS: PERCOCET 5MG/325MG TAB PO PRN ×2 (00:29→12:56)
[2019-11-27] MEDS: IPRATROPIUM 0.5MG/ALBUTEROL 2.5MG INH SOL UD 3ML (DUONEB)(J7620) INH SCH ×4 (01:40→20:16)
[2019-11-27 04:58] LABS: HEMATOCRIT 46.9 % (42.0-52.0); HEMOGLOBIN 15.4 g/dl (13.5-17.5); MEAN CORPUSCULAR HEMOGLOBIN 26.4 pg (27.0-33.0); MEAN CORPUSCULAR HGB CONC 32.8 g/dl (32.0-36.5); MEAN CORPUSCULAR VOLUME 80.3 fl (80.0-96.0); RED BLOOD COUNT 5.84 10^6/uL (4.30-6.10); WHITE BLOOD COUNT 28.1 10^3/uL (4.0-10.0)
[2019-11-27 05:02] LABS: PLATELET COUNT, AUTOMATED 48 10^3/uL (150-450)
[2019-11-27 05:18] LABS: EOSINOPHILS 1 % (0-3); LYMPHOCYTES 2 % (16-44); METAMYELOCYTES 1 % (0-0); MONOCYTES 6 % (0-5); MYELOCYTES 1 % (0-0); NEUTROPHILS 86 % (28-66)
[2019-11-27 05:19] LABS: PLATELET ESTIMATE MARKED DECREASE (NORMAL)
[2019-11-27 05:20] LABS: ANISOCYTOSIS 1+; MICROCYTOSIS 1+
[2019-11-27 05:39] LABS: ALBUMIN 2.8 GM/DL (3.2-5.2); BILIRUBIN,TOTAL 1.4 MG/DL (0.2-1.0); CALCIUM LEVEL 8.8 MG/DL (8.5-10.1); CREATININE FOR GFR 1.64 MG/DL (0.70-1.30); GLOMERULAR FILTRATION RATE 49.5 (>60); POTASSIUM SERUM 5.4 MEQ/L (3.5-5.1); TOTAL PROTEIN 5.6 GM/DL (6.4-8.2)
[2019-11-27] MEDS: SODIUM CHLORIDE 0.9% INJ 10 ML SYR IV SCH ×2 (05:39→17:53)
[2019-11-27] MEDS: traMADol 50 MG TAB PO PRN (06:28)
[2019-11-27] MEDS: methylPREDNISolone INJ 125 MG/2 ML VIAL (J2930) IV SCH (06:29)
[2019-11-27] MEDS: SLF 3 ML SYR IV SCH ×3 (06:29→21:10)
[2019-11-27] MEDS ORDERED: HumuLIN R (REGULAR) INSULIN (NovoLIN R) **100U/ML** PER UNIT IV STA (07:20)
[2019-11-27] MEDS ORDERED: DEXTROSE 50% 50 ML SYRINGE IV STA (07:20)
[2019-11-27 07:55] LABS: PHOSPHORUS LEVEL 6.7 MG/DL (2.5-4.9); URIC ACID 15.7 MG/DL (3.5-7.2)
[2019-11-27] MEDS ORDERED: CALCIUM GLUCONATE 1,000 MG in D5W MINI-BAG PLUS 100 ML IV ONE ×2 (08:00→20:30)
[2019-11-27] MEDS ORDERED: FUROSEMIDE 40 MG/4 ML VIAL (J1940) IV ONE (08:00)
[2019-11-27] MEDS: HumaLOG INSULIN (NovoLOG) PER UNIT SC SCH ×4 (08:05→20:43)
[2019-11-27] MEDS ORDERED: diphenhydrAMINE 25 MG IV IV ONE ×2 (08:30→12:30)
[2019-11-27] MEDS ORDERED: FOSAPREPITANT PERIPHERAL LINE 30 MIN INFUSION IV ONE ×4 (08:30→12:30)
[2019-11-27] MEDS ORDERED: dexameTHASONE 12 MG IV IV ONE ×2 (08:30→12:30)
[2019-11-27] MEDS ORDERED: ONDANSETRON 4MG/2ML VIAL (J2405) IV ONE ×2 (08:30→12:30)
[2019-11-27] MEDS ORDERED: ACETAMINOPHEN 650 MG PO PO ONE (08:30)
[2019-11-27] MEDS ORDERED: allopurinoL 100 MG TAB PO STA (08:41)
[2019-11-27] MEDS ORDERED: allopurinoL 100 MG TAB PO SCH (09:00)
[2019-11-27] MEDS ORDERED: NS 3,000 ML IV ONE (09:00)
[2019-11-27] MEDS ORDERED: allopurinoL 300 MG TAB PO SCH ×2 (09:00→10:51)
--- NOTE | 2019-11-27 09:26 | CR ---
DATE OF CONSULTATION: 11/27/2019 INDICATION FOR CONSULTATION: Management recommendations regarding widely metastatic adenocarcinoma. 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 The patient states, "I will be happy to start chemotherapy as soon as possible. I'm short of breath, but I can get through this". HISTORY OF PRESENT ILLNESS: Noah Mireles is a very pleasant 39-year-old gentleman who reports onset of chronic back pain in the year 2001, following an injury at work. However, he was generally well, and relocated to [place] from the [facility] [place] the year 2016. Following 6 months in [place], he returned [place], at which time he began to experience recurrent episodes of cellulitis associated with leg edema. The patient's leg edema appeared to evolve in association with hypertension, and leg edema as well as cellulitis improved dramatically after he was placed on lisinopril. The patient has a history of obesity and lost weight during the years 2015 to 2016, with his weight falling from approximately 400 pounds to approximately 300 pounds. He moved back to [place] several years ago and since that time his weight has been gradually increasing. In recent months, he has developed chest discomfort which evolved into pleuritic chest pain focused primarily in the anterior chest. Mr. Mireles presented to [facility] in [place], [place], on October 15, 2019, at which time he was experiencing severe dyspnea, with pleuritic chest pain, which had worsened substantially over the prior 3 weeks. He was noted to be hypoxemic, and was admitted to [facility]. CT scan at that time showed pathologic retroperitoneal and mesenteric lymphadenopathy. He was placed on supplemental oxygen for period of time, but was ultimately discharged home. CT angiogram dated October 15, 2019 at [facility] reported no evidence of pulmonary embolus. However, mediastinal and bilateral hilar lymphadenopathy was present. CT scan of the abdomen and pelvis revealed significant retroperitoneal lymphadenopathy, with lymph nodes measuring in the range of 2 cm. On October 20, 2019, he presented to the emergency department at [facility], where CT scan was repeated and again demonstrated the pathologic lymphadenopathy. Mr. Mireles presented to medical oncology at [facility] on November 04, 2019. He was scheduled for retroperitoneal lymph node biopsy at the time of that encounter. However on November 17, 2019, prior to lymph node biopsy, he presented to the emergency department at [facility] with chief complaint of severe dyspnea. Oxygen saturation on room air was 80%. 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 Mr. Mireles underwent image-guided core biopsy of a retroperitoneal lymph node on November 20, 2019. The specimen was submitted to the histopathology department at [facility] in [place], and was reported as adenocarcinoma, metastatic, (pathology number [id number]). Immunohistochemical staining strongly suggested a gastrointestinal tract origin, although the precise site within the gastrointestinal/hepatobiliary system could not be determined. Findings were discussed with Mr. Mireles, and he expressed a desire to proceed with systemic antineoplastic therapy. The patient's case was discussed with Pulmonary Medicine, who felt the patient could not be safely discharged to home for outpatient treatment. Consequently, inpatient chemotherapy is planned. At present, Mr. Mireles' chief complaint continues to be shortness of breath, both at rest and on exertion. He has had no recent fevers or chills. ALLERGIES: The patient has no known medication allergies, but experienced severe gastrointestinal symptoms from use of Trulicity. CURRENT MEDICATIONS: Zofran 4 mg q.6 h intravenously p.r.n. nausea, Arixtra 2.5 mg subcutaneously daily, methylprednisolone 80 mg IV q.12 hours, Levemir insulin 5 units subcutaneously q.p.m., DuoNeb nebulizer therapy q.6 h p.r.n., Humalog insulin on sliding scale, lisinopril 10 mg p.o. daily (on hold). PAST MEDICAL HISTORY: The patient has past history significant for sleep apnea as well as hypertension. There is also a history of impaired glucose metabolism. He has had cellulitis of the lower extremities on two occasions and has a history of chronic low back pain. SOCIAL HISTORY: Tobacco: The patient previously used cigarettes as much as one pack per day, but quit in September 2019. Alcohol: The patient has consumed alcohol socially in the past. Illicit Drugs: No history of illicit drug use. FAMILY HISTORY: The patient's mother is alive and well at the age of 61. The patient's father is alive at the age of 67 with history of hypertension and pulmonary disease. REVIEW OF SYSTEMS: Neurologic: No history of head trauma, seizure disorder or focal neurologic deficits, aside from chronic low back pain. Respiratory: History of hypoxemia as noted. History of sleep apnea. History of prior tobacco use. No cough at present. The patient continues to have pleuritic chest pain and dyspnea at rest and requires supplemental oxygen. No hemoptysis. Cardiac: No history of myocardial infarction. No exertional chest pressure. No orthopnea. There is leg edema in the past. Gastrointestinal: No recent nausea, vomiting, abdominal pain or diarrhea. Genitourinary: No history of hematuria. No dysuria. No history of nephrolithiases. Musculoskeletal: The patient reports chronic low back pain as well as intermittent left long pain. No recent fractures. No joint effusions. Constitutional: No recent fevers or chills. Weight has recently been climbing. The remainder of the review of systems was obtained and was negative. PHYSICAL EXAMINATION: The patient is a well-developed, well-nourished, gentleman awake, alert and fully oriented, friendly and cooperative, in no acute distress, but ill in appearance. Temperature 96.7, blood pressure 128/68, pulse 98, respirations 18, pulse oximetry 92% on 8 liters by nasal cannula. Height 172.2 cm, weight 175 kg, body surface area 2.6 m2. Skin: Full turgor, anicteric and diaphoretic. HEENT Examination: Normocephalic, atraumatic. Pupils equal round and reactive to light and accommnodate. Extraocular muscles intact. Sclerae anicteric. Oropharynx without lesions. Neck: Supple, without appreciable thyromegaly. Lymphatics: No pathologic lymphadenopathy noted. Lungs: Bilateral breath sounds audible with tachypnea. No adventitial breath sounds,. No wheezes or rales appreciated. Cardiac Exam: Regular rhythm. Point of maximal impulse nondisplaced. S1, S2, without gallop, rub or murmur. Abdomen: Active bowel sounds, soft, nontender, without appreciable organomegaly. No masses appreciated. No guarding or rebound elicited. Rectal Examination: Deferred. Extremities: Without clubbing, cyanosis or edema. Neurologic Examination: Mental status intact. Cranial nerves intact. Motor and sensory grossly intact. LABORATORY DATA: Laboratory studies dated November 27, 2019 include white blood count 28,100 per microliter, hemoglobin 15.4 grams per deciliter, hematocrit 46.9%, platelet count 48,000, BUN 50, creatinine elevated at 1.64 mg per deciliter, glucose 264 mg per deciliter, uric acid markedly elevated at 15.7 mg per deciliter, phosphorus elevated at 6.7 mg per deciliter, total bilirubin 1.4 mg per deciliter, AST 135, ALT 205, alkaline phosphatase 307, albumin 2.8, fibrinogen 60 mg per deciliter, November 25, 2019, D-dimer greater than 4000, prothrombin time 22 seconds, PTT 27.5 seconds. IMPRESSION: 1. Adenocarcinoma of gastrointestinal origin. The patient has widely metastatic adenocarcinoma of unknown primary, although immunohistochemical stains showed the tumor to be of gastrointestinal primary. Diagnostic considerations include pancreatic adenocarcinoma, hepatobiliary adenocarcinoma, and colorectal adenocarcinoma. A PET/CT scan would help to identify the primary site in all likelihood. However, regardless, the patient would respond to FOLFIRINOX chemotherapy with Avastin. The patient has signed consent for treatment and this will be initiated. 2. Acute kidney injury. The patient has elevated BUN and creatinine over the past several days with hyponatremia. He is receiving corticosteroids. He appears to be volume depleted based on the evolution of the BUN and creatinine, although the fractional excretion of sodium measurement would be helpful in confirming this. In addition, uric acid level is markedly elevated, greater than 15 mg/dL, indicating tumor lysis syndrome is present even prior to therapy. The patient should receive aggressive intravenous fluid hydration. If possibly rasburicase should be given, at 0.2 mg/kg ideal body weight, and allopurinol should be initiated. Input of Nephrology would be very helpful in his management, going forward. 3. Coagulopathy. The patient has evidence of disseminated intravascular coagulation with prolonged prothrombin time, markedly depressed fibrinogen, markedly elevated D-dimers, and treatment of his underlying malignancy will likely ameliorate this. RECOMMENDATIONS: It is recommended that rasburicase be administered at this time in order to reduce the risk of renal failure prior to initiation of antineoplastic therapy. FOLFIRINOX chemotherapy is recommended with Avastin. The patient will need careful monitoring. Appropriate fluid hydration will need to be administered along with aggressive antiemetics. The patient's prognosis is poor long-term, but he may have a very favorable response, with clinical improvement expected within 14 days of initiation of therapy. Additional management recommendations will be forthcoming based on the patient's clinical status as it evolves. Granulocyte colony-stimulating factor should be administered after chemotherapy, as neutropenic sepsis will likely be catastrophic in this setting. The patient is well aware of his tenuous condition and poor prognosis. If FOLFIRINOX with Avastin is effective in treating his malignancy, this should be evident clinically within 10 to 14 days of starting therapy, if the patient can be supported for that long, without a fatal complication.
[2019-11-27] MEDS ORDERED: [UNRECOGNIZED DRUG - REMARK] IV ONE ×3 (09:30)
[2019-11-27] MEDS: DULoxetine 30 MG CAP (CYMBALTA) PO SCH (09:58)
[2019-11-27] MEDS: PANTOPRAZOLE 40MG TAB (PROTONIX) PO SCH ×2 (09:58→20:05)
[2019-11-27] MEDS: NS 1,000 ML IV SCH ×4 (10:02→23:20)
--- NOTE | 2019-11-27 10:03 | REP ---
CHEST, SINGLE VIEW: Single view of the chest is performed and compared to a prior study of 11/24/2019. Diffuse bilateral infiltrates are stable. Heart and mediastinum are unchanged. There is a right arm PICC line with the tip in the superior vena cava. IMPRESSION: Interval placement of right arm PICC line with the tip in the superior vena cava. Otherwise diffuse bilateral infiltrates are stable. Electronically Signed by Keo Khan MD 11/27/2019 10:53 A
[2019-11-27 10:06] LABS: UNFRACTIONATED HEPARIN HI DOSE 1 % (0-20); UNFRACTIONATED HEPARIN LOW DOS 2 % (0-20)
[2019-11-27 10:39] LABS: ABG BASE EXCESS -7.5 (-2.0-2.0); ABG HCO3 16.5 MEQ/L (22.0-26.0); ABG O2 SATURATION 95.5 % (95.0-99.0); ABG PARTIAL PRESSURE O2 82.3 mmHg (75.0-100.0); ABG STANDARD HCO3 18.5 MEQ/L (22.0-26.0); ABG TOTAL CO2 17.4 MEQ/L (22.0-29.0); ABG pH (ARTERIAL) 7.358 UNITS (7.350-7.450)
[2019-11-27 11:21] LABS: ALBUMIN 2.5 GM/DL (3.2-5.2); BILIRUBIN,TOTAL 1.4 MG/DL (0.2-1.0); CALCIUM LEVEL 8.5 MG/DL (8.5-10.1); CREATININE FOR GFR 1.75 MG/DL (0.70-1.30); PHOSPHORUS LEVEL 6.6 MG/DL (2.5-4.9); POTASSIUM SERUM 5.2 MEQ/L (3.5-5.1); TOTAL PROTEIN 5.6 GM/DL (6.4-8.2); URIC ACID 15.3 MG/DL (3.5-7.2)
[2019-11-27 13:05] LABS: ALBUMIN 2.7 GM/DL (3.2-5.2); BILIRUBIN,TOTAL 1.4 MG/DL (0.2-1.0); CALCIUM LEVEL 8.2 MG/DL (8.5-10.1); CREATININE FOR GFR 1.54 MG/DL (0.70-1.30); GLOMERULAR FILTRATION RATE 53.3 (>60); TOTAL PROTEIN 5.4 GM/DL (6.4-8.2)
--- NOTE | 2019-11-27 13:15 | ONC.PHACK ---
CHEMO ADMIN CHECKLIST Order Contains Pt ID: Name, Order on Chemo Order Form?: Yes Order Form Includes ALL: Correct Tx Day, Correct Date, Correct Cycle Number Pt ID on Order form Matches: Pt ID on PHA Label Med on Chemo OrderForm Matches: PHA Label, Med Used for Preparation [facility] Nov 27, 2019 13:15
[2019-11-27] MEDS ORDERED: BEVACIZUMAB IV ONE (13:30)
[2019-11-27] MEDS ORDERED: NS IV ONE (13:30)
[2019-11-27] MEDS: ACETAMINOPHEN 650 MG PO PO ONE (13:43)
[2019-11-27] MEDS ORDERED: DEXAMETHASONE IV PRN (14:00)
[2019-11-27] MEDS ORDERED: FAMOTIDINE (20MG/2ML) IV IV PRN (14:00)
[2019-11-27] MEDS ORDERED: ALBUTEROL SULFATE (2.5MG/0.5ML) NEB INH PRN (14:00)
[2019-11-27] MEDS ORDERED: EPINEPHrine (1MG/ML) IV IM PRN (14:00)
[2019-11-27] MEDS ORDERED: diphenhydrAMINE (50MG/ML) IV IV PRN (14:00)
[2019-11-27] MEDS ORDERED: ATROPINE SULF 0.4 MG/ML 1ML VIAL (J0461) IV ONE (14:15)
[2019-11-27] MEDS ORDERED: ATROPINE SULF 0.4 MG/ML 1ML VIAL (J0461) IV PRN (14:30)
[2019-11-27] MEDS ORDERED: IRINOTECAN HYDROCHLORIDE IV ONE (15:00)
[2019-11-27] MEDS ORDERED: D5W IV ONE ×3 (15:00→16:30)
[2019-11-27 16:07] LABS: HEMOGLOBIN A1c 8.6 %
[2019-11-27 16:10] LABS: INR 1.65; PROTHROMBIN TIME 19.2 SECONDS (11.8-14.0)
[2019-11-27 16:10] LABS: CHOLESTEROL LEVEL 315 MG/DL (<200); CHOLESTEROL RISK RATIO 11.666 (<5); HDL CHOLESTEROL 27 MG/DL (>40); NON-HDL-C 288 MG/DL; TRIGLYCERIDES LEVEL 602 MG/DL (<150)
[2019-11-27 16:11] LABS: ALBUMIN 2.6 GM/DL (3.2-5.2); BILIRUBIN,TOTAL 1.4 MG/DL (0.2-1.0); CALCIUM LEVEL 8.4 MG/DL (8.5-10.1); CREATININE FOR GFR 1.62 MG/DL (0.70-1.30); GLOMERULAR FILTRATION RATE 50.2 (>60); PHOSPHORUS LEVEL 6.7 MG/DL (2.5-4.9); POTASSIUM SERUM 5.4 MEQ/L (3.5-5.1); TOTAL PROTEIN 5.6 GM/DL (6.4-8.2)
[2019-11-27 16:11] LABS: PARTIAL THROMBOPLASTIN TIME 37.7 SECONDS (25.0-38.4)
[2019-11-27 16:26] LABS: APPEARANCE, URINE HAZY (CLEAR); BACTERIA, URINE AUTO NEGATIVE (NEGATIVE); BILIRUBIN, URINE AUTO NEGATIVE (NEGATIVE); BLOOD, URINE BLOOD NEGATIVE (NEGATIVE); COLOR, URINE YELLOW (YELLOW); GLUCOSE, URINE (UA) AUTO NEGATIVE (NEGATIVE); GRANULAR CAST, URINE AUTO 1 /LPF; KETONE, URINE AUTO NEGATIVE (NEGATIVE); LEUKOCYTE ESTERASE, URINE AUTO NEGATIVE (NEGATIVE); MUCUS, URINE SMALL (NEGATIVE); NITRITE, URINE AUTO NEGATIVE (NEGATIVE); PROTEIN, URINE AUTO NEGATIVE (NEGATIVE); RBC, URINE AUTO 1 /HPF (0-3); SPECIFIC GRAVITY URINE AUTO 1.018 (1.002-1.035); SQUAMOUS EPITHELIAL CELL UR AU 0 /HPF (0-6); UROBILINOGEN, URINE AUTO 0.2 mg/dL (0.0-2.0); WBC, URINE AUTO 2 /HPF (0-3)
[2019-11-27] MEDS ORDERED: OXALIPLATIN IV ONE (16:30)
[2019-11-27] MEDS ORDERED: LEUCOVORIN CALCIUM IV ONE (16:30)
[2019-11-27] MEDS ORDERED: FUROSEMIDE 100 MG/10 ML VIAL (J1940) IV ONE (17:00)
[2019-11-27] MEDS: methylPREDNISolone INJ 40 MG/1 ML VIAL (J2920) IV SCH (17:40)
[2019-11-27] MEDS: SIMETHICONE 40MG/0.6ML DROPS 30ML PO PRN (17:44)
[2019-11-27] MEDS ORDERED: SODIUM CHLORIDE 0.9% INJ 10 ML SYR IV PRN (18:00)
[2019-11-27] MEDS ORDERED: FLUOROURACIL IV ONE (18:30)
[2019-11-27] MEDS ORDERED: SODIUM CHLORIDE IV ONE (18:30)
--- NOTE | 2019-11-27 19:11 | IPNPDOC ---
Text Note Date of Service The patient was seen on 11/27/19. NOTE SUBJECTIVE: Following his PICC placement on 11/26/19, patient remained sedated and SOB. He was then transferred to the PCU and titrated up to 35 L on Vapotherm. Patient continued to complain of SOB and lethargy. AM labs were concerning for Tumor lysis syndrome. Pt was started on aggressive fluid hydration and PO allopurinol as pharmacy does not carry Rasburicase. Attempt was made to transfer to [facility] for Rasburicase and further management. Unfortunately patient declined transfer. Nephrology was consulted for worsening renal failure and assistance with tumor lysis management. Patient was transferred to the ICU for immediate initiation of in-patient chemotherapy using his PICC line. Critical care team to place a trialaysis catheter this evening for possible CVVH. Chemotherapy infusion is ongoing. OBJECTIVE: VITAL SIGNS: See below GENERAL APPEARANCE: Interviewed and examined in his hospital room. Patient was found to be sitting up in bed, NAD HEENT: Normocephalic, atraumatic. Mucous members moist and pink, no obvious JVD. CARDIOVASCULAR: Regular rate and rhythm. No murmurs, rubs or gallops. Radial pulses are intact. Trace lower extremity edema. LUNGS: Diminished lung sounds in the bases bilaterally, faint wheezes. Pt able to speak in full sentences, no rales or rhonchi appreciated. ABDOMEN: Obese, soft, nontender, nondistended without signs of guarding or obvious organomegaly. MUSCULOSKELETAL: Range of motion is intact in all 4 extremities. EXTREMITIES: No lower extremities bilaterally, no calf tenderness. Pulses 2+ in both upper and lower extremities bilaterally. NEUROLOGICAL: No dysarthria, aphasia. No focal neurologic deficits. PSYCHOLOGICAL: Mood and affect is depressed, appropriate given current clinical condition and prognosis ASSESSMENT: Patient's 49 years old male with past history of morbid obesity, obstructive sleep apnea presented to the hospital with shortness of breath. Patient has been on high dose steroids and antibiotics with only minimal improvement in respiratory status. 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 Answer tumor markers including CA 199 and CEA are elevated. The patient's platelets have continued to drop, concerning for DIC. All potentially offending medications have been stopped. D-dimer found to be elevated, fibr inogen is low. Laboratory results the morning of 11/26 indicated tumor lysis syndrome. He was immediately started on aggressive hydration and simultaneous diuresis. Allopurinol initiated as Rasburicase is not carried in-house, though it is available via brand director. Attempts for transfer where made and patient was accepted by [facility]. Unfortunately, patient declined transfer. Both oncology and respiratory remain on board. Through their efforts, patient was started on in-patient chemotherapy treatment. A trialysis catheter will be placed by intervention manager this evening for Q4H lab draws. Nephrology was consulted for impending CVVH need. PLAN: #Acute hypoxemic respiratory failure, currently on 40L vapotherm. Likely 2/2 diffuse carcinomatosis of lungs. Diffusion capacity greatly decreased * Continue oxygen therapy to maintain saturation >88% #Tumor Lysis Syndrome * Continue aggressive hydration and Lasix * Continue to monitor Phos, Uric acid, BMP Q4H * Will place trialysis line for possible CVVHD * Continue to monitor urine output #Malignancy of unknown source, most likely gastrointestinal * CT chest, abdomen, pelvis showed mediastinal, retroperitoneal lymphadenopathy and multiple liver lymph hypodense lesions * Pathology report from [facility] demonstrates really differentiated adenocarcinoma with patchy comedo-type necrosis. Nonspecific for primary site, possible primary is GI tract and less likely pancreatobiliary tract. * LDH elevated, HCG elevated. PSA within normal limit, alpha-fetoprotein within normal limits. HIV negative. * CEA elevated at 302.1, CA-19-9 elevated at 30,409.7 * Chemotherapy via PICC, continuous transfusion over the weekend #ALANNAH, concern for acute renal failure * BUN/Cr increased from 28/1.17-32/1.39 on 11/22. * BUN/Cr today of 37/1.39. * Suspect to be 2/2 Tumor Lysis, treatment plan as above. * Nephrology consulted for possible need for CVVHD #Thrombocytopenia * Suspecting DIC, given patient's widespread malignancy, increased d-dimer and decreased fibrinogen. * Platelets ordered prior to trialysis catheter placement. #Diabetes type 2/hyperglycemia * Hemoglobin A1c 8.8. * Patient has never been diagnosed with diabetes prior to admission. * However patient was on course of steroids for past 1 month. * Currently on high-dose steroids which will increase BSL. * Insulin sliding scale, Levemir 5 units daily at bedtime. #Allergic asthma * Continue inhalers and home meds #Hypertension * Blood pressures under control, continue lisinopril #Obstructive sleep apnea/obesity hypoventilation syndrome * Patient will benefit with bariatric surgery * Sleep study as an outpatient #Bilateral low back pain * Percocet and Ultram for pain control #Transaminitis * Unclear etiology at this time, liver mets vs. tumor lysis * AST/ALT of 81/147 * Total and Direct Bili, 1.2 and 0.4 respectively. * GGT of 768, Alk Phos of 221 CODE STATUS: FULL CODE IShay, have independently examined this patient and performed my own physical exam, as well as reviewed the documentation. I have discussed in detail with the resident / student the findings and plan of treatment as documented by the resident / student VSJeferson, I+O VS, Jeferson, I+O Laboratory Tests 11/27/19 04:35 11/27/19 10:37 11/27/19 12:31 11/27/19 15:39 Vital Signs Date Time Temp Pulse Resp B/P (MAP) Pulse Ox O2 Delivery O2 Flow Rate FiO2 11/27/19 16:01 96.1 128 32 100/55 (70) 95 HVNI-Vapotherm 40.0 11/27/19 16:00 100 I&O- Last 24 Hours up to 6 AM 11/27/19 06:00 Intake Total 660 ml Output Total 300 ml Balance 360 ml JULY HAMMOND DO Nov 27, 2019 19:11 SHAY EDUARDO DO Nov 29, 2019 11:30
[2019-11-27] MEDS ORDERED: LIDOCAINE 1% MDV 20ML VIAL As Ordered ONE (19:36)
[2019-11-27] MEDS: HEPARIN 1,000 UNITS/ML 10ML VIAL (FOR RADIOLOGY& DIALYSIS ONLY)(J1644-10) IV PRN (20:05)
[2019-11-27] MEDS: LEVEMIR (INSULIN DETEMIR) 1 UNITS/0.01ML SC SCH (20:06)
--- NOTE | 2019-11-27 20:21 | RO ---
DATE OF PROCEDURE: 11/27/2019 HEMODIALYSIS CATHETER PROCEDURE NOTE INDICATION: Acute renal failure and vascular access. PREPROCEDURE DIAGNOSIS: Acute renal failure. POSTPROCEDURE DIAGNOSIS: Acute renal failure. PROCEDURE: central line insertion SURGEON: Dr. Qi Salinas Consent was obtained from the patient prior to the procedure. Indications, risks and benefits were explained at length. DESCRIPTION OF PROCEDURE: A central line insertion practice form was completed by independent observer. A time-out was performed. Full sterile technique was maintained throughout procedure, including surgical cap, mask, protective eyewear, full gown and sterile gloves. The patient was placed in Trendelenburg position. The right neck region was prepped using chlorhexidine scrub and draped in sterile fashion using a fenestrated drape and a sterile probe cover was employed. The right internal jugular vein was identified using ultrasound. Anesthesia was achieved over the vein using 1% lidocaine. Using real-time out of plane guidance, the introducer needle was inserted into the right internal jugular vein under direct ultrasound visualization. Venous blood was withdrawn. The syringe was removed and a guidewire was advanced into the introducer needle. The introducer needle was removed over the guidewire. A small incision was made at the skin surface with a scalpel and double dilation was achieved over the guidewire. After appropriate dilation was obtained, the dilator was exchanged over the wire for a Trialysis hemodialysis catheter. The wire was removed and the catheter was sutured in place. A sterile chlorhexidine-impregnated dressing was placed over the catheter at the insertion site. The patient tolerated the procedure without any hemodynamic compromise. At time of procedure completion, all ports were aspirated and flushed properly. Postprocedure chest x-ray was pending. Estimated blood loss is less than 3 mL. Heparin was instilled into the dialysis port postprocedure. [facility]
--- NOTE | 2019-11-27 20:36 | REP ---
Clinical: Line placement. Comparison: 11/27/2019. Findings: Double-lumen central line via right internal jugular vein extends into the SVC. Right PICC line in stable position extending into the SVC. Mediastinum and cardiac silhouette are normal. Diffuse bilateral alveolar and reticulonodular infiltrates are essentially unchanged. No pneumothorax. No obvious effusion. Impression: 1. Right IJ line and right PICC line in satisfactory position. 2. Diffuse bilateral alveolar and interstitial infiltrates unchanged. Electronically Signed by Kostas Orozco MD 11/27/2019 08:28 P
[2019-11-27 20:48] LABS: IONIZED CALCIUM 4.1 MG/DL (4.5-5.3)
[2019-11-27 21:19] LABS: ALBUMIN 2.3 GM/DL (3.2-5.2); ALT/SGPT 200 U/L (12-78); BILIRUBIN,TOTAL 1.5 MG/DL (0.2-1.0); BLOOD UREA NITROGEN 45 MG/DL (7-18); CALCIUM LEVEL 6.9 MG/DL (8.5-10.1); CARBON DIOXIDE LEVEL 19 MEQ/L (21-32); CHLORIDE LEVEL 99 MEQ/L (98-107); CREATININE FOR GFR 1.33 MG/DL (0.70-1.30); GLOMERULAR FILTRATION RATE > 60.0 (>60); GLUCOSE, FASTING 310 MG/DL (70-100); PHOSPHORUS LEVEL 5.7 MG/DL (2.5-4.9); POTASSIUM SERUM 4.2 MEQ/L (3.5-5.1); SODIUM LEVEL 132 MEQ/L (136-145); TOTAL PROTEIN 4.9 GM/DL (6.4-8.2); URIC ACID 12.2 MG/DL (3.5-7.2)
[2019-11-27] MEDS ORDERED: diltiaZEM 125 MG in NS 100 ML IV SCH ×2 (21:45→21:56)
[2019-11-27] MEDS ORDERED: NS 500 ML IV ONE (21:45)
[2019-11-27] MEDS: SODIUM BICARBONATE 325 MG TAB PO SCH (22:07)
[2019-11-27] MEDS: PATIROMER SORBITEX CALCIUM 8.4 GM POWDER PACKET (VELTASSA) PO SCH (22:07)
[2019-11-27] MEDS ORDERED: CALCIUM CARBONATE 500 MG CHEW U/D PO ONE (23:15)
--- NOTE | 2019-11-27 23:17 | CR ---
DATE OF CONSULTATION: 11/27/2019 REQUESTING PHYSICIAN: Dr. Eduardo Ball. CONSULTING PHYSICIAN: Dr. Velez REASON FOR CONSULTATION: Management of tumor lysis syndrome. CHIEF COMPLAINT: The patient presented to the hospital on November 17, 2019 with progressive shortness of breath. HISTORY OF PRESENT ILLNESS: Mr. Noah Mireles is a 39-year-old male who is an employee at [employer]. He has a past medical history of morbid obesity, obstructive sleep apnea and hypertension with prediabetes. He presented to [employer] [employer] on November 17, 2019 with progressive shortness of breath. Before that, he had already visited two hospitals, including [facility] in [place] on October 15, 2019 and at [facility] on October 20, 2019, and at both of these hospitals, the presenting complaint was progressive shortness of breath. And at both of these hospitals, he got imaging done where he was found to have retroperitoneal and mesenteric along with mediastinal lymphadenopathy. No further testing of the lymphadenopathy was done. The patient was referred to hematology/oncology as outpatient, and he was already scheduled to have a lymph node biopsy done at [facility] [employer] as outpatient. However, because of his severe progressive shortness of breath, he presented to the emergency room before his biopsy could be done. He was admitted under the hospitalist service. 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 Most likely source is somewhere in the abdomen. The patient was seen by hematology/oncology; they recommended starting the patient on chemotherapy. However, before he could even start the chemotherapy, the patient was found to be in tumor lysis syndrome with a potassium of 5.4 today morning, uric acid of 15.7, phosphorus of 6.7, and a calcium of 8.8. Nephrology service was called for further help in the management of this patient and treatment of tumor lysis syndrome. His creatinine on arrival was 1.1, which has bumped up to 1.6 on today's labs. The patient has already been started on aggressive IV fluid hydration by the primary team. I saw and evaluated the patient today morning at the bedside in the progressive care unit. The patient was in significant respiratory distress, and he was using the Vapotherm for his respiratory distress. The patient showed his intention to undergo aggressive chemotherapy, including hemodialysis if needed. Later on, because of his worsening shortness of breath and need to start chemotherapy immediately in the hospital, the patient was transferred to ICU. PAST MEDICAL HISTORY: Past medical history of morbid obesity, hypertension, prediabetes, obstructive sleep apnea. PAST SURGICAL HISTORY: Recent CT guided lymph node biopsy this admission. He has a history of cholecystectomy and a history of appendectomy in the past. ALLERGIES: The patient is allergic to DULAGLUTIDE. FAMILY HISTORY: No significant family history of end-stage renal disease requiring hemodialysis. 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 He denies any illicit drug abuse. REVIEW OF SYSTEMS: Constitutional: Patient reports significant weight loss. Eyes: He denies any blurry vision, double vision. Ears, Nose, Throat (ENT): He denies any dysphagia, odynophagia. Cardiovascular: He reports palpitations and shortness of breath on mild exertion. Respiratory: He reports progressive shortness of breath over the last few weeks requiring high-flow oxygen. Gastrointestinal (GI): He reports bloating and decreased appetite. Genitourinary: He denies any dysuria or hematuria. Musculoskeletal: He denies any muscle weakness. Skin: He denies any rashes. Psych: He denies any depression or anxiety. Endocrine: He denies any history of hyperthyroidism or hypothyroidism. He does report a history of prediabetes. Hematology/Oncology: He reports recent diagnosis of adenocarcinoma, metastatic. All other review of systems is negative. PHYSICAL EXAMINATION: General: The patient is awake, alert, oriented times three, morbidly obese, sitting up in the bed. Vital signs: Temperature is 97 degrees Fahrenheit, blood pressure 125/70, pulse is 105, respiratory rate of 26, saturating 95% on the high-flow nasal cannula with 40% FiO2. Head and neck exam: Extraocular muscles intact. Pupils equally round and reactive to light. Mucous membranes are moist. Neck is supple. I could not appreciate any jugular venous distention (JVD). Cardiovascular: S1, S2, tachycardia. Trace edema of the bilateral lower extremities. Respiratory: Mildly decreased breath sounds bilaterally at the bases, otherwise no active rales or rhonchi. The patient is wearing high-flow nasal cannula. GI: Abdomen is distended. I could not appreciate any organomegaly. Genitourinary: I could not palpate the bladder. Musculoskeletal: No clubbing or cyanosis. Trace edema of the bilateral lower extremities. 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 Power is 5/5 in all extremities. Skin: No rashes or ulcers. AV access: The patient has a peripherally inserted central catheter (PICC) line in the right upper arm. LAB REVIEW: CBC showed a WBC of 28.1, hemoglobin is 15.4, platelets are 48, INR is 1.6. PT is 19.2. D-dimer is more than 4000. Urinalysis done today did not show any proteinuria or hematuria. ABG done today morning showed a pH of 7.35, pCO2 of 30, pO2 of 82, bicarb is 16.5, O2 saturation is 95.5%. BMP done today morning showed sodium 129, potassium 5.4, chloride 94, bicarbonate 19, BUN 50, creatinine 1.6, glucose 264, uric acid 15.7, calcium 8.8, phosphorus 6.7, total bilirubin 1.4, AST 135, ALT 204, alkaline phosphatase is 307, total protein 5.6, albumin is 2.8. Immunology: Rheumatoid factor is negative. NELI is negative. Serology: HIV is negative. Aspergillus is negative. Microbiology: Blood cultures are negative. Respiratory viral panel is negative. IMAGING: A chest x-ray was done which showed right IJ line and right PICC line in satisfactory position, diffuse bilateral alveolar and interstitial infiltrates are unchanged. CURRENT INPATIENT MEDICATIONS: The patient's current medications include bevacizumab, which is Avastin, 800 mg IV times one dose, calcium gluconate 1 gram IV times one dose today morning, fluorouracil 6350 mg IV, Emend injection 150 mg IV times one dose, Camptosar 400 mg IV times one dose, leucovorin calcium 1 gram IV times one dose, sodium chloride 250 mg IV per hour, oxaliplatin 200 mg IV times one dose, Tylenol 650 mg by mouth times one dose, albuterol as needed, DuoNebs around the clock every 6 hours. He was on allopurinol 600 mg by mouth daily; I have changed it to 200 mg by mouth every 8 hours. Cymbalta 30 mg by mouth daily. He has been started on Neupogen 480 mcg subcu daily, Arixtra 2.5 mg subcu daily. He was given Lasix 40 mg IV times one dose in the morning. Insulin Levemir 5 units subcu nightly. Insulin regular 10 units IV one dose was given because of hyperkalemia. He was on lisinopril 10 mg by mouth daily, which was stopped. He is on Solu-Medrol 40 mg IV every 12 hours, Zofran as needed, Percocet as needed, Protonix 40 mg by mouth twice a day, simethicone 20 mg four times a day as needed gas, and tramadol 50 mg by mouth every 8 hours as needed for moderate pain. ASSESSMENT: 39-year-old male with metastatic adenocarcinoma with likely primary from the abdomen, acute hypoxemic respiratory failure, tumor lysis syndrome, acute nonoliguric kidney injury, diabetes mellitus - type 2. PLAN: 1. Tumor lysis syndrome. The patient has lab evidence of tumor lysis syndrome including acute renal failure, hyperkalemia, hyperphosphatemia,hypocalcemia and hyperuricemia. I agree with aggressive IV fluid hydration with normal saline. Because of mild lower extremity edema, the patient was already given Lasix 40 mg in the morning. I gave him another dose of 80 mg in the evening. Rasburicase is not available in the hospital. I have ordered G6PD levels in anticipation for use of Rasburicase once it is available. At this time, we will continue using allopurinol 200 mg by mouth every 8 hours. Continue to monitor serial labs every 4 hours. If patient becomes oliguric or develops worsening renal failure, metabolic acidosis or intractable hyperkalemia or a calcium phosphorus product of more than 70, then he will be started on continuous renal replacement therapy (CRRT). I have already informed the pulmonary critical care service that the patient would need a dialysis catheter placement if we see evidence of worsening renal failure. Avoid aggressive use of IV calcium in this patient. His phosphorus level is very high. Calcium can cause precipitation of calcium phosphate salt, and it can make renal failure worse. For hyperphosphatemia, I am going to start the patient on calcium-based phosphorus binders, and for hyperkalemia, the patient is being started on daily Veltassa. 2. Normal anion gap metabolic acidosis. It is secondary to acute renal failure, bicarbonate level is within the acceptable range. No need of IV bicarb administration or alkalization of the urine at this time. However, if the patient becomes more acidotic, I would have a low threshold to start this patient on hemodialysis. 3. Metastatic adenocarcinoma. The patient was already seen by hematology/oncology, and the case was discussed with hematology by myself today. He has been started on chemotherapy. He will be on 5-fluorouracil for the next 2 days. If we have to start the patient on CRRT, we do not need to modify the dose of 5-FU. I would leave the rest of the management, including possible leukopenia and thrombocytopenia up to hematology/oncology service. 4. Acute hypoxemic respiratory failure. It is secondary to lymphangitic spread of metastatic adenocarcinoma. Patient is already on high-flow nasal cannula. He is getting steroids and nebulizations and hopefully if he responds to chemotherapy, his symptoms would get better. 5. Diabetes mellitus, type 2. The patient's A1c on this admission is 8.8. He is currently getting insulin sliding scale and long-acting insulin. Avoid use of metformin in this patient at this time because of acute renal failure and metabolic acidosis. 6. Elevated transaminitis. It is most likely secondary to metastatic spread of the adenocarcinoma. Thank you for involving me in the care of this patient. I shall be happy to follow the patient along with you tomorrow morning. Total critical care time spent in the management of this patient today morning in the PCU and again in the evening in ICU is 1 hour and 20 minutes; that does not include any procedures. MTDD
[2019-11-28] VITALS (24 sets, daily range): BP systolic 99–140; BP diastolic 55–90; O2SAT 89–97
[2019-11-28 00:40] LABS: IONIZED CALCIUM 4.4 MG/DL (4.5-5.3)
[2019-11-28 01:07] LABS: ALBUMIN 2.4 GM/DL (3.2-5.2); ALT/SGPT 240 U/L (12-78); BILIRUBIN,TOTAL 1.8 MG/DL (0.2-1.0); BLOOD UREA NITROGEN 43 MG/DL (7-18); CALCIUM LEVEL 7.7 MG/DL (8.5-10.1); CARBON DIOXIDE LEVEL 23 MEQ/L (21-32); CHLORIDE LEVEL 97 MEQ/L (98-107); CREATININE FOR GFR 1.28 MG/DL (0.70-1.30); GLOMERULAR FILTRATION RATE > 60.0 (>60); GLUCOSE, FASTING 299 MG/DL (70-100); PHOSPHORUS LEVEL 5.9 MG/DL (2.5-4.9); POTASSIUM SERUM 4.7 MEQ/L (3.5-5.1); SODIUM LEVEL 132 MEQ/L (136-145)
[2019-11-28] MEDS: IPRATROPIUM 0.5MG/ALBUTEROL 2.5MG INH SOL UD 3ML (DUONEB)(J7620) INH SCH ×5 (01:42→19:56)
[2019-11-28] MEDS: NS 1,000 ML IV SCH ×2 (04:40→08:21)
[2019-11-28 04:51] LABS: IONIZED CALCIUM 4.3 MG/DL (4.5-5.3)
[2019-11-28 05:17] LABS: ALBUMIN 2.3 GM/DL (3.2-5.2); ALT/SGPT 232 U/L (12-78); BILIRUBIN,TOTAL 1.4 MG/DL (0.2-1.0); BLOOD UREA NITROGEN 45 MG/DL (7-18); CALCIUM LEVEL 7.5 MG/DL (8.5-10.1); CARBON DIOXIDE LEVEL 22 MEQ/L (21-32); CHLORIDE LEVEL 98 MEQ/L (98-107); CREATININE FOR GFR 1.15 MG/DL (0.70-1.30); GLOMERULAR FILTRATION RATE > 60.0 (>60); GLUCOSE, FASTING 327 MG/DL (70-100); PHOSPHORUS LEVEL 6.1 MG/DL (2.5-4.9); POTASSIUM SERUM 4.8 MEQ/L (3.5-5.1); SODIUM LEVEL 132 MEQ/L (136-145); TOTAL PROTEIN 4.8 GM/DL (6.4-8.2); URIC ACID 12.1 MG/DL (3.5-7.2)
[2019-11-28] MEDS: allopurinoL 100 MG TAB PO SCH ×2 (05:48→15:13)
[2019-11-28] MEDS: methylPREDNISolone INJ 40 MG/1 ML VIAL (J2920) IV SCH ×2 (05:48→18:23)
[2019-11-28] MEDS: SLF 3 ML SYR IV SCH ×3 (05:49→21:30)
[2019-11-28] MEDS: SODIUM CHLORIDE 0.9% INJ 10 ML SYR IV SCH ×2 (05:49→18:00)
[2019-11-28] MEDS: PERCOCET 5MG/325MG TAB PO PRN ×2 (05:55→18:20)
[2019-11-28 06:46] LABS: BASO # 0.1 10^3/uL (0.0-0.2); BASO % 0.3 % (0.0-1.0); HEMATOCRIT 36.7 % (42.0-52.0); LYMPH # 0.3 10^3/uL (1.5-5.0); LYMPH % 1.7 % (24.0-44.0); MEAN CORPUSCULAR HEMOGLOBIN 26.4 pg (27.0-33.0); MEAN CORPUSCULAR HGB CONC 32.7 g/dl (32.0-36.5); MEAN CORPUSCULAR VOLUME 80.7 fl (80.0-96.0); MONO # 0.8 10^3/uL (0.0-0.8); MONO % 3.9 % (0.0-5.0); NEUTROPHILS # 17.6 10^3/uL (1.5-8.5); NEUTROPHILS % 89.3 % (36.0-66.0); RED BLOOD COUNT 4.55 10^6/uL (4.30-6.10); WHITE BLOOD COUNT 19.7 10^3/uL (4.0-10.0)
[2019-11-28 06:55] LABS: PLATELET COUNT, AUTOMATED 44 10^3/uL (150-450)
[2019-11-28] MEDS ORDERED: CALCIUM ACETATE 667 MG GELCAP PO SCH (08:00)
[2019-11-28] MEDS: LIDOCAINE 5% (LIDODERM) PATCH TD SCH (09:00)
[2019-11-28] MEDS: CALCIUM CARBONATE 500 MG CHEW U/D PO SCH ×3 (09:05→18:00)
[2019-11-28] MEDS: SODIUM BICARBONATE 325 MG TAB PO SCH ×4 (09:05→21:03)
[2019-11-28] MEDS: HumaLOG INSULIN (NovoLOG) PER UNIT SC SCH ×4 (09:05→21:02)
[2019-11-28] MEDS: DULoxetine 30 MG CAP (CYMBALTA) PO SCH (09:05)
[2019-11-28] MEDS: PANTOPRAZOLE 40MG TAB (PROTONIX) PO SCH ×2 (09:05→21:03)
[2019-11-28] MEDS: FONDAPARINUX SODIUM 2.5 MG/0.5 ML SYR (J1652 PER 0.5MG) SC SCH (09:06)
[2019-11-28] MEDS: HEPARIN 1,000 UNITS/ML 10ML VIAL (FOR RADIOLOGY& DIALYSIS ONLY)(J1644-10) IV PRN ×2 (09:08→10:55)
[2019-11-28 09:31] LABS: IONIZED CALCIUM 4.4 MG/DL (4.5-5.3)
[2019-11-28 09:48] LABS: INR 2.79; PROTHROMBIN TIME 29.3 SECONDS (11.8-14.0)
[2019-11-28 09:49] LABS: FIBRINOGEN 177 MG/DL (221-452)
[2019-11-28] MEDS ORDERED: LORazepam 2 MG/ML VIAL (J2060) As Ordered ONE (09:55)
[2019-11-28] MEDS: LORazepam 2 MG/ML VIAL (J2060) IV PRN (10:00)
[2019-11-28 10:03] LABS: ALBUMIN 2.4 GM/DL (3.2-5.2); ALT/SGPT 264 U/L (12-78); BILIRUBIN,TOTAL 1.6 MG/DL (0.2-1.0); BLOOD UREA NITROGEN 46 MG/DL (7-18); CALCIUM LEVEL 7.5 MG/DL (8.5-10.1); CARBON DIOXIDE LEVEL 23 MEQ/L (21-32); CHLORIDE LEVEL 96 MEQ/L (98-107); CREATININE FOR GFR 1.33 MG/DL (0.70-1.30); GLOMERULAR FILTRATION RATE > 60.0 (>60); GLUCOSE, FASTING 386 MG/DL (70-100); PHOSPHORUS LEVEL 6.4 MG/DL (2.5-4.9); POTASSIUM SERUM 5.5 MEQ/L (3.5-5.1); SODIUM LEVEL 131 MEQ/L (136-145); TOTAL PROTEIN 5.2 GM/DL (6.4-8.2); URIC ACID 11.4 MG/DL (3.5-7.2)
[2019-11-28] MEDS ORDERED: FUROSEMIDE 100 MG/10 ML VIAL (J1940) IV ONE ×2 (10:45→17:00)
[2019-11-28] MEDS ORDERED: PHYTONADIONE 5 MG TAB PO ONE (11:00)
[2019-11-28 11:07] LABS: PARTIAL THROMBOPLASTIN TIME > 240.0 SECONDS (25.0-38.4)
--- NOTE | 2019-11-28 11:14 | CCN ---
DATE: 11/28/2019 SUBJECTIVE: Patient was seen and examined this morning at bedside. Patient appears more short of breath and states he is feeling he is having a hard time breathing. He also notes he has been coughing more and feels that there are things stuck in his chest, that he cannot cough up. He states he continues to have some low back pain, which has been stable throughout his admission. Patient also notes he continues to have decreased appetite/taste and has only really been able to eat peaches. OBJECTIVE: VITAL SIGNS: Temperature 96.9, heart rate 96, respiratory rate 24, blood pressure 124/70 with a MAP of 88, pulse ox 91 on Vapotherm at 40 liters with FiO2 of 100% with a Ventimask over the nasal cannula. GENERAL: Appears alert and awake, somewhat uncomfortable lying in bed with mildly labored breathing on Vapotherm and overlying mask to maintain saturations. HEENT: Normocephalic atraumatic. Moist mucous membranes. CARDIOVASCULAR: Regular rate and rhythm. No murmurs or rubs. No gallops appreciated. LUNGS: Diminished lung sounds bilaterally with coarse rhonchi bilaterally. ABDOMEN: Obese, soft, mildly distended. Bowel sounds present. EXTREMITIES: Trace edema in bilateral lower extremities. NEUROLOGIC: No focal neurological deficit is appreciated. PSYCHOLOGIC: Mood and affect are somewhat depressed, which is appropriate for his current clinical condition. LABORATORY FINDINGS: White blood cell count 19.7, hemoglobin 12.0, hematocrit 36.7, platelet count 44. Differential shows 89.3 neutrophils, immature platelet fraction of 14.4. Sodium 132, potassium 4.8, chloride 98, carbon dioxide 22, BUN 45, creatinine 1.15, fasting glucose 327, uric acid 12.1, calcium 7.5, with ionized calcium 4.3, phosphorus 6.1. Total bilirubin 1.4, AST 199, ALT 232, alkaline phosphatase 375, total protein 4.8, albumin 2.3. PT 29.3, INR 2.79, APTT is not yet recorded, fibrinogen 177. IMAGING: CXR this morning shows a trialysis catheter and PICC line in position in SVC. Bilateral diffuse infiltrates appear unchanged from prior CXR. ASSESSMENT: 39-year-old male with a past medical history of morbid obesity, noncompliance, obstructive sleep apnea who presented initially with a 2-month history of shortness of breath and was found to have metastatic cancer of unknown origin, likely gastrointestinal (GI) or hepatobiliary based on pathology results from retroperitoneal node biopsy who has had worsening hypoxia and is now requiring Vapotherm at 40 lpm with 100% FiO2. PLAN: 1. Acute hypoxemic respiratory failure likely secondary to metastatic carcinomatosis of the lungs. He is currently on Vapotherm and saturating appropriately, but prognosis remains guarded and he may require endotracheal intubation. He does remain a FULL CODE at this time. He has been started on chemotherapy for his metastatic cancer but continues to require increasing amounts of oxygen. There is some concern for pulmonary embolus or tumor emboli. We will hold off on a CT angiogram at this point due concern for renal failure, and due to his respiratory status but we will obtain an a stat echocardiogram to evaluate for signs of right heart strain which may indicate pulmonary embolism (PE) as he is at high risk for thromboembolic disease. 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 Patient's hemoglobin has been trending down as well, and he is at risk of bleeding due to his thrombocytopenia and DIC. Abdominal ultrasound ordered to rule out bleeding in his abdomen before starting any anticoagulation. We will continue to taper down on his steroids, which were initially started to treat empirically for sarcoidosis. His increased cough and rhonchorous breath sounds indicate more mucous production, we will start hypertonic saline nebulizers with acapella treatment to help clear these secretions. His declining respiratory status is concerning for possible need for endotracheal intubation. 2. Atrial fibrillation with rapid ventricular rate (RVR): Patient went into atrial fibrillation overnight and was treated with diltiazem. This morning, patient is back in sinus rhythm. Atrial fibrillation could be related to increasing hypoxia or could be related to possible PE as discussed above. We will consider anticoagulation, but need to address possible bleeding prior to starting any anticoagulation. 3. 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 His fibrinogen did improve after transfusino of cryoprecipitate he received two days ago. We will continue to trend the fibrinogen and coagulation studies. Will transfuse another 1 unit of platelets for his thrombocytopenia prior to starting anticoagulation. Will trend H/H and transfuse as needed 4. Metastatic cancer, suspect adenocarcinoma of GI tract based on pathology findings: He is currently undergoing treatment per oncology. He does appear to be in tumor lysis syndrome, although his laboratory markers are improving with his uric acid trending down, stable potassium, and stable phosphorus. We will continue to follow his labs. Patient was given aggressive fluid hydration and allopurinol. Will hold IVF due to concern for possible fluid overload contributing to worsening hypoxemia although CXR this morning appears unchanged from priors.. We were also able to obtain Rasburicase today to begin further treatment. 5. Acute renal failure: Likely related to tumor lysis syndrome, which is being treated as above. BUN and creatinine have been trending down. Nephrology is consulted and patient now has a hemodialysis catheter, in case dialysis is indicated at some point. He continues to undergo chemotherapy at this time, which could worsen his tumor lysis syndrome and we will continue to follow his kidney function. He was given lasix today and will follow-up I/O via hooper DVT ppx- will start hepain, HIT ab was negative GI ppx- on PPI Code status- FULL CODE Total critical care time not including procedures approx 40mins I, Qi Salinas, have conducted an independent examination and history of the patient and agree with the above plan as detailed by the resident and discussed during rounds. LIZZY
[2019-11-28 11:23] LABS: BASO # 0.1 10^3/uL (0.0-0.2); BASO % 0.3 % (0.0-1.0); HEMATOCRIT 42.6 % (42.0-52.0); HEMOGLOBIN 13.8 g/dl (13.5-17.5); LYMPH # 0.3 10^3/uL (1.5-5.0); LYMPH % 1.4 % (24.0-44.0); MEAN CORPUSCULAR HEMOGLOBIN 26.1 pg (27.0-33.0); MEAN CORPUSCULAR HGB CONC 32.4 g/dl (32.0-36.5); MEAN CORPUSCULAR VOLUME 80.7 fl (80.0-96.0); MONO # 0.6 10^3/uL (0.0-0.8); MONO % 2.7 % (0.0-5.0); NEUTROPHILS # 21.9 10^3/uL (1.5-8.5); NEUTROPHILS % 91.9 % (36.0-66.0); RED BLOOD COUNT 5.28 10^6/uL (4.30-6.10); WHITE BLOOD COUNT 23.8 10^3/uL (4.0-10.0)
--- NOTE | 2019-11-28 11:24 | REP ---
Clinical: Possible retroperitoneal hemorrhage. Technique: Real time romero scale ultrasound examination using curved array transducer. Findings: Liver demonstrates innumerable low density lesions compatible with known hepatic metastases. Bilateral kidneys are normal in reniform shape without hydronephrosis. Spleen is grossly unremarkable in appearance. Generalized images through the four quadrants of the abdomen and pelvis demonstrate no abnormal fluid collection to suggest hemorrhage. Impression: 1. Limited examination demonstrating known hepatic metastases. 2. No free fluid to suggest retroperitoneal hemorrhage by sonographic evaluation. Electronically Signed by Kostas Orozco MD 11/28/2019 11:15 A
[2019-11-28 11:28] LABS: TROPONIN I 0.03 NG/ML (< 0.10)
[2019-11-28 11:30] LABS: PLATELET COUNT, AUTOMATED 51 10^3/uL (150-450)
[2019-11-28] MEDS ORDERED: NS IV ONE (12:00)
[2019-11-28] MEDS ORDERED: RASBURICASE IV ONE (12:00)
--- NOTE | 2019-11-28 12:09 | IPN ---
MEDICAL ONCOLOGY PROGRESS NOTE: DATE OF ENCOUNTER: 11/28/2019 IDENTIFICATION AND CHIEF COMPLAINT: Noah Mireles is a very pleasant 39-year-old gentleman with adenocarcinoma of gastrointestinal primary, per report of biopsy, seen in followup in the medical intensive care unit. The patient reports I'm still very short of breath but I am doing the best I can." HISTORY OF PRESENT ILLNESS: Noah Mireles is a 39-year-old gentleman with a history of present illness that dates to October 15, 2019, when he presented to [facility] in [place], [place] with dyspnea and pleuritic chest pain of 3 weeks' duration. The patient was noted be hypoxemic at that time and was hospitalized at [facility]. CT scan documented pathologic lymphadenopathy in the retroperitoneum and mesentery as well as mediastinum. He was placed on supplemental oxygen but improved clinically and was discharged home. The patient subsequently presented to [facility] on October 20, 2019, where CT scanning was again repeated and pathologic lymphadenopathy again demonstrated. The patient presented to the medical oncology practice at [facility] on November 04, 2019. He was then scheduled for retroperitoneal lymph node biopsy. However, on November 17, 2019, prior to lymph node biopsy, he presented to the emergency department at [facility] with severe dyspnea. Oxygen saturation was 80% on room air and he was admitted. Spiral CT angiography was again performed, and again showed no evidence of pulmonary embolus but again demonstrated pathologic lymphadenopathy. The patient underwent an image guided core biopsy of a retroperitoneal lymph node on November 20, 2019. That specimen was reported as showing adenocarcinoma, metastatic (pathology number [id number]), with immunohistochemical staining suggesting a gastrointestinal origin. PET/CT scan has not been obtained, and therefore, the site of the primary tumor remains to be determined. The patient has had progressively worsening respiratory status, but wished to attempt therapy and therefore began the regimen of FOLFIRINOX with Avastin on November 27, 2019. His course has been complicated by laboratory findings indicating both disseminated intravascular coagulation with coagulopathy, as well as tumor lysis syndrome prior to initiation of chemotherapy. Mr. Mireles began systemic antineoplastic therapy the afternoon of November 27, 2019 and experienced no overt acute toxicities. He remains profoundly dyspneic, and is currently in the medical intensive care unit on high-flow oxygen. A dialysis catheter was placed by Dr. Salinas late on November 27, 2019 to facilitate dialysis if required due to tumor lysis syndrome. However, with aggressive fluid hydration and allopurinol as well as input by Dr. Velez of Nephrology the patient's renal function has actually improved over the past 24 hours. ALLERGIES: The patient has no known medication allergies, but he experienced severe gastrointestinal symptoms from use of Trulicity. CURRENT MEDICATIONS: - Levemir insulin 10 units subcutaneously q.h.s. - DuoNeb inhalation therapy q.4 hours p.r.n. - rasburicase 15 mg intravenously once given on November 20, 2019 - allopurinol 200 mg p.o. q.8 hours - Veltassa 16.8 grams p.o. daily - sodium bicarbonate 325 mg p.o. q.i.d. - methylprednisolone 40 mg intravenously every 12 hours - Arixtra 2.5 mg subcutaneously daily - pantoprazole 40 mg p.o. b.i.d. - tramadol 50 mg p.o. q. 8 hours p.r.n. pain - Humalog insulin on sliding scale PAST MEDICAL HISTORY, SOCIAL HISTORY, AND FAMILY HISTORY: The patient's past medical history, social history, and family history are as documented in Hematology and Medical Oncology consultation note of November 27, 2019. REVIEW OF SYSTEMS: A complete review of systems was obtained and was negative aside from profound dyspnea. PHYSICAL EXAMINATION: The patient is a well-developed, well-nourished, heavy-set gentleman awake, alert and fully oriented, friendly and cooperative, in moderate respiratory distress on supplemental oxygen by non-rebreather. Temperature 96.6, pulse 96, respirations 24, blood pressure 126/70, oxygen saturation 91% on FiO2 of 100%. Skin: Diaphoretic, anicteric. HEENT Examination: Normocephalic, atraumatic. Pupils round and reactive, extraocular muscles intact. Sclerae anicteric. Oropharynx without lesions. Neck: Supple without thyromegaly. Lungs: Bilateral breath sounds audible without wheezing or rales appreciated. Cardiac Exam: Regular rhythm, point of maximal impulse nondisplaced. S1, S2, without gallop, rub or murmur. Full pulses. Abdomen: Obese. Active bowel sounds, soft, nontender without appreciable organomegaly. No guarding or rebound elicited. No masses noted. Lymphatics: No pathologic lymphadenopathy palpable. Extremities: Without clubbing, cyanosis or edema. Neurologic Exam: Mental status intact. Cranial nerves intact. Motor and sensory grossly intact. LABORATORY DATA: Laboratory studies dated November 20, 2019 include white blood count 19,700 per microliter, hemoglobin 12 gram per decaliter, hematocrit 36.7%, platelet count depressed at 44,000 per microliter. Sodium 131, potassium 5.5, chloride 96, bicarbonate 23, BUN 46, creatinine 1.33 mg per decaliter, glucose 386 mg per decaliter. Uric acid 11.4 mg per decaliter, markedly decreased from 15.7 mg per decaliter on November 27, 2019. Prothrombin time prolonged at 29.3 seconds, PTT greater than 240 seconds. Fibrinogen depressed at 177 mg per decaliter. D-dimer on November 25, 2019 greater than 4000 nanograms per mL. Fibrin degradation products elevated at 10. CA19-9 measured at 30,409.7 u/ml on November 18, 2019. IMPRESSION: 1. Adenocarcinoma of unknown primary. The patient has adenocarcinoma documented by retroperitoneal lymph node biopsy, with immunohistochemical stains consistent with a gastrointestinal origin. Possible sites of origin include pancreatic adenocarcinoma, adenocarcinoma of the colon or small bowel, or a biliary adenocarcinoma. The patient has a dramatically elevated CA19-9, suggesting a pancreatic primary is more likely than a colon primary. Regardless, the antineoplastic regimen FOLFIRINOX with Avastin has significant activity in all of these diseases as documented in the medical literature. The patient has received a first cycle of the agents Avastin, irinotecan and oxaliplatin, along with the modulatory drug folinic acid and has begun the 2-day infusion of 5-fluorouracil. Thus, the majority of the drugs in the first cycle have already been administered. Unfortunately, these drugs typically take 10-14 days to see a favorable affect, but if the patient can be supported through the next 10-14 days, he may survive this disease. 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 2. Disseminated intravascular coagulation. The patient has fulminant disseminated intravascular coagulation with prolongation of clotting times, hypofibrinogenemia markedly elevated D-dimers and fibrin degradation products. Xhy-rolftfbcc-nenpqu heparinoids such as Arixtra have been shown occasionally to ameliorate disseminated intravascular coagulation in the setting, and therefore use of Arixtra is entirely appropriate. However, if bleeding complications occur anticoagulation will need to be discontinued and appropriate blood products administered. Cryoprecipitate is required for replacement of fibrinogen, and either clotting factor concentrates or fresh frozen plasma administered as needed to correct prolonged prothrombin time and partial thromboplastin time. 3. 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 RECOMMENDATIONS: It is recommended that infusion of 5-fluorouracil be continued. The patient is aware of his grim prognosis, but wishes to be supported at this time. He has stated previously that he does not wish to remain on mechanical ventilation if life support is futile, but does wish aggressive supportive care initially. The patient will continue to be seen by medical oncology on a daily basis. Additional management recommendations will be forthcoming based on the patient's clinical status as it evolves. Granulocyte colony-stimulating factor subcutaneously should be initiated approximately 24 hours after completion of 5-fluorouracil infusion.
[2019-11-28] MEDS: SODIUM CHLORIDE HYPERTONIC 3% 15ML NEB SOL INH SCH ×3 (12:15→19:58)
[2019-11-28] MEDS: PATIROMER SORBITEX CALCIUM 8.4 GM POWDER PACKET (VELTASSA) PO SCH (13:10)
[2019-11-28] MEDS: traMADol 50 MG TAB PO PRN ×2 (13:11→21:03)
[2019-11-28 13:24] LABS: ABG BASE EXCESS -7.5 (-2.0-2.0); ABG HCO3 18.1 MEQ/L (22.0-26.0); ABG O2 SATURATION 84.7 % (95.0-99.0); ABG PARTIAL PRESSURE O2 55.3 mmHg (75.0-100.0); ABG STANDARD HCO3 18.2 MEQ/L (22.0-26.0); ABG TOTAL CO2 19.2 MEQ/L (22.0-29.0); ABG pH (ARTERIAL) 7.307 UNITS (7.350-7.450)
[2019-11-28] MEDS ORDERED: HEPARIN SOD (PORCINE) 5000 UNITS/ML VIAL (J1644 PER 1000UNITS) IV PRN ×3 (14:15→15:30)
[2019-11-28] MEDS ORDERED: HEPARIN 25,000 UNITS/250 ML D5W BAG (100 UNITS/ML) (J1644 PER 1000UNITS) As Ordered ONE (14:59)
[2019-11-28] MEDS ORDERED: HEPARIN DRIP 25,000 UNITS in IV 1 EA IV SCH (15:04)
[2019-11-28] MEDS: HEPARIN DRIP 25,000 UNITS in IV 1 EA IV SCH (15:33)
--- NOTE | 2019-11-28 16:51 | IPNPDOC ---
Text Note Date of Service The patient was seen on 11/28/19. NOTE SUBJECTIVE: Patient was seen in the ICU this morning. Overnight, patient went into a-fib and RVR, rate-controlled with a Cardizem drip, and spontaneously converted. In addition, a non-rebreather mask was placed, in addition to his vapotherm. Saturations are stable >88%. He remains lethargic with obvious increased work of breathing. Increased secretions and cough which may indicate increased mobilization. He reports the sensation of generalized abdominal bloating and distention. Denies chest pain. OBJECTIVE: VITAL SIGNS: See below GENERAL APPEARANCE: Interviewed and examined in ICU. Patient was found to be laying in bed with vapotherm and non-rebreather. HEENT: Normocephalic, atraumatic. Mucous members moist and pink, no obvious JVD. CARDIOVASCULAR: Regular rate and rhythm. No murmurs, rubs or gallops. Radial pulses are intact. Trace lower extremity edema. LUNGS: Diminished lung sounds in the bases bilaterally, faint wheezes. Pt able to speak in full sentences, no rales or rhonchi appreciated. ABDOMEN: Obese, soft, nontender, nondistended without signs of guarding or obvious organomegaly. MUSCULOSKELETAL: Range of motion is intact in all 4 extremities. EXTREMITIES: No lower extremities bilaterally, no calf tenderness. Pulses 2+ in both upper and lower extremities bilaterally. NEUROLOGICAL: Alert and oriented. Able to answer questions regarding medical care. Retains capacity. PSYCHOLOGICAL: Mood and affect is depressed, appropriate given current clinical condition and prognosis ASSESSMENT: Patient's 49 years old male with past history of morbid obesity, obstructive sleep apnea presented to the hospital with shortness of breath. Patient has been on high dose steroids and antibiotics with only minimal improvement in respiratory status. 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 Answer tumor markers including CA 199 and CEA are elevated. The patient's platelets have continued to drop, concerning for DIC. All potentially offending medications have been stopped. D-dimer found to be elevated, fibrinogen is low. Laboratory results the morning of 11/26 indicated tumor lysis syndrome. He was immediately started on aggressive hydration and simultaneous diuresis. Allopurinol initiated as Rasburicase is not carried in-house, though it is available via capability lead. Attempts for transfer where made and patient was accepted by [facility]. Unfortunately, patient declined transfer. Both oncology and respiratory remain on board. Through their efforts, patient was started on in-patient chemotherapy treatment. A trialysis catheter will be placed by recruiter this evening for Q4H lab draws. Following placement of the catheter, patient went into a-fib with RVR. Cardizem drip was initated and patient spontaneously converted overnight. Echo was ordered and bed-side review demonstrated RV enlargement suggestive of PE. Given patient's DIC, risk of PE remains high. An additional unit of platelets were administered and patient was started on a heparin drip. PLAN: #Acute hypoxemic respiratory failure, currently on BIPAP. Likely 2/2 diffuse carcinomatosis of lungs. Diffusion capacity greatly decreased. * DDx also includes PE or metastatic emboli * Continue oxygen therapy to maintain saturation >88% * Continue steroid taper * Low threshold for endotracheal intubation #Anemia * POS fecal occult * Hemoglobin initially trending downward from 15.4 last evening to 12.0 this morning at 0600. * Bleeding was originally suspected and hemodilution was also considered. * U/S of retroperitoneal space did not reveal hematoma. #Atrial fibrillation with RVR, s/p conversion * Following line placement last evening, patient went into A-fib with RVR. * Treated overnight with Cardizem drip with spontaneous conversion to sinus rhythm. * Echo was performed and official read pending. Bedside review did show RV dilation, suggestive of strain/PE * Well's Criteria for PE: 7.0 points, indicating high risk with 40.6% change of PE. * Risks and benefits of anticoagulation reviewed. Pt started on heparin drip following administration of 1 unit of platelets. #Tumor Lysis Syndrome * Continue aggressive hydration and Lasix * Allopurinol 200 mg Q8H * Rasburicase via capability lead, G6PD pending * Continue to monitor Phos, Uric acid, BMP Q4H * Trialysis line for possible CRRT, nephrology has been consulted and we appreciate their assistance in management of this patient. * Continue to monitor urine output #Malignancy of unknown source, most likely gastrointestinal * CT chest, abdomen, pelvis showed mediastinal, retroperitoneal lymphadenopathy and multiple liver lymph hypodense lesions * Pathology report from [facility] demonstrates really differentiated adenocarcinoma with patchy comedo-type necrosis. Nonspecific for primary site, possible primary is GI tract and less likely pancreatobiliary tract. * LDH elevated, HCG elevated. PSA within normal limit, alpha-fetoprotein within normal limits. HIV negative. * CEA elevated at 302.1, CA-19-9 elevated at 30,409.7 * Chemotherapy via PICC (5-FU), continuous transfusion over the weekend #ALANNAH, Acute renal failure * BUN/Cr increased from 28/1.17-32/1.39 on 11/22. * BUN/Cr today of 46/1.33. * Suspect to be 2/2 metastatic spread, possibly related to Tumor Lysis, treatment plan as above. * Nephrology consulted for CRRT. #Thrombocytopenia, suspect DIC * Given widespread malignancy, increased d-dimer and decreased fibrinogen. * Platelets ordered prior to trialysis catheter placement, failed to respond. * Pt to receive another unit of platelets today prior to heparin drip for suspected PE #Diabetes type 2/hyperglycemia * Hemoglobin A1c 8.8. * Patient has never been diagnosed with diabetes prior to admission. * However patient was on course of steroids for past 1 month. * Currently on high-dose steroids which will increase BSL. * Insulin sliding scale, increased to Levemir 10 units as fasting sugars have remained elevated. #Allergic asthma * Continue inhalers and home meds #Hypertension * Blood pressures under control, continue lisinopril #Obstructive sleep apnea/obesity hypoventilation syndrome * Patient will benefit with bariatric surgery * Sleep study as an outpatient #Bilateral low back pain * Percocet and Ultram for pain control * Lidoderm patch #Transaminitis * Unclear etiology at this time, liver mets vs. tumor lysis * AST/ALT of 81/147 * Total and Direct Bili, 1.2 and 0.4 respectively. * GGT of 768, Alk Phos of 221 CODE STATUS: FULL CODE, 2 WEEK TRIAL INTUBATION VS,Fishbone, I+O VS, Fishbone, I+O Laboratory Tests 11/27/19 15:39 11/27/19 20:35 11/28/19 00:26 11/28/19 04:42 11/28/19 06:17 11/28/19 09:14 11/28/19 11:06 Vital Signs Date Time Temp Pulse Resp B/P (MAP) Pulse Ox O2 Delivery O2 Flow Rate FiO2 11/28/19 14:06 96.1 106 22 131/63 91 NIPPV (BIPAP/CPAP) 100 11/28/19 11:51 40.0 I&O- Last 24 Hours up to 6 AM 11/28/19 06:00 Intake Total 6486 ml Output Total 3300 ml Balance 3186 ml JULY HAMMOND DO Nov 28, 2019 16:51
[2019-11-28 16:53] LABS: IONIZED CALCIUM 4.4 MG/DL (4.5-5.3)
[2019-11-28 17:01] LABS: BASO % 0.1 % (0.0-1.0); HEMATOCRIT 41.1 % (42.0-52.0); HEMOGLOBIN 13.6 g/dl (13.5-17.5); LYMPH # 0.2 10^3/uL (1.5-5.0); MEAN CORPUSCULAR HEMOGLOBIN 26.6 pg (27.0-33.0); MEAN CORPUSCULAR HGB CONC 33.1 g/dl (32.0-36.5); MEAN CORPUSCULAR VOLUME 80.4 fl (80.0-96.0); MONO # 0.4 10^3/uL (0.0-0.8); MONO % 1.7 % (0.0-5.0); NEUTROPHILS # 21.1 10^3/uL (1.5-8.5); NEUTROPHILS % 95.6 % (36.0-66.0); PLATELET COUNT, AUTOMATED 45 10^3/uL (150-450); RED BLOOD COUNT 5.11 10^6/uL (4.30-6.10); WHITE BLOOD COUNT 22.1 10^3/uL (4.0-10.0)
[2019-11-28 17:28] LABS: ALBUMIN 2.4 GM/DL (3.2-5.2); BILIRUBIN,TOTAL 1.6 MG/DL (0.2-1.0); CALCIUM LEVEL 7.7 MG/DL (8.5-10.1); CREATININE FOR GFR 1.49 MG/DL (0.70-1.30); GLOMERULAR FILTRATION RATE 55.3 (>60); PHOSPHORUS LEVEL 7.7 MG/DL (2.5-4.9); POTASSIUM SERUM 5.5 MEQ/L (3.5-5.1); TOTAL PROTEIN 5.2 GM/DL (6.4-8.2); URIC ACID 6.7 MG/DL (3.5-7.2)
--- NOTE | 2019-11-28 18:35 | IPN ---
DATE: 11/28/2019 SUBJECTIVE: The patient was seen and examined at the bedside today morning in the intensive care unit (ICU). He was sitting upright. He was on Vapotherm when I saw him. He was in apparent respiratory distress. His oxygen saturation was in low to mid 80s. He continues to be on 5-fluorouracil chemotherapy at this time. Renal function is stable as of today morning labs, with a creatinine of 1.1. He responded well to the intravenous (IV) Lasix 80 mg last night and he made 2.6 liters of urine yesterday. He was given a dose of Cardizem for atrial fibrillation with rapid ventricular response last night. Rasburicase is available. The patient will receive rasburicase today in the afternoon. OBJECTIVE: VITAL SIGNS: Temperature is 96.6 degrees Fahrenheit, blood pressure is 123/60, pulse is 107, respiratory of 24, saturating 84% on Vapotherm at 40% FiO2. INTAKE AND OUTPUT: Urine output urine output recorded is 2.6 liters yesterday. Weight in the bed scale is 169 kg. PHYSICAL EXAMINATION: GENERAL: The patient is awake, alert, oriented times three, morbidly obese, in moderate to severe respiratory distress wearing nasal cannula. HEAD AND NECK EXAM: Extraocular muscles intact. Pupils equally round and reactive to light. Mucous membranes are moist. He is wearing high-flow nasal cannula. Neck is supple. I could not appreciate jugular venous distention (JVD). CARDIOVASCULAR: S1, S2. Tachycardia. 1+ edema of the bilateral lower extremities. RESPIRATORY: Mildly decreased breath sounds at the bases with inspiratory crackles at the bases. No active rhonchi were noted. ABDOMEN: Obese, positive bowel sounds. GENITOURINARY: Indwelling Hunt catheter was noted. Urine in the bag is light yellow. MUSCULOSKELETAL: No clubbing or cyanosis. Pulses are 2+. CENTRAL NERVOUS SYSTEM (INFORMATION SECURITY ARCHITECT): No focal deficit. The patient is slightly agitated otherwise he moves all extremities. LABORATORY REVIEW: Complete blood count (CBC) showed a WBC of 23.8, hemoglobin 13.8, platelets are 51. INR today is 2.79. PT is 29.3. Arterial blood gas (ABG) done in the afternoon showed pH of 7.3, pCO2 of 37, CO2 55, bicarbonate is 18, oxygen saturation 84.7%. Basic metabolic panel (BMP) done in the morning showed sodium 131, potassium 5.5, chloride 96, bicarbonate 23, BUN 46, creatinine is 1.33, uric acid level is 11.4, calcium 7.5, ionized calcium is 4.4, phosphorus is 6.4. Total bilirubin 1.6, AST is 244, ALT is 264 alkaline phosphatase is 459, albumin 2.4. IMAGING STUDIES: An abdominal ultrasound was done today, which showed limited examination demonstrating known hepatic metastasis, No free fluid to suggest retroperitoneal hemorrhage. CURRENT INPATIENT MEDICATIONS: The patient's medications were all reviewed by me. He continues to be on 5-fluorouracil. He has been started on heparin drip. He was given 500 mL normal saline bolus overnight. He also got a dose of diltiazem. The patient is scheduled to get a rasburicase 15 mg IV x1 dose today. I have stopped allopurinol. He was started on Tums with meals yesterday. Arixtra has been stopped. I ordered a stat dose of Lasix 80 mg IV times one dose. His IV fluids have been decreased to 150 mL an hour in the morning, but I stopped the IV fluids in the morning. He continues to be on insulin Levemir and insulin sliding scale. He continues to be on Solu-Medrol 40 mg IV every12 hours. He was given a dose of vitamin K 10 mg by mouth times one dose, sodium bicarbonate 325 mg by mouth four times a day is new since yesterday. No other significant change in the medications today as compared with yesterday. ASSESSMENT AND PLAN: 1. Tumor lysis syndrome. The patient is getting aggressive IV fluid hydration. Renal function is a stable. Creatinine has been fluctuating between 1.1 to 1.3 now. Potassium level is within the acceptable range, even though the maximum level is 5.5 on today's labs. Uric acid level is still high, but it would improve after the rasburicase infusion. He persistently has moderate to hyperphosphatemia and mild hypocalcemia. He continues to be on phosphorus binders. Patient is responding to the IV diuretics at this time. I will continue to monitor his labs every 4 hours. He already has right internal jugular (IJ) nontunneled hemodialysis catheter now and if needed, we can start him on continuous venovenous hemodiafiltration (CVVHDF). 2. Normal anion gap metabolic acidosis. The patient is currently on oral sodium bicarbonate tablets. Latest bicarbonate level is 23, which is within the acceptable range. 3. Hyponatremia. Patient has hypovolemic hyponatremia. Sodium level is expected to improve with the use of Lasix diuretic. 4. Hypoxemic respiratory failure. Patient's respiratory status is getting worse. It is secondary to combination of lymphangitic carcinomatosis in the lungs and possible iatrogenic hypervolemia. IV fluids have been stopped now. Patient is in positive fluid balance for the last three days. He was already given a dose of Lasix 80 mg IV at night time. I ordered another dose of Lasix 80 mg IV in the morning. IV fluids have been stopped, and I see now of the pulmonary service has placed the patient on BiPAP now. 5. Metastatic adenocarcinoma. The patient is getting chemotherapy now. 5-fluorouracil is running and he is also on Neupogen to prevent leukopenia. 6. Coagulopathy. Patient has multiple metastatic lesions in the liver, from adenocarcinoma and there is a possibility he might be going into disseminated intravascular coagulation (DIC) as well. I see that the pulmonary service has started him on heparin drip as well. He was also given vitamin K today morning. DISPOSITION: Patient overall has poor prognosis, given metastatic adenocarcinoma throughout his body, lymphangitic spread of the cancer into the lungs, multiple metastases in the liver and tumor lysis syndrome with a disseminated intravascular coagulation; however, he wishes to continue aggressive treatment at this time. Total critical care time spent in the management of this patient today morning in the ICU was 45 minutes, excluding all the procedures. MTDD
[2019-11-28] MEDS ORDERED: LEVEMIR (INSULIN DETEMIR) 1 UNITS/0.01ML SC SCH (21:00)
[2019-11-28] MEDS ORDERED: **NOTE PATIENT COMMENT** MISC XX SCH (21:00)
[2019-11-28 21:17] LABS: IONIZED CALCIUM 4.2 MG/DL (4.5-5.3)
[2019-11-28 21:26] LABS: BASO % 0.1 % (0.0-1.0); HEMATOCRIT 38.6 % (42.0-52.0); HEMOGLOBIN 12.8 g/dl (13.5-17.5); LYMPH # 0.2 10^3/uL (1.5-5.0); LYMPH % 0.9 % (24.0-44.0); MEAN CORPUSCULAR HEMOGLOBIN 26.7 pg (27.0-33.0); MEAN CORPUSCULAR HGB CONC 33.2 g/dl (32.0-36.5); MEAN CORPUSCULAR VOLUME 80.4 fl (80.0-96.0); MONO # 0.2 10^3/uL (0.0-0.8); NEUTROPHILS # 19.7 10^3/uL (1.5-8.5); NEUTROPHILS % 96.8 % (36.0-66.0); WHITE BLOOD COUNT 20.3 10^3/uL (4.0-10.0)
[2019-11-28 21:27] LABS: PLATELET COUNT, AUTOMATED 36 10^3/uL (150-450)
--- NOTE | 2019-11-28 21:37 | ECGEPIP ---
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
[2019-11-28 21:49] LABS: ALBUMIN 2.2 GM/DL (3.2-5.2); BILIRUBIN,TOTAL 1.5 MG/DL (0.2-1.0); CALCIUM LEVEL 7.3 MG/DL (8.5-10.1); CREATININE FOR GFR 1.41 MG/DL (0.70-1.30); PHOSPHORUS LEVEL 7.3 MG/DL (2.5-4.9); POTASSIUM SERUM 5.2 MEQ/L (3.5-5.1); TOTAL PROTEIN 5.1 GM/DL (6.4-8.2); URIC ACID 4.3 MG/DL (3.5-7.2)
[2019-11-28 22:02] LABS: ABG BASE EXCESS -5.5 (-2.0-2.0); ABG O2 SATURATION 92.8 % (95.0-99.0); ABG PARTIAL PRESSURE O2 71.7 mmHg (75.0-100.0); ABG STANDARD HCO3 19.9 MEQ/L (22.0-26.0); ABG TOTAL CO2 21.2 MEQ/L (22.0-29.0); ABG pH (ARTERIAL) 7.328 UNITS (7.350-7.450)
[2019-11-29] VITALS (13 sets, daily range): BP systolic 90–126; BP diastolic 62–92; O2SAT 89
[2019-11-29] MEDS: SODIUM CHLORIDE HYPERTONIC 3% 15ML NEB SOL INH SCH ×5 (00:57→15:18)
[2019-11-29] MEDS: IPRATROPIUM 0.5MG/ALBUTEROL 2.5MG INH SOL UD 3ML (DUONEB)(J7620) INH SCH ×5 (00:57→15:18)
[2019-11-29 01:10] LABS: IONIZED CALCIUM 4.3 MG/DL (4.5-5.3)
[2019-11-29] MEDS: NS 1,000 ML IV SCH ×2 (01:18→10:01)
[2019-11-29 02:04] LABS: ALBUMIN 2.5 GM/DL (3.2-5.2); BILIRUBIN,TOTAL 1.5 MG/DL (0.2-1.0); CALCIUM LEVEL 8.1 MG/DL (8.5-10.1); CREATININE FOR GFR 1.66 MG/DL (0.70-1.30); GLOMERULAR FILTRATION RATE 48.8 (>60); PHOSPHORUS LEVEL 8.2 MG/DL (2.5-4.9); POTASSIUM SERUM 5.5 MEQ/L (3.5-5.1); TOTAL PROTEIN 5.2 GM/DL (6.4-8.2); URIC ACID 3.7 MG/DL (3.5-7.2)
[2019-11-29] MEDS ORDERED: HumaLOG INSULIN (NovoLOG) PER UNIT SC ONE ×2 (02:15→12:30)
[2019-11-29 05:17] LABS: IONIZED CALCIUM 4.2 MG/DL (4.5-5.3)
[2019-11-29 05:26] LABS: BASO % 0.1 % (0.0-1.0); HEMOGLOBIN 12.5 g/dl (13.5-17.5); LYMPH # 0.2 10^3/uL (1.5-5.0); LYMPH % 0.8 % (24.0-44.0); MEAN CORPUSCULAR HEMOGLOBIN 26.4 pg (27.0-33.0); MEAN CORPUSCULAR HGB CONC 32.9 g/dl (32.0-36.5); MEAN CORPUSCULAR VOLUME 80.2 fl (80.0-96.0); MONO # 0.1 10^3/uL (0.0-0.8); MONO % 0.7 % (0.0-5.0); NEUTROPHILS # 17.3 10^3/uL (1.5-8.5); NEUTROPHILS % 97.6 % (36.0-66.0); RED BLOOD COUNT 4.74 10^6/uL (4.30-6.10); WHITE BLOOD COUNT 17.7 10^3/uL (4.0-10.0)
[2019-11-29 05:28] LABS: PLATELET COUNT, AUTOMATED 47 10^3/uL (150-450)
[2019-11-29] MEDS: SLF 3 ML SYR IV SCH (06:00)
[2019-11-29] MEDS: SODIUM CHLORIDE 0.9% INJ 10 ML SYR IV SCH (06:00)
[2019-11-29 06:04] LABS: ALT/SGPT 173 U/L (12-78); BILIRUBIN,TOTAL 1.3 MG/DL (0.2-1.0); BLOOD UREA NITROGEN 63 MG/DL (7-18); CALCIUM LEVEL 6.8 MG/DL (8.5-10.1); CARBON DIOXIDE LEVEL 21 MEQ/L (21-32); CHLORIDE LEVEL 101 MEQ/L (98-107); CREATININE FOR GFR 1.37 MG/DL (0.70-1.30); GLOMERULAR FILTRATION RATE > 60.0 (>60); GLUCOSE, FASTING 442 MG/DL (70-100); PHOSPHORUS LEVEL 6.9 MG/DL (2.5-4.9); POTASSIUM SERUM 4.7 MEQ/L (3.5-5.1); SODIUM LEVEL 134 MEQ/L (136-145); TOTAL PROTEIN 4.6 GM/DL (6.4-8.2); URIC ACID 2.6 MG/DL (3.5-7.2)
[2019-11-29 06:06] LABS: ABG BASE EXCESS -3.4 (-2.0-2.0); ABG O2 SATURATION 91.7 % (95.0-99.0); ABG PARTIAL PRESSURE CO2 36.2 mmHg (35.0-45.0); ABG PARTIAL PRESSURE O2 67.4 mmHg (75.0-100.0); ABG STANDARD HCO3 21.5 MEQ/L (22.0-26.0); ABG TOTAL CO2 22.1 MEQ/L (22.0-29.0); ABG pH (ARTERIAL) 7.382 UNITS (7.350-7.450)
[2019-11-29] MEDS: HumaLOG INSULIN (NovoLOG) PER UNIT SC SCH (07:25)
--- NOTE | 2019-11-29 07:41 | REP ---
Clinical: Shortness of breath. Comparison: 11/27/2019. Findings: Mediastinum and cardiac silhouette are stable. Double-lumen right IJ catheter with tip in the SVC/right atrium stable. Right PICC line with tip in the SVC stable. Diffuse bilateral alveolar and interstitial infiltrates again noted and essentially unchanged. No obvious effusion. No pneumothorax. Skeletal structures intact. Impression: 1. Diffuse bilateral alveolar and interstitial infiltrates unchanged. Electronically Signed by Kostas Orozco MD 11/29/2019 07:32 A
--- NOTE | 2019-11-29 07:52 | ECHO ---
DATE OF PROCEDURE: 11/28/2019 REFERRING PROVIDER: Dr. Qi Salinas. REASON FOR STUDY: Cardiac arrhythmia. 2D MEASUREMENTS: IVS - 1.2 cm LV - 3.8 cm LVPW - 1.2 cm LA - 3.0 cm Aorta - 2.5 cm LV - 3.0 cm IVC - 2.3 cm DOPPLER MEASUREMENTS: Peak velocity across the aortic valve - 1.7 meters per second Peak velocity across the LVOT - 1.5 meters per second Mitral E 0.48, Mitral A - 0.76 with a ratio of 0.6 Maximum tricuspid valve velocity 4.4 meters per second 2D COMMENTS: 1. Technically limited study due to poor acoustic window secondary to lung interference. 2. The left ventricular size is normal as well as left ventricular wall thickness and left ventricular systolic function. The estimated global left ventricular systolic ejection fraction is 60-65%. 3. Normal left atrium. The right atrium and the right ventricle appeared to be mildly enlarged in limited views. The right ventricular free wall was not well visualized. 4. The atrial septum appeared to be normal without evidence of defect or shunt. 5. Normal aortic root. 6. Trace pericardial effusion noted particularly anteriorly and there was no evidence of cardiac component. 7. The aortic valve appeared to be normal. Mildly calcified mitral annulus with normal anterior mitral leaflet motion. Normal tricuspid valve and pulmonic valve. The proximal pulmonary artery branches appeared to be mildly enlarged. 8. The inferior vena cava in limited views appeared to be mildly enlarged. Doppler detects trace to mild mitral regurgitation and moderate to severe tricuspid regurgitation. The calculated pulmonary artery systolic pressure varies between 70-80 mmHg. Abnormal relaxation pattern was noted across the mitral valve leaflets as well as the mitral valve annulus consistent with features of grade 1 left ventricular diastolic dysfunction. BUBBLE STUDY: Bubble study done with agitated normal saline did not reveal any of bubbles from the right heart chambers to the left. IMPRESSION: 1. Technically limited study due to poor acoustic window secondary to lung interference. 2. Normal global left ventricular systolic function. There are some features of grade 1 left ventricular diastolic dysfunction manifested by abnormal relaxation. 3. Mitral annulus calcification with trace to mild mitral regurgitation. 4. Moderately severe tricuspid regurgitation with dilated right heart chambers and severe pulmonary hypertension. Trace pericardial effusion, no evidence of cardiac component. 5. Bubble study done with agitated normal saline was negative for intracardiac shunts.
[2019-11-29] MEDS: CALCIUM CARBONATE 500 MG CHEW U/D PO SCH ×2 (08:00→11:55)
[2019-11-29] MEDS: HEPARIN 1,000 UNITS/ML 10ML VIAL (FOR RADIOLOGY& DIALYSIS ONLY)(J1644-10) IV PRN ×3 (08:48→13:27)
[2019-11-29] MEDS: LIDOCAINE 5% (LIDODERM) PATCH TD SCH (09:00)
[2019-11-29] MEDS ORDERED: LEVEMIR (INSULIN DETEMIR) 1 UNITS/0.01ML SC SCH ×3 (09:00→21:00)
[2019-11-29] MEDS ORDERED: methylPREDNISolone INJ 40 MG/1 ML VIAL (J2920) IV SCH (09:00)
[2019-11-29 09:09] LABS: IONIZED CALCIUM 4.3 MG/DL (4.5-5.3)
[2019-11-29] MEDS: DULoxetine 30 MG CAP (CYMBALTA) PO SCH (09:16)
[2019-11-29] MEDS: SODIUM BICARBONATE 325 MG TAB PO SCH ×2 (09:16→13:01)
[2019-11-29 09:17] LABS: HEMATOCRIT 39.2 % (42.0-52.0); HEMOGLOBIN 12.7 g/dl (13.5-17.5); MEAN CORPUSCULAR HEMOGLOBIN 26.1 pg (27.0-33.0); MEAN CORPUSCULAR HGB CONC 32.4 g/dl (32.0-36.5); MEAN CORPUSCULAR VOLUME 80.5 fl (80.0-96.0); RED BLOOD COUNT 4.87 10^6/uL (4.30-6.10); WHITE BLOOD COUNT 18.6 10^3/uL (4.0-10.0)
[2019-11-29] MEDS: traMADol 50 MG TAB PO PRN (09:17)
[2019-11-29] MEDS: PANTOPRAZOLE 40MG TAB (PROTONIX) PO SCH (09:18)
[2019-11-29 09:22] LABS: PLATELET COUNT, AUTOMATED 43 10^3/uL (150-450)
[2019-11-29 09:26] LABS: INR 1.62; PROTHROMBIN TIME 18.9 SECONDS (11.8-14.0)
[2019-11-29 09:28] LABS: PARTIAL THROMBOPLASTIN TIME 79.2 SECONDS (25.0-38.4)
[2019-11-29 09:50] LABS: ALBUMIN 2.4 GM/DL (3.2-5.2); BILIRUBIN,TOTAL 1.5 MG/DL (0.2-1.0); CREATININE FOR GFR 1.77 MG/DL (0.70-1.30); GLOMERULAR FILTRATION RATE 45.4 (>60); PHOSPHORUS LEVEL 8.1 MG/DL (2.5-4.9); POTASSIUM SERUM 5.3 MEQ/L (3.5-5.1); TOTAL PROTEIN 5.3 GM/DL (6.4-8.2); URIC ACID 2.6 MG/DL (3.5-7.2)
[2019-11-29] MEDS: HEPARIN DRIP 25,000 UNITS in IV 1 EA IV SCH (10:59)
--- NOTE | 2019-11-29 11:16 | IPNPDOC ---
Text Note Date of Service The patient was seen on 11/29/19. NOTE Subjective: Patient's oxygen requirements is still very high, overnight he was on the BiPAP. Objective:VITAL SIGNS: Please see below. GENERAL APPEARANCE: Obese male on BiPAP HEENT: Normocephalic, atraumatic. Mucous members moist and pink CARDIOVASCULAR: Tachycardic with heart rate 125, S1-S2 LUNGS: Rhonchorous sound bilaterally ABDOMEN: Abdomen is soft and nontender, obese MUSCULOSKELETAL: Range of motion is intact in all 4 extremities NEUROLOGICAL: Cranial nerves II-12 are grossly intact. Speech is not dysarthric Patient is 49 years old male with past medical history of morbid obesity, obstructive sleep apnea presented hospital with increased shortness of breath. 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 During hospital stay patient developed acute respiratory failure, tumor lysis syndrome, DIC. Palliative on 11/28/19. Acute hypoxemic respiratory failure Secondary to lymphangitic spread of adenocarcinoma of the lungs. There is also possibility for pulmonary emboli, patient received cryoprecipitate and platelets transfusion. Well's score shows high probability of PE started empirically heparin infusion Patient is very close to be intubated Patient was fluid overloaded overnight, he received IV Lasix Continue BiPAP for now metastatic adenocarcinoma of unknown origin Extensive workup revealed metastatic adenocarcinoma most likely from GI Palliative chemotherapy started on 11/28/19, the antineoplastic regimen FOLFIRINOX with Avastin Prognosis is grim, but the patient wants aggressive treatment Dr. Davis follows the patient Tumor lysis syndrome Continue rasburicase continue phosphorus binders. Patient is responding to the IV diuretics at this time Will follow electrolytes and uric acid Type 2 diabetes I increased the dose of detemir 30 units twice a day Will check glucose level every 4 hours Insulin sliding scale Anemia Stool for occult blood positive Most likely secondary to blood loss from GI due to malignancy Continue monitor Ultrasound negative for retroperitoneal bleed Acute kidney failure Most likely secondary to tumor lysis syndrome superimposed with aggressive chemotherapy Slightly improved today Continue to monitor DIC Patient has had increased PT, PTT, INR, thrombocytopenia, d-dimer Patient received cryoprecipitate Thrombocytopenia Platelet count dropped overnight most likely due to DIC, malignancy Patient received thrombocytes transfusion VS,Fishbone, I+O VS, Fishbone, I+O Laboratory Tests 11/28/19 11:06 11/28/19 16:47 11/28/19 21:04 11/29/19 00:50 11/29/19 05:04 11/29/19 08:46 Vital Signs Date Time Temp Pulse Resp B/P (MAP) Pulse Ox O2 Delivery O2 Flow Rate FiO2 11/29/19 09:17 27 90 NIPPV (BIPAP/CPAP) 100 11/29/19 08:00 96.6 128 111/92 (98) 11/28/19 11:51 40.0 I&O- Last 24 Hours up to 6 AM 11/29/19 06:00 Intake Total 1670 ml Output Total 2345 ml Balance -675 ml SHAY EDUARDO DO Nov 29, 2019 11:16
[2019-11-29] MEDS ORDERED: LORazepam 2 MG/ML VIAL (J2060) As Ordered ONE (11:45)
[2019-11-29] MEDS: PATIROMER SORBITEX CALCIUM 8.4 GM POWDER PACKET (VELTASSA) PO SCH (11:55)
[2019-11-29] MEDS: LORazepam 2 MG/ML VIAL (J2060) IV PRN (11:56)
--- NOTE | 2019-11-29 12:45 | IPN ---
MEDICAL ONCOLOGY PROGRESS NOTE DATE: 11/29/2019 IDENTIFICATION AND CHIEF COMPLAINT: Noah Mireles is a 39-year-old gentleman with adenocarcinoma of gastrointestinal primary, seen in followup in the medical intensive care unit. The patient reports "I am still short of breath but I am hanging in there". HISTORY OF PRESENT ILLNESS: Noah Mireles is a 39-year-old gentleman with history present illness that dates to October 15, 2019 when he presented to [facility] in [place], [place] with dyspnea and pleuritic chest pain of 3 weeks duration. The patient was noted to be hypoxemic at that time and was hospitalized at [facility]. CT scan documented pathologic lymphadenopathy in the retroperitoneum mesentery as well as mediastinum.He was discharged from [facility], but subsequently was admitted to [facility] on October 20, [address] scan at that time again showed pathologic lymphadenopathy above and below the diaphragm. He ultimately presented to medical oncology on November 04, 2019 at [facility] and was scheduled for retroperitoneal lymph node biopsy. However, before lymph node biopsy could be obtained, he presented to the emergency department at [facility] on November 17, 2019 and was hypoxemic with oxygen saturation of 80%. 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 A retroperitoneal lymph node biopsy on November 20, 2019 documented metastatic adenocarcinoma (pathology number [id number]) with immunohistochemical staining suggesting a gastrointestinal origin. PET/CT scan has not yet been performed and therefore the site of the primary tumor remains to be determined. However the CA19-9 is markedly elevated, suggesting a likely pancreatic or hepatobiliary primary malignancy. The patient was begun on FULFIRINOX chemotherapy on November 27, 2019, and 5-fluorouracil continues to be infused, with the infusion anticipated to be completed later today. The patient has had progressively worsening respiratory status and is now on BiPAP, with oxygen saturation in the range of 90-91% with 100% FiO2. He remains awake, alert and fully oriented, but his respiratory status is tenuous. His hospital course has been complicated both by disseminated intravascular coagulation with coagulopathy and thrombocytopenia, as well as by tumor lysis syndrome prior to chemotherapy, with acute kidney injury. The patient received rasburicase on November 20, 2019 with a marked drop in the uric acid level. ALLERGIES: The patient has no known medication allergies but he experienced severe gastrointestinal symptoms from use of Trulicity. CURRENT MEDICATIONS: - filgrastim 480 mcg subcutaneously to begin on November 30, 2019 - Levemir insulin 30 units subcutaneously twice a day - methylprednisolone 40 mg intravenously daily - heparin intravenously per protocol - DuoNeb every 4 hours - allopurinol 200 mg by mouth every 8 hours - diltiazem infusion every 8 hours as needed, currently on hold - Patiromer 16.8 grams by mouth daily. - Zofran 4 mg intravenously every 6 hours as needed - pantoprazole 40 mg by mouth twice a day - tramadol 50 mg by mouth every 8 hours as needed pain - Humalog insulin on sliding scale. PAST MEDICAL HISTORY, SOCIAL HISTORY, AND FAMILY HISTORY: The patient's past medical history, social history and family history are as documented in the hematology and medical oncology consultation note of November 27, 2019 REVIEW OF SYSTEMS: A complete review of systems was obtained and was negative aside from profound dyspnea and fatigue. PHYSICAL EXAMINATION: The patient is a well-developed, well-nourished gentleman awake, alert and fully oriented friendly and cooperative but in respiratory distress with BiPAP in place. Temperature 96.6, pulse 128, respirations 24, blood pressure 111/98, oxygen saturation 90% on FiO2 of 100%. SKIN: Diaphoretic, anicteric. HEENT: Examination normocephalic, atraumatic. Pupils equal round reactive to light and accommodate. Extraocular muscles intact. Sclerae anicteric. Oropharynx without lesions. NECK: Supple without appreciable thyromegaly. LYMPHATICS: No pathologic lymphadenopathy noted. LUNGS: Bilateral breath sounds, tachypneic: No rales appreciated. No wheezing noted. CARDIAC EXAM: Tachycardia noted. Point of maximal impulse nondisplaced. S1, S2, without appreciable gallop, rub or murmur. ABDOMEN: Obese, active bowel sounds, soft, nontender without appreciable organomegaly. No guarding or rebound elicited. RECTAL EXAMINATION: Deferred. EXTREMITIES: Trace edema. No clubbing or cyanosis. NEUROLOGIC EXAMINATION: Mental status intact. Cranial nerves intact. Motor and sensory intact grossly. LABORATORY DATA: Laboratory studies dated November 29, 2019 include white blood count 18,600/microliter, hemoglobin 12.7 gm/dL, hematocrit 39.2%, platelet count 43,000. Sodium 129, potassium 5.3, chloride 92, bicarbonate 24, BUN markedly elevated at 70, creatinine 1.77 mg/dL, glucose 515 mg/dL, uric acid 2.6 mg/dL, phosphorus elevated to 8.1 mg/dL, total bilirubin 1.5 mg/dL, AST 150, decreased from 193 on October, ALT 198 decreased from 232 on October, alkaline phosphatase 383 decreased from 433 on November 28, 2019, albumin 2.4 gm/dL CA19-9 30,409.7 units/ mL on November 18, 2019. IMPRESSION: 1. Adenocarcinoma of unknown primary. The patient has adenocarcinoma documented by retroperitoneal lymph node biopsy with immunohistochemical stains consistent with a gastrointestinal origin. 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 Regardless, the anti neoplastic regimen FULFIRINOX with Avastin has significant activity in these diseases. The patient will complete the first cycle of FULFIRINOX with Avastin later today. It would be helpful to repeat the CA 19 - 9 as this may be an indicator of the response to therapy whether favorable or unfavorable. 2. Disseminated intravascular coagulation: The patient has disseminated intravascular coagulation with prolongation of clotting times, hypofibrinogenemia, elevated D-dimers and elevated fiber degradation products. He is now receiving unfractionated heparin, and this may ameliorate the patient's DIC. 3. Tumor lysis syndrome: The patient has tumor lysis syndrome but this appears to be improving following rasburicase therapy. 4. Respiratory distress: The patient has severe respiratory distress and the patient may succumb to respiratory failure, likely on the basis of lymphangitic carcinomatosis, before there is an opportunity for chemotherapy to cytoreduce tumor burden. This was discussed with the patient, his brother and his mother who were at bedside today. RECOMMENDATIONS: This recommended that the F-fluorouracil be completed today and that 24 hours after completion, the patient begin Neupogen 480 mcg subcutaneously daily in order to ameliorated neutropenia and avoid neutropenic sepsis. It is also recommended that the CA 19-9 be repeated either on November 29 or December 01, 2019 as this will be an indication of whether or not the patient is responding to antineoplastic therapy. The patient will continue to be monitored throughout his hospital course. He will be due for a second cycle of FOLFIRINOX with Avastin on December 11, 2019 if he can survive that long. Additional management recommendations will be forthcoming based on his clinical status as it evolves.
--- NOTE | 2019-11-29 12:52 | CCN ---
DATE OF SERVICE: 11/29/2019 SUBJECTIVE: The patient was seen and examined overnight and this morning. Yesterday evening, the patient was desaturating well on Vapotherm at 100% FIO2 in an overlying nonrebreather mask. The patient was saturating in the 86% to 87% and was noted to be more tachypneic with an increased respiratory rate into the 30s. He was, therefore, placed on noninvasive positive pressure ventilation with bilateral positive airway pressure (BiPAP) at 100% FIO2 and initially with average volume assured pressure support (AVAPS) mode. His oxygen (O2) saturation did improve to 91% to 92% initially. The patient was also noted to be less tachypneic, and he reported improvement in his shortness of breath on the BiPAP. Overnight, however, the patient was noted to be desaturating on the BiPAP on 100% FIO2 down to 87%, sometimes lower. He does desaturate with very limited movement, as well. He was, therefore, changed from BiPAP to continuous positive airway pressure (CPAP) overnight with a pressure of 14 cm and 100% FIO2. His O2 saturations did improve on CPAP back into 90% to 91%. The patient also reported feeling some improvement in terms of his shortness of breath and tolerating the pressure more while on CPAP. This morning, he states his breathing is unchanged. In fact, he feels may be slightly better compared to yesterday. His ABG this morning does not show any hypercarbia; and while he is hypoxic, his pO2 has remained stable. He does continue to have some cough, which is nonproductive. With the hypertonic nebulizer treatments, he feels it has helped somewhat in terms of loosening the congestion in his chest. He does continue to have some low back pain. He is noted to be more tachycardic this morning, although appears to be in a sinus tachycardia and is not in atrial fibrillation. Overnight, the patient's platelets were noted to be trending down. He was given an additional 1 unit of platelet transfusion overnight. OBJECTIVE: PHYSICAL EXAMINATION: Vital signs: Temperature 96.6, pulse 128, respirations 24, blood pressure 111/92, O2 saturation 91% on CPAP at 100% FIO2. Intake 2.9 liters, output 2.6 liters, net positive 265 mL. General: The patient is an obese male. Is lying in bed. Is awake and alert. Is mildly tachypneic and is using some accessory muscles for respiration. HEENT: Normocephalic, atraumatic. Mucous membranes are moist. Neck is thick. Trachea is midline. There is a right internal jugular (vein) (IJ) Trialysis catheter in place. Cardiovascular: Tachycardiac, regular rate and rhythm. Normal S1, S2. Unable to appreciate any murmurs. Lungs: There are diminished breath sounds bilaterally with some coarse rhonchi noted, somewhat improved from yesterday. No wheezing. Abdomen is obese, is soft, nontender, nondistended. There are ecchymoses noted in his lower abdomen. Extremities: There is no significant bilateral lower extremity edema noted. There is a right peripherally inserted central catheter (PICC) line in place with some bruising and ecchymosis in his arm. LABORATORIES: WBC 17.7, hemoglobin 12.5, platelets are 47. Chemistry: Glucose is 134, potassium is 4.7, chloride is 101, bicarbonate is 21, BUN is 63, creatinine is 1.37, glucose is 442, uric acid trending down to 2.6, calcium is 6.8, phosphorus 6.9, T Bili 1.3, albumin 2.0, AST and ALT slightly trending down to 134 and 173. Arterial blood gas (ABG) this morning, pH is 7.382, pCO2 of 36.2, pO2 of 67.4. PTT was 66.8. IMAGING: Chest x-ray this morning shows right-sided PICC line and a Trialysis catheter in place in the right IJ with the tip in the superior vena cava (SVC). There are bilateral diffuse interstitial infiltrates, which are unchanged. ASSESSMENT AND PLAN: Mr. 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 The patient's hospital course was also complicated by thrombocytopenia and DIC as well as tumor lysis syndrome with acute renal failure. The patient was started on chemotherapy with FOLFIRINOX with Avastin and is completing his 2-day infusion of 5-FU today. The patient had been requiring increasing amounts of oxygen supplementation, and there was concern for possible pulmonary embolism given his malignancy versus tumor emboli. He did have a at once (STAT) echocardiogram done, which did show evidence of severe pulmonary hypertension and mildly dilated right ventricle (RV). As the patient was unable to get a CT angiogram due to his renal failure, he was started on empiric anticoagulation with close monitoring for bleeding with his thrombocytopenia. Acute hypoxemic respiratory failure likely secondary to lymphangitic carcinomatosis versus pulmonary embolism versus tumor emboli. - The patient was on Vapotherm with a nonrebreather yesterday. However, continued to have episodes of desaturation and so was placed on noninvasive positive pressure ventilation initially with AVAPS mode and overnight was changed to a CPAP with some improvement in his oxygenation and in his tachypnea. - Will continue to closely monitor his respiratory status and his ABG. He does not have any evidence of hypercarbia for now. We did discuss that if his respiratory status continues to decompensate that he may require intubation and mechanical ventilation, which the patient is agreeable for although he understands he will likely have difficulty with weaning from the ventilator. His mother who is his HCP has instructions from him that he would only want to be mechanically ventilated for a period of two weeks and then extubated, palliatively if needed. - Will continue with empiric anticoagulation with a heparin drip and will monitor and titrate his partial thromboplastin time (PTT) accordingly. - The patient continues to have thrombocytopenia and has had 2 units of platelet transfusion since his admission. Will continue to monitor his platelets and transfuse as needed. Will continue to monitor hemoglobin, as well. He does have a haptoglobin pending to evaluate for potential hemolytic anemia. He did have an abdominal ultrasound yesterday, which did not show any evidence of retroperitoneal bleeding. - Will continue to monitor his fibrinogen, as he did have mild DIC likely in the setting of his metastatic cancer. - Will continue with nebulizer treatments with hypertonic saline nebulizers and acapella to help with mucus clearance. - The patient was given Lasix yesterday by nephrology, and his fluids were on hold due to some concern for potential pulmonary edema contributing to his worsening hypoxia. His x-ray had not shown any significant change, however, since his initial admission. With the diuresis, he did not have any improvement in his oxygenation; and with his renal function and tumor lysis, he was restarted on gentle hydration yesterday evening, which he has been tolerating. Tumor lysis syndrome with acute renal failure. - Appreciate nephrology consult and recommendations. The patient was initially on allopurinol and then was given rasburicase once it was available for his tumor lysis syndrome. He has also received aggressive fluid hydration, as well as Lasix as needed. His uric acid, potassium, and phosphorus are continuing to improve. - Will continue with phosphate binders as per nephrology and continue with gentle hydration with normal saline at 100 mL/h for now and continue monitoring his intake and output. - Will attempting to keep the patient net even for now. He may require additional as needed Lasix as needed. - The patient does have a non-anion gap metabolic acidosis likely in the setting of his renal failure. He was getting sodium bicarbonate. Will continue as per renal. Metastatic adenocarcinoma, likely gastrointestinal (GI) primary based on pathology. - Appreciate oncology recommendations and consult. He was started on FOLFIRINOX with Avastin for chemotherapy and is completing his 48-hour of 5-FU today. - The patient was also started on Neupogen prophylactically for neutropenia. His white blood cell (WBC) is trending down. Will continue to monitor and will monitor for any evidence of infection and treat empirically if needed with antibiotics. - If the patient is to have a response to chemotherapy, he would respond in 10- 14 days. 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 Atrial fibrillation with rapid ventricular response (RVR). - The patient had new-onset atrial fibrillation and RVR and was treated with diltiazem with conversion back into sinus rhythm. - He is tachycardiac today but appears to be a sinus arrhythmia potentially due to his hypoxemia, as well as from pain, as he does report chronic back pain. - Will continue with pain control as needed. - The patient is on anticoagulation for presumed pulmonary embolism (PE), which will also treat his atrial fibrillation for his atrial fibrillation. - The patient's echocardiogram did show a normal ejection fraction (EF) with mildly dilated RA and RV and severe pulmonary hypertension, as well as some grade 1 diastolic dysfunction. He has a trace pericardial effusion but no evidence of tamponade. - Will continue to monitor; and if he does go into atrial fibrillation with rapid ventricular response, would need further medications for rate control. Can consider digoxin. DIC with thrombocytopenia and coagulopathy. The patient was noted to have a low fibrinogen initially and was given cryoprecipitate. He then continued to have continued thrombocytopenia and has been transfused so far 2 units of platelets. He was also given vitamin K initially due to his coagulopathy. - Will continue to monitor his platelet counts and hemoglobin and hematocrit and transfuse as needed. Will keep an active type and screen. - Will followup with his fibrinogen, as well. - The patient is on anticoagulation currently with heparin for presumed PE. Will need to monitor his PTT closely and monitor for any signs of bleeding. Deep venous thrombosis (DVT) prophylaxis, on heparin drip. GI prophylaxis, proton pump inhibitor (PPI). CODE STATUS: FULL CODE. TOTAL CRITICAL CARE TIME SPENT: Not including procedures, approximately 45 minutes. PREETHID
[2019-11-29 13:41] LABS: IONIZED CALCIUM 4.3 MG/DL (4.5-5.3)
[2019-11-29 14:19] LABS: ACETONE/KETONE 5.44 MG/DL (<2.81); ALBUMIN 2.5 GM/DL (3.2-5.2); BILIRUBIN,TOTAL 1.5 MG/DL (0.2-1.0); CALCIUM LEVEL 8.3 MG/DL (8.5-10.1); CREATININE FOR GFR 1.78 MG/DL (0.70-1.30); GLOMERULAR FILTRATION RATE 45.1 (>60); PHOSPHORUS LEVEL 7.8 MG/DL (2.5-4.9); POTASSIUM SERUM 5.5 MEQ/L (3.5-5.1); TOTAL PROTEIN 5.4 GM/DL (6.4-8.2); URIC ACID 2.6 MG/DL (3.5-7.2)
[2019-11-29] MEDS ORDERED: HumaLOG INSULIN (NovoLOG) PER UNIT SC STA (14:39)
[2019-11-29] MEDS: PERCOCET 5MG/325MG TAB PO PRN (15:20)
--- NOTE | 2019-11-29 15:33 | IPN ---
DATE OF SERVICE: 11/29/2019 Noah is seen and examined this morning in the intensive care unit. He continues on bilateral positive airway pressure (BiPAP) at 100% FIO2, and his oxygen saturations have been in the low 90s with a corresponding pO2 on his arterial blood gas (ABG) of 67. Nursing staff reports he is making about 75-100 mL/h. He continues with every 4-hour laboratories. His uric acid has improved nicely since rasburicase was started, but he continues to have persistent hyperphosphatemia and an elevated calcium phosphorus product. There is, as well, persistent hyperglycemia and hyperkalemia. The patient was unable to converse due to BiPAP and shortness of breath and does seem to have increased work of breathing even at rest. Nursing staff reports that he has been refusing some of the oral medications and also oral intake. He continues on gentle intravenous (IV) fluid normal saline at 100 mL/h, which was started yesterday evening after discussion with the knit goods washer. Vital signs: Temperature 96.6, pulse 128 and pulse has been generally 110s-120s, respiratory rate 21-27, blood pressure 111/92, saturating 90% to 91% on 100% BiPAP. General: The patient is seen in bed in the intensive care unit. Head of the bed is elevated, and he is sitting up at almost 90 degrees. Obese male. Awake, alert. Appears to have increased work of breathing. BiPAP mask in place. Makes eye contact. Neck is obese. Jugular veins are difficult to assess. There is some accessory muscle use for respiration. There is mild tachypnea. There is a central line in the right neck. Cardiac: Tachycardiac. Heart rate 120s. Unable to appreciate murmurs. Lungs: Coarse breath sounds bilaterally. No overt crackles or rales. Abdomen is obese with pannus. Genitourinary: Shows the indwelling Hunt with dark-colored urine. Extremities: There is no peripheral edema. There is some scattered ecchymosis on his right arm and a peripherally inserted central catheter (PICC) line there, as well. Neurologic: He is cooperative with physical examination and is unable to converse because of BiPAP mask. LABORATORIES: Sodium 129, glucose 515, corrected sodium is normal, potassium 5.3, bicarbonate 24, BUN 70, creatinine 1.7, uric acid 2.6, ionized calcium 4.3, phosphorus 8.1, albumin 2.4, hemoglobin 12.7, white count 18.6, platelets 43. Chest x-ray 11/29/2019: Diffuse bilateral alveolar and interstitial infiltrates without any obvious effusions. INPATIENT MEDICATIONS: He was started last night at normal saline at 100 mL/h. His allopurinol was discontinued. He has been refusing Tums. He is due to start Neupogen tomorrow. Arixtra was stopped. He is presently on heparin drip. He received a dose of Lasix 60 mg yesterday at 5 p.m. His insulin has been adjusted multiple times by the primary service. His Solu-Medrol was reduced to 20 mg IV daily. His remainder of medications are unchanged from prior. PROBLEMS: 1. Nonoliguric acute kidney injury related to tumor lysis syndrome in this patient with metastatic adenocarcinoma with lymphangitic spread. The patient is receiving judicious IV fluids, normal saline at 100 mL/h, and I am reluctant to increase his IV fluids given his tenuous respiratory status and requiring full support of BiPAP mask. His urine output has been satisfactory thus far, averaging 75-100 mL/h, and his electrolytes do show some modest improvement. For his hyperkalemia, he continues on Veltassa, although I feel if his sugars are controlled his potassium is likely to improve, as well. His uric acid has responded nicely to rasburicase. His calcium phosphorus product does remain persistently elevated close to 70, which is worrisome. However, there are no urgent indications for renal replacement therapy at present, and I would continue with every 4-hour laboratories, IV fluids, and intermittent diuretic if needed. 2. 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 The patient is requiring 100% FIO2 on BiPAP with a pO2 on ABG of only 67. Although he does not seem to have any significant fluid problems, it is rather difficult to assess fluid status given his morbid obesity and in view of his tenuous respiratory status. We are giving judicious IV fluids at this time of normal saline at 100 mL/h. He is a high risk for intubation and mechanical ventilation and is followed closely by the knit goods washer service and is also on empiric anticoagulation which is deferred to them and has been requiring platelet transfusion. 3. Anion gap metabolic acidosis. The patient's corrected anion gap is 15, and his glucose is more than 500. I am getting a beta hydroxybutyrate level. He is receiving IV steroids, so the dose has been cut down, and insulin has been adjusted frequently by the primary team. He also does continue on oral sodium bicarbonate. DISPOSITION: The patient is critically ill with hypoxemic respiratory failure, evolving renal injury, disseminated intravascular coagulation, tumor lysis syndrome, and metastatic adenocarcinoma. His prognosis is poor, and we will continue to reassess him frequently as needed.
[2019-11-29] MEDS ORDERED: FILGRASTIM 480 MCG/0.8 ML SYRINGE (J1442) SC SCH (16:00)
[2019-11-29] MEDS ORDERED: AMIODARONE HCL 360 MG/200 ML PREMIXED BAG (NEXTERONE) (J0282 PER 30MG) As Ordered ONE (17:00)
[2019-11-29] MEDS ORDERED: HumaLOG INSULIN (NovoLOG) PER UNIT SC SCH (18:00)
--- NOTE | 2019-11-29 18:01 | DS.PDOC ---
Discharge Summary General Date of Admission Nov 17, 2019 at 14:52 Date of Discharge 11/29/19 Discharge Summary PROCEDURES PERFORMED DURING STAY: [None]. ADMITTING DIAGNOSES: Acute hypoxemic respiratory failure metastatic adenocarcinoma of unknown origin Tumor lysis syndrome Type 2 diabetes Anemia Acute kidney failure DIC Thrombocytopenia DISCHARGE DIAGNOSES: Acute hypoxemic respiratory failure metastatic adenocarcinoma of unknown origin Tumor lysis syndrome Type 2 diabetes Anemia Acute kidney failure DIC Thrombocytopenia COMPLICATIONS/CHIEF COMPLAINT: Acute Hypoxemic Respiratory Failure. HISTORY OF PRESENT ILLNESS: Patient is 39 years old male with past medical history of morbid obesity, obstr uctive sleep apnea presented hospital with increased shortness of breath. 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 During hospital stay patient developed acute respiratory failure, tumor lysis syndrome, DIC. Palliative on 11/28/19. HOSPITAL COURSE: During hospital stay following issue addressed Acute hypoxemic respiratory failure Secondary to lymphangitic spread of adenocarcinoma of the lungs. There is also possibility for pulmonary emboli, patient received cryoprecipitate and platelets transfusion. Well's score shows high probability of PE started empirically heparin infusion metastatic adenocarcinoma of unknown origin Extensive workup revealed metastatic adenocarcinoma most likely from GI Palliative chemotherapy started on 11/28/19, the antineoplastic regimen FOLFIRINOX with Avastin Prognosis was grim, but the patient wants aggressive treatment Tumor lysis syndrome Patient received rasburicase Around 1640 patient developed cardiorespiratory arrest. CPR was done for 8 minutes, intubation was done after 5 minutes of CPR started. According to family wishes CPR was stopped after 8 minutes. Patient was pronounced at 1650. DISCHARGE MEDICATIONS: Please see below. ALLERGIES: Please see below. PHYSICAL EXAMINATION ON DISCHARGE: VITAL SIGNS: Please see below. GENERAL: HEENT: NECK: CARDIOVASCULAR EXAMINATION: RESPIRATORY EXAMINATION: ABDOMINAL EXAMINATION: EXTREMITIES: SKIN: NEUROLOGICAL EXAMINATION: PSYCHIATRIC EXAMINATION: LABORATORY DATA: Please see below. IMAGING: PROGNOSIS: ACTIVITY: [As tolerated]. DIET: DISCHARGE PLAN: DISPOSITION: . DISCHARGE INSTRUCTIONS: 1. . ITEMS TO FOLLOWUP ON ON OUTPATIENT: 1. . DISCHARGE CONDITION: [Stable]. TIME SPENT ON DISCHARGE: Greater than minutes. Vital Signs/I&Os Vital Signs Date Time Temp Pulse Resp B/P (MAP) Pulse Ox O2 Delivery O2 Flow Rate FiO2 11/29/19 15:20 135 28 92 100 11/29/19 09:47 NIPPV (BIPAP/CPAP) 11/29/19 08:00 96.6 111/92 (98) 11/28/19 11:51 40.0 I&O- Last 24 Hours up to 6 AM 11/29/19 05:59 Intake Total 2880 ml Output Total 2470 ml Balance 410 ml Laboratory Data Labs 24H Laboratory Tests 2 11/28/19 20:51: Bedside Glucose (Misc Panel) 507*H 11/28/19 21:04: Immature Granulocyte % (Auto) 1.2, Neutrophils (%) (Auto) 96.8H, Lymphocytes (%) (Auto) 0.9L, Monocytes (%) (Auto) 1.0, Eosinophils (%) (Auto) 0.0, Basophils (% ) (Auto) 0.1, Neutrophils # (Auto) 19.7H, Lymphocytes # (Auto) 0.2L, Monocytes # (Auto) 0.2, Eosinophils # (Auto) 0.0, Basophils # (Auto) 0.0, Nucleated Red Blood Cells % (auto) 0.0, Activated Partial Thromboplast Time 73.4H, Anion Gap 10, Glomerular Filtration Rate 59.0L, Uric Acid 4.3, Calcium Level 7.3L, Whole Blood Ionized Calcium 4.2L, Phosphorus Level 7.3H, Total Bilirubin 1.5H, Aspartate Amino Transf (AST/SGOT) 174H, Alanine Aminotransferase (ALT/SGPT) 214H, Alkaline Phosphatase 410H, Total Protein 5.1L, Albumin 2.2L, Albumin/Globulin Ratio 0.76L 11/28/19 21:25: Blood Gas Bicarbonate Standard 19.9L, Arterial Blood pH 7.328L, Arterial Blood Partial Pressure CO2 39.0, Arterial Blood Partial Pressure O2 71.7L, Arterial Blood Total CO2 21.2L, Arterial Blood HCO3 20.0L, Arterial Blood Base Excess - 5.5L, Arterial Blood Oxygen Saturation 92.8L 11/29/19 00:50: Anion Gap 13, Glomerular Filtration Rate 48.8L, Uric Acid 3.7, Calcium Level 8.1L, Whole Blood Ionized Calcium 4.3L, Phosphorus Level 8.2H, Total Bilirubin 1.5H, Aspartate Amino Transf (AST/SGOT) 166H, Alanine Aminotransferase (ALT/SGPT) 213H, Alkaline Phosphatase 398H, Total Protein 5.2L, Albumin 2.5L, Albumin/Globulin Ratio 0.93L 11/29/19 05:03: Activated Partial Thromboplast Time 66.8H 11/29/19 05:04: Immature Granulocyte % (Auto) 0.8, Neutrophils (%) (Auto) 97.6H, Lymphocytes (%) (Auto) 0.8L, Monocytes (%) (Auto) 0.7, Eosinophils (%) (Auto) 0.0, Basophils (%) (Auto) 0.1, Neutrophils # (Auto) 17.3H, Lymphocytes # (Auto) 0.2L, Monocytes # (Auto) 0.1, Eosinophils # (Auto) 0.0, Basophils # (Auto) 0.0, Nucleated Red Blood Cells % (auto) 0.0, Anion Gap 12, Glomerular Filtration Rate > 60.0, Uric Acid 2.6L, Calcium Level 6.8#L, Whole Blood Ionized Calcium 4.2L, Phosphorus Level 6.9H, Total Bilirubin 1.3H, Aspartate Amino Transf (AST/SGOT) 134H, Alanine Aminotransferase (ALT/SGPT) 173H, Alkaline Phosphatase 348H, Total Protein 4.6L, Albumin 2.0L, Albumin/Globulin Ratio 0.77L 11/29/19 06:02: Blood Gas Bicarbonate Standard 21.5L, Arterial Blood pH 7.382, Arterial Blood Partial Pressure CO2 36.2, Arterial Blood Partial Pressure O2 67.4L, Arterial Blood Total CO2 22.1, Arterial Blood HCO3 21.0L, Arterial Blood Base Excess - 3.4L, Arterial Blood Oxygen Saturation 91.7L 11/29/19 08:46: Activated Partial Thromboplast Time 79.2H, Nucleated Red Blood Cells % (auto) 0.0, Anion Gap 13, Glomerular Filtration Rate 45.4L, Uric Acid 2.6L, Calcium Level 8.0#L, Whole Blood Ionized Calcium 4.3L, Phosphorus Level 8.1H, Total Bilirubin 1.5H, Aspartate Amino Transf (AST/SGOT) 150H, Alanine Aminotransferase (ALT/SGPT) 198H, Alkaline Phosphatase 383H, Total Protein 5.3L, Albumin 2.4L, Albumin/Globulin Ratio 0.83L, Immature Platelet Fraction 13.0H, Prothrombin Time 18.9H, Prothromb Time International Ratio 1.62 11/29/19 12:06: Bedside Glucose (Misc Panel) 501*H 11/29/19 13:26: Anion Gap 12, Glomerular Filtration Rate 45.1L, Uric Acid 2.6L, Calcium Level 8 .3L, Whole Blood Ionized Calcium 4.3L, Phosphorus Level 7.8H, Total Bilirubin 1.5H, Aspartate Amino Transf (AST/SGOT) 150H, Alanine Aminotransferase (ALT/SGPT) 197H, Alkaline Phosphatase 376H, Total Protein 5.4L, Albumin 2.5L, Albumin/Globulin Ratio 0.86L, B-Hydroxybutyrate 5.44H 11/29/19 15:40: Bedside Glucose (Misc Panel) 491H CBC/BMP Laboratory Tests 11/28/19 21:04 11/29/19 00:50 11/29/19 05:04 11/29/19 08:46 11/29/19 13:26 FSBS Laboratory Tests Test 11/28/19 20:51 11/29/19 12:06 11/29/19 15:40 Range/Units Bedside Glucose (Misc Panel) 507 501 491 70-105 MG/DL Microbiology Microbiology 11/24/19 Blood Culture - Final, Complete NO GROWTH AFTER 5 DAYS 11/22/19 Stool Occult Blood (SAIRA) - Final, Complete Discharge Medications Scheduled Budesonide/Formoterol (Symbicort 80-4.5 Mcg Inhaler) 6.9 Gm Hfa.aer.ad, 2 PUFF INH BID, (Reported) Duloxetine Hcl (Duloxetine HCl) 30 Mg Capsule.dr, 30 MG PO DAILY, (Reported) Lisinopril (Lisinopril) 10 Mg Tablet, 10 MG PO DAILY, (Reported) Meloxicam (Meloxicam) 15 Mg Tablet, 15 MG PO DAILY, (Reported) Montelukast Sodium (Montelukast Sodium) 10 Mg Tablet, 10 MG PO DAILY, (Reported) Omeprazole (Omeprazole) 20 Mg Capsule.dr, 20 MG PO DAILY, (Reported) Scheduled PRN Ipratropium/Albuterol Sulfate (Iprat-Albut 0.5-3(2.5) mg/3 ml) 3 Ml Ampul.neb, 1 VIAL NEB Q6H PRN for SHORTNESS OF BREATH, (Reported) Simethicone (Simethicone) 180 Mg Capsule, 180 MG PO TID PRN for GAS PAIN, (Reported) Allergies Coded Allergies: dulaglutide (Verified Adverse Reaction, Unknown, 11/17/19) GI upset SHAY EDUARDO DO Nov 29, 2019 18:01
[2019-11-30 08:09] LABS: HEPATITIS B SURFACE ANTIBODY POSITIVE (POSITIVE)
[2019-11-30 08:21] LABS: HEPATITIS B SURFACE ANTIGEN NEGATIVE (NEGATIVE)
[2019-11-30 08:49] LABS: HEPATITIS B CORE ANTIBODY IGM NEGATIVE (NEGATIVE)
[2019-11-30] MEDS ORDERED: FILGRASTIM 480 MCG/0.8 ML SYRINGE (J1442) SC SCH ×2 (09:00→16:00)
[2019-11-30] MEDS ORDERED: methylPREDNISolone INJ 40 MG/1 ML VIAL (J2920) IV SCH (09:00)
[2019-12-03 00:10] LABS: G6PD2 5.74 x10E6/uL (4.14-5.80)
== END 2019-11-29 18:37 | disposition expired | DRG 681 ==
LOC: M ED 12:20 → M PCU 14:52 → ENRESERVDT 15:48 → ENRESERVTM 15:48 → M MSPAV 11-21 17:22 → UNDODISIN 11-23 12:03 → M PCU 11-26 16:55 → M ICU 11-27 13:35
PROVIDERS: ADMIT Internal Medicine; ATTEND Internal Medicine
PROC: 07BD3ZX Excision of Aortic Lymphatic, Percutaneous Approach, Diagnostic (ICD-10-PCS; principal; 2019-11-19 16:00)
PROC: 02HV33Z Insertion of Infusion Device into Superior Vena Cava, Percutaneous Approach (ICD-10-PCS; 2019-11-26)
PROC: 3E04305 Introduction of Other Antineoplastic into Central Vein, Percutaneous Approach (ICD-10-PCS; 2019-11-27)
PROC: 02HV33Z Insertion of Infusion Device into Superior Vena Cava, Percutaneous Approach (ICD-10-PCS; 2019-11-27)
PROC: 30233R1 Transfusion of Nonautologous Platelets into Peripheral Vein, Percutaneous Approach (ICD-10-PCS; 2019-11-27)
DX: C77.2 Secondary and unspecified malignant neoplasm of intra-abdominal lymph nodes (principal); D65 Disseminated intravascular coagulation [defibrination syndrome]; E88.3 Tumor lysis syndrome; J96.21 Acute and chronic respiratory failure with hypoxia; J12.9 Viral pneumonia, unspecified; E87.2 Acidosis; J84.9 Interstitial pulmonary disease, unspecified; N17.9 Acute kidney failure, unspecified; J82 Pulmonary eosinophilia, not elsewhere classified; E66.2 Morbid (severe) obesity with alveolar hypoventilation; Z68.43 Body mass index [BMI] 50.0-59.9, adult; I48.91 Unspecified atrial fibrillation; E11.65 Type 2 diabetes mellitus with hyperglycemia; C26.9 Malignant neoplasm of ill-defined sites within the digestive system; I46.9 Cardiac arrest, cause unspecified; K76.89 Other specified diseases of liver; J45.909 Unspecified asthma, uncomplicated; I10 Essential (primary) hypertension; G89.29 Other chronic pain; M54.5 Low back pain; R74.0 Nonspecific elevation of levels of transaminase and lactic acid dehydrogenase [LDH]; K21.9 Gastro-esophageal reflux disease without esophagitis; Z87.891 Personal history of nicotine dependence; Z79.1 Long term (current) use of non-steroidal anti-inflammatories (NSAID); Z79.899 Other long term (current) drug therapy; Z88.8 Allergy status to other drugs, medicaments and biological substances; I87.2 Venous insufficiency (chronic) (peripheral); D86.9 Sarcoidosis, unspecified; Z91.19 Patient's noncompliance with other medical treatment and regimen